=== PATIENT | male | born 1940 | race Caucasian/White ===

== ENCOUNTER → 2017-10-18 | Outpatient (RCR) | payer MEDICARE, SELFPAY | LOC: OT 07-19 07:52 | PROVIDERS: PCP Internal Medicine; Visit Provider Nurse Practitioner Family | DX: M84.44 Pathological fracture, hand and fingers (principal) | CPT/HCPCS: G8990; G8991; G8992; 97140 ==

== ENCOUNTER → 2017-12-24 13:40 | Outpatient (CLI) | payer MEDICARE, SELFPAY ==
--- NOTE | 2017-12-24 13:52 | XR_ITS ---
XR hip RT 2-3V w/pelvis HISTORY: Right hip pain ITS.REASON: BILAT KNEE AND HIP ARTHRITIS ORDERING PHYSICIAN: Rob Ayala PATIENT AGE: 77 years COMPARISON: None FINDINGS: Mild osteoarthritic changes involve the right hip. No fracture or dislocation. No lytic or blastic change. There is a well-circumscribed 3 cm sclerotic focus along the mid sacrum. This was mentioned on previous exam of 6-15 and is not significantly changed. IMPRESSION: Osteoarthritis of the right hip
--- NOTE | 2017-12-24 13:52 | XR_ITS ---
XR hip LT 2-3V w/pelvis HISTORY: Left hip pain ITS.REASON: BILAT KNEE AND HIP ARTHRITIS ORDERING PHYSICIAN: Rob Ayala PATIENT AGE: 77 years COMPARISON: 03/22/2015 FINDINGS: There are mild osteoarthritic changes of the left hip not significantly changed. No acute fracture or dislocation. No lytic or blastic change. IMPRESSION: No change mild osteoarthritis of the left hip
--- NOTE | 2017-12-24 13:52 | XR_ITS ---
XR knee RT 3V HISTORY: Right knee pain ITS.REASON: BILAT KNEE AND HIP ARTHRITIS ORDERING PHYSICIAN: Rob Ayala PATIENT AGE: 77 years COMPARISON: 11/05/2011 FINDINGS: There are moderate osteoarthritic changes involving all 3 compartments with decrease in the joint space and osteophyte formation. Chondrocalcinosis involves the menisci. No fracture or dislocation. IMPRESSION: Moderate osteoarthritis of the right knee with chondrocalcinosis overall not significant changed
--- NOTE | 2017-12-24 13:52 | XR_ITS ---
XR knee LT 3V HISTORY: Left knee pain ITS.REASON: BILAT KNEE AND HIP ARTHRITIS ORDERING PHYSICIAN: Rob Ayala PATIENT AGE: 77 years COMPARISON: 03-22-15 FINDINGS: There are moderate to severe osteoarthritic changes involving all 3 compartments greater at the medial compartment with decrease in the joint space and osteophyte formation. Soft tissue calcification is present along the medial femoral condyle and could be due to prior avulsion fracture or old ligamentous injury. This has developed since previous exam. There is chondrocalcinosis of the menisci No fracture or dislocation. IMPRESSION: 1. Moderate to severe osteoarthritic changes which has somewhat progressed when compared to the previous exam. 2. Calcification along the medial femoral condyle which may be seen with prior MCL avulsion/Debby-Stieda lesion
== END ==
PROVIDERS: PCP Internal Medicine; Visit Provider Internal Medicine
DX: M17.0 Bilateral primary osteoarthritis of knee (principal); M16.0 Bilateral primary osteoarthritis of hip
CPT/HCPCS: 73502; 73562

== ENCOUNTER 2018-04-01 08:30 | Outpatient (RCR) | payer MEDICARE, SELFPAY | END 2018-04-01 08:31 | disposition home or self-care (01) | LOC: PT 08:30 | PROVIDERS: Family Provider Internal Medicine; PCP Internal Medicine; Visit Provider Orthopaedic Surgery | DX: M17.0 Bilateral primary osteoarthritis of knee (principal) | CPT/HCPCS: 97110; 97112; 97163 ==

== ENCOUNTER → 2018-06-24 10:25 | Outpatient (CLI) | payer MEDICARE, SELFPAY ==
[2018-06-24 10:30] LABS: Microscopic, Urine URINE MICROSCOPIC (MICROSCOPIC)
--- NOTE | 2018-06-24 10:42 | XR_ITS ---
XR chest 2V HISTORY: ITS.REASON: HTN ORDERING PHYSICIAN: Rob Ayala PATIENT AGE: 77 years COMPARISON: 12/04/2012 FINDINGS: There has been a prior median sternotomy. Coronary artery calcifications are present. Normal heart size. Lungs are free of acute infiltrate. Degenerative changes are present in the thoracic spine. There is mild wedging of T9 which appears chronic. IMPRESSION: Prior CABG, no change with no acute finding
[2018-06-24 10:54] LABS: Basophils # 0.1 K/mm3 (0-0.2); Basophils % 0.7 % (0.1-2.0); Eosinophils # 0.1 K/mm3 (0.0-0.4); Eosinophils % 1.6 % (0.1-12.0); Hematocrit 44.4 % (42.0-52.0); Hemoglobin 14.2 g/dL (14.1-18.0); Lymphocytes # 1.7 K/mm3 (0.7-4.5); Lymphocytes % 23.7 K/mm3 (10-50); Mean Corpuscular HGB Conc 31.9 g/dL (31.8-35.4); Mean Corpuscular Hemoglobin 28.6 pg (27.0-31.2); Mean Corpuscular Volume 89.7 fl (80-94); Mean Platelet Volume 7.2 fl (7.4-10.4); Monocytes # 0.5 K/mm3 (0.1-1.0); Neutrophils # 4.8 K/mm3 (1.8-7.8); Neutrophils % 67.1 % (37.0-80.0); Platelet Count 225 K/mm3 (142-424); Red Blood Count 4.95 M/mm3 (4.60-6.20); Red Cell Distribution Width 13.2 % (11.5-17.5); White Blood Count 7.1 K/mm3 (4.8-10.8)
[2018-06-24 11:02] LABS: Activated Partial Thrombo Time 25.9 seconds (23.6-34.0); INR 0.95 (0.9-1.1); Prothrombin Time 9.8 seconds (9.4-11.8)
[2018-06-24 11:21] LABS: Appearance,Urine CLEAR (Clear); Bilirubin,Urine Negative (Negative); Blood, Urine Negative (Negative); Color,Urine YELLOW (Yellow); Glucose,Urine (UA) 1+ (Negative); Ketones,Urine Negative (Negative); Leukocyte Esterase,Urine Negative (Negative); Nitrate,Urine Negative (Negative); Protein,Urine Negative (Negative); Urobilinogen,Urine 0.2 EU/dl (0.2)
[2018-06-24 11:37] LABS: Bacteria,Urine Trace /lpf
[2018-06-24 12:12] LABS: Hemoglobin A1C 8.5 % (0.0-7.0)
[2018-06-24 13:44] LABS: Anion Gap 15.4 mEq/L (5-15); Blood Urea Nitrogen 17 mg/dL (7-18); Carbon Dioxide 29 mmol/L (21.0-32.0); Chloride 100 mmol/L (98-107); Creatinine,Serum 1.24 mg/dL (0.70-1.30); Estimated Glomerular Filt Rate 57 ml/min (>60); GFR (African American) 69 ML/MIN (>60); Glucose 231 mg/dL (74-106); Potassium 4.4 mmoL/L (3.5-5.1); Sodium 140 mmol/L (136-145)
== END ==
PROVIDERS: PCP Internal Medicine; Visit Provider Internal Medicine
DX: Z01.810 Encounter for preprocedural cardiovascular examination (principal); E11.59 Type 2 diabetes mellitus with other circulatory complications; I25.10 Atherosclerotic heart disease of native coronary artery without angina pectoris; I10 Essential (primary) hypertension; M17.0 Bilateral primary osteoarthritis of knee
CPT/HCPCS: 36415; 71046; 80048; 81001; 83036; 85025; 85610; 85730

== ENCOUNTER 2018-10-09 10:00 | Outpatient (RCR) | payer MEDICARE, SELFPAY | END 2018-10-09 10:05 | disposition home or self-care (01) | LOC: PT 10:00 | PROVIDERS: Visit Provider Orthopaedic Surgery | DX: Z96.651 Presence of right artificial knee joint (principal) | CPT/HCPCS: 97110; 97140; 97163 ==

== ENCOUNTER 2019-01-30 10:00 | Outpatient (RCR) | payer MEDICARE, SELFPAY | END 2019-01-30 10:05 | disposition home or self-care (01) | LOC: PT 10:00 | PROVIDERS: Visit Provider Orthopaedic Surgery | DX: R26.9 Unspecified abnormalities of gait and mobility (principal); Z96.652 Presence of left artificial knee joint | CPT/HCPCS: 97016; 97033; 97110; 97112; 97140; 97163 ==

== ENCOUNTER → 2019-06-16 14:11 | Outpatient (CLI) | payer MEDICARE, SELFPAY ==
[2019-06-16 15:38] LABS: Blood Urea Nitrogen 28 mg/dL (7-18); Creatinine,Serum 1.34 mg/dL (0.70-1.30); Estimated Glomerular Filt Rate 52 ml/min (>60); GFR (African American) 63 ML/MIN (>60)
== END ==
PROVIDERS: Visit Provider Psychiatry & Neurology Neurology
DX: R79.89 Other specified abnormal findings of blood chemistry (principal)
CPT/HCPCS: 36415; 82565; 84520

== ENCOUNTER → 2019-06-19 09:46 | Outpatient (CLI) | payer MEDICARE, SELFPAY ==
--- NOTE | 2019-06-19 09:54 | CA_ITS ---
APPROVED REPORT Driver Examiner: TIM Laterality: Bilateral Study Quality: Good Indications: Dizziness and Vertigo, CVA/TIA: Doppler Spectral Velocity Analysis ECA (R) 108.00/ cm/s ECA (L) 88.80/ cm/s dICA (R) 85.60/23.60 cm/s dICA (L) 62.80/19.80 cm/s Brock (R) 62.10/15.70 cm/s Brock (L) 58.70/17.20 cm/s pICA (R) 42.40/9.43 cm/s pICA (L) 41.60/14.10 cm/s dCCA (R) 66.00/12.60 cm/s dCCA (L) 65.20/14.10 cm/s pCCA (R) 61.30/13.40 cm/s pCCA (L) 90.40/14.10 cm/s Vert (R) 40.10/ cm/s Vert (L) 45.60/ cm/s ICA/CCA 1.30 ICA/CCA 0.96 Findings Duplex evaluation demonstrates stenosis of the right proximal internal carotid artery in the range of 20-49% with PSV <140 cm/sec, EDV <100 cm/sec, and IC/CC Ratio <4.0.Duplex evaluation demonstrates stenosis of the left proximal internal carotid artery <20% with PSV <140 cm/sec, EDV <100 cm/sec, and IC/CC Ratio <4.0.Antegrade flow seen bilateral vertebral arteries. Conclusion Duplex evaluation demonstrates stenosis of the right proximal internal carotid artery in the range of 20-49% with PSV <140 cm/sec, EDV <100 cm/sec, and IC/CC Ratio <4.0.Duplex evaluation demonstrates stenosis of the left proximal internal carotid artery <20% with PSV <140 cm/sec, EDV <100 cm/sec, and IC/CC Ratio <4.0.Antegrade flow seen bilateral vertebral arteries. Electronically signed by : Jim Pisano MD 06/19/2019 14:23:55
== END ==
PROVIDERS: PCP Internal Medicine; Visit Provider Psychiatry & Neurology Neurology
DX: I63.89 Other cerebral infarction (principal)
CPT/HCPCS: 93306; 93880

== ENCOUNTER → 2019-06-23 08:34 | Outpatient (CLI) | payer MEDICARE, SELFPAY ==
--- NOTE | 2019-06-23 08:38 | MR_ITS ---
PROCEDURE: MR HEAD/BRAIN WO/W CON CLINICAL INDICATION: ISCHEMIC STROKE, CEREBRAL INFARCTION Multiple mini strokes. Right hand and fingers affected, dizziness COMPARISON: HEADWO CT head/brain wo con from 05/06/2019 TECHNIQUE: Multiplanar multi echo sequences are performed without and with gadolinium enhancement FINDINGS: There is generalized atrophy with periventricular ischemic gliotic change. There are old bilateral lacunar infarctions of the basal ganglia. There is a small area of restricted diffusion in the left silverio radiata in the subcortical region consistent with a small area of acute/subacute infarction. No intracranial hemorrhage midline shift or mass effect. No enhancing lesions are evident. The cerebellopontine angle, cerebellum, and brainstem are unremarkable. Trace air-fluid level noted in the left maxillary sinus. There are degenerative changes in the upper cervical spine with bulging disc at C3-C4 and C4-C5 with suspected could severe canal stenosis at C4-C5 and may be confirmed with follow-up MRI of the cervical spine if clinically warranted IMPRESSION: 1. Small acute/subacute subcortical infarction in the left silverio radiata of the parietal lobe 2. Atrophy with chronic ischemic changes. 3. 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
== END ==
PROVIDERS: PCP Internal Medicine; Visit Provider Psychiatry & Neurology Neurology
DX: I63.9 Cerebral infarction, unspecified (principal)
CPT/HCPCS: 70553; A9576

== ENCOUNTER 2019-09-29 10:00 | Outpatient (RCR) | payer MEDICARE, SELFPAY | END 2019-09-29 10:05 | disposition home or self-care (01) | LOC: PT 10:00 | PROVIDERS: PCP Internal Medicine; Visit Provider Psychiatry & Neurology Neurology | DX: R26.81 Unsteadiness on feet (principal) | CPT/HCPCS: 97110; 97112; 97163; 97164 ==

== ENCOUNTER → 2020-11-28 09:35 | Outpatient (CLI) | payer MEDICARE, SELFPAY ==
--- NOTE | 2020-11-28 09:40 | XR_ITS ---
PROCEDURE: XR SHOULDER LT MIN 2V CLINICAL INDICATION: FALL, LT SHOULDER INJURY/WEAKNESS Posttraumatic pain COMPARISON: No exams were available for comparison FINDINGS: There are moderate osteoarthritic changes of the acromioclavicular joint and glenohumeral joint. No acute fracture or dislocation is evident. There is a prominent spur along the undersurface the chromium causing severe subacromial stenosis. This may result in impingement symptomatology and rotator pathology. MRI may further evaluate if clinically desired. IMPRESSION: 1. No acute fracture. 2. Osteoarthritis with subacromial spurring and subacromial stenosis Dictated by: Jim Pisano MD 11/28/2020 10:01 Jim Pisano MD in [facility] 11/28/2020 10:01
== END ==
PROVIDERS: PCP Internal Medicine; Visit Provider Internal Medicine
DX: W19.XXXA Unspecified fall, initial encounter (principal); S49.92XA Unspecified injury of left shoulder and upper arm, initial encounter; R53.1 Weakness
CPT/HCPCS: 73030

== ENCOUNTER → 2020-11-29 08:05 | Outpatient (CLI) | payer MEDICARE, SELFPAY ==
--- NOTE | 2020-11-29 08:10 | MR_ITS ---
PROCEDURE: MR SHOULDER LT WO CON CLINICAL INDICATION: LEFT SHOULDER INJURY, LT SHOULDER PAIN S/P FALL WITH INJURY TO LEFT SHOULDER. PT C/O LIMITED ROM AND STATES HE HEARD A POP 4 DAYS AGO. PRIOR HX OF LEFT SHOULDER SURGERY FOR ROTATOR CUFF. PT HAS SIGNIFICANT BRUISING OVER LEFT SHOULDER AREA. COMPARISON: CR XR SHOULDER LT MIN 2V from 11/28/2020 TECHNIQUE: Routine multiplanar multi echo sequences are performed without gadolinium enhancement. FINDINGS: There is diffuse increased T2 signal of the soft tissues of the left shoulder in the subcoracoid region, axillary region, subdeltoid area and at the shoulder joint consistent with edematous/hemorrhagic changes from the patient's recent trauma. There is some artifact present from prior surgery. There are osteoarthritic changes of the acromioclavicular joint with hypertrophic changes along the undersurface of the acromion with subacromial stenosis. There is complete tear of the infraspinatus tendon with retraction of the musculotendinous fibers. There has been prior repair of the supraspinatus tendon. Some fibers do appear intact. The subscapularis and teres minor tendons appear intact. No obvious labral tear. There is a small shoulder joint effusion. Heterogeneous signal intensity is present involving the humeral head at the bicipital tendon groove region. There is thickening of the tissues at this area with increase in T2 signal. The bicipital tendon appears thickened at this area cannot confirm that the bicipital tendon is intact proximal to this region. Prominent subchondral cystic changes are present involving the humeral head with irregularity of the greater tuberosity there is some artifact from metallic fragments in the subcutaneous tissues. There is a slightly high-riding humeral head IMPRESSION: 1. Osteoarthritic changes of the acromioclavicular joint and glenohumeral joint with high-riding humeral head and subacromial stenosis. 2. Complete tear of the infraspinatus tendon with retraction of the musculotendinous fibers. 3. Prior supraspinatus repair. At least some fibers do appear intact to the greater tuberosity region. 4. Thickening of the bicipital tendon at the bicipital groove. Cannot confirm that the bicipital tendon is intact proximal to this region. 5. Postsurgical changes with artifact with subchondral cystic changes of the humeral head and shoulder joint effusion. 6. Diffuse increased T2 signal within the soft tissues deep to the deltoid and about the shoulder consistent with edematous changes and or hemorrhage from recent trauma Dictated by: Jim Pisano MD 12/01/2020 07:05 Jim Pisano MD in [facility] 12/01/2020 07:05
== END ==
PROVIDERS: PCP Internal Medicine; Visit Provider Internal Medicine
DX: M25.512 Pain in left shoulder (principal); S49.92XA Unspecified injury of left shoulder and upper arm, initial encounter
CPT/HCPCS: 73221

== ENCOUNTER → 2021-02-01 14:37 | Outpatient (CLI) | payer MEDICARE, SELFPAY ==
[2021-02-01 14:46] LABS: Microscopic, Urine URINE MICROSCOPIC (MICROSCOPIC)
--- NOTE | 2021-02-01 15:27 | ECG_ITS ---
APPROVED REPORT Exam: Resting ECG HR:91 bpm ECG Measurements Heart Rate 91 AXES ID 178 P 52 QRSd 166 QRS -60 QT 402 T 46 QTc 494 Conclusion Normal sinus rhythm Right bundle branch block Left anterior fascicular block Bifascicular block Minimal voltage criteria for LVH, may be normal variant Abnormal ECG Electronically signed by : Rob Ayala, 02/01/2021 16:46:09
[2021-02-01 15:37] LABS: Basophils % 0.4 % (0.1-2.0); Eosinophils # 0.1 K/mm3 (0.0-0.4); Eosinophils % 0.9 % (0.1-12.0); Hematocrit 43.7 % (42.0-52.0); Hemoglobin 14.1 g/dL (14.1-18.0); Lymphocytes # 1.5 K/mm3 (0.7-4.5); Lymphocytes % 17.9 % (10-50); Mean Corpuscular HGB Conc 32.3 g/dL (31.8-35.4); Mean Corpuscular Hemoglobin 29.5 pg (27.0-31.2); Mean Corpuscular Volume 91.4 fl (80-94); Mean Platelet Volume 8.3 fl (7.4-10.4); Monocytes # 0.4 K/mm3 (0.1-1.0); Monocytes % 5.2 % (1.7-9.3); Neutrophils # 6.4 K/mm3 (1.8-7.8); Neutrophils % 75.6 % (37.0-80.0); Platelet Count 213 K/mm3 (142-424); Red Blood Count 4.78 M/mm3 (4.60-6.20); Red Cell Distribution Width 13.3 % (11.5-17.5); White Blood Count 8.4 K/mm3 (4.8-10.8)
[2021-02-01 15:42] LABS: Appearance,Urine CLEAR (Clear); Bilirubin,Urine Negative (Negative); Blood, Urine Negative (Negative); Color,Urine YELLOW (Yellow); Glucose,Urine (UA) 2+ (Negative); Ketones,Urine Negative (Negative); Leukocyte Esterase,Urine Negative (Negative); Nitrate,Urine Negative (Negative); Protein,Urine Negative (Negative); Specific Gravity, Urine 1.025 (1.005-1.030); Urobilinogen,Urine 0.2 EU/dl (0.2)
[2021-02-01 16:06] LABS: Chloride 100 mmol/L (98-107); Sodium 136 mmol/L (136-145)
[2021-02-01 16:07] LABS: Potassium 4.5 mmoL/L (3.5-5.1)
[2021-02-01 16:09] LABS: Blood Urea Nitrogen 27 mg/dl (9-20)
[2021-02-01 16:10] LABS: Anion Gap 17.5 mEq/L (5-15); Calcium 9.8 mg/dl (8.4-10.2); Carbon Dioxide 23 mmol/L (22.0-30.0); Estimated Glomerular Filt Rate 65 ml/min (>60); GFR (African American) 78 ML/MIN (>60); Glucose 266 mg/dl (74-100)
[2021-02-01 16:35] LABS: Activated Partial Thrombo Time 25.7 seconds (22.8-30.6); INR 0.87 (0.9-1.1); Prothrombin Time 10.4 seconds (10.1-12.5)
[2021-02-01 17:17] LABS: Bacteria,Urine Trace /lpf; RBC,Urine Occasional #/hpf (0-3); Squamous Epithelial Cell,Urine Occasional #/hpf (0-5)
[2021-02-01 19:10] LABS: Hemoglobin A1C 9.3 % (4.0-6.0)
== END ==
PROVIDERS: Visit Provider Internal Medicine
DX: Z01.810 Encounter for preprocedural cardiovascular examination (principal); I10 Essential (primary) hypertension; E11.59 Type 2 diabetes mellitus with other circulatory complications; E11.42 Type 2 diabetes mellitus with diabetic polyneuropathy; Z79.4 Long term (current) use of insulin; Z51.81 Encounter for therapeutic drug level monitoring; Z79.01 Long term (current) use of anticoagulants
CPT/HCPCS: 36415; 80048; 81001; 83036; 85025; 85610; 85730; 93005

== ENCOUNTER 2021-02-15 08:00 | Outpatient (RCR) | payer MEDICARE, SELFPAY | END 2021-02-15 08:05 | disposition home or self-care (01) | LOC: OT 08:00 | PROVIDERS: PCP Internal Medicine; Visit Provider Orthopaedic Surgery | DX: M75.102 Unspecified rotator cuff tear or rupture of left shoulder, not specified as traumatic (principal) | CPT/HCPCS: 97014; 97110; 97140; 97164; 97166; G0283 ==

== ENCOUNTER → 2021-06-23 12:08 | Outpatient (CLI) | payer MEDICARE, SELFPAY ==
--- NOTE | 2021-06-23 12:14 | XR_ITS ---
PROCEDURE: XR LUMBAR SPINE MIN 4V CLINICAL INDICATION: S/P FALL, LOW BACK AND BUTTOCK PAIN COMPARISON: No exams were available for comparison FINDINGS: There is straightening of the normal curvature. There is marked multilevel degenerate changes multilevel disc space narrowing with prominent anterior and mild bilateral osteophytic spurring. There appears to be possible fusion of anterior osteophytic spurs at the L4-5 level. There is no definite pars defect seen. There are hypertrophic facet changes at the L2-3 level through the L5-S1 levels. It would be difficult to exclude bony spinal stenosis lower lumbar spine and if clinically suspected a CT scan lumbar spine be helpful. The SI joints appear normal. There is an apparent old healed fracture of the posterior aspect of the right 12th rib. IMPRESSION: Marked multilevel degenerate changes, straightening of the normal curvature likely secondary to the degenerative changes though muscle spasm the possibility as well Dictated by: Dr. Odin Van MD 06/23/2021 14:29 Dr. Odin Van MD in [facility] 06/23/2021 14:29
--- NOTE | 2021-06-23 12:15 | XR_ITS ---
PROCEDURE: XR PELVIS 1-2V CLINICAL INDICATION: S/P FALL, LOW BACK PAIN AND BUTTOCK PAIN COMPARISON: CR HIPCMLT XR hip LT 2-3V w/pelvis from 12/24/2017 TECHNIQUE: XR Pelvis AP View FINDINGS: No fracture or dislocation is evident. The SI joints and symphysis pubis appear normal. There is no significant joint space narrowing of either hip. There is mild osseous whiskering of the anterior superior iliac spines bilaterally. No lytic or blastic change. IMPRESSION: No acute findings. Dictated by: Dr. Odin Van MD 06/23/2021 14:31 Dr. Odin Van MD in [facility] 06/23/2021 14:31
== END ==
PROVIDERS: PCP Internal Medicine; Visit Provider Internal Medicine
DX: M54.5 Low back pain (principal); R10.2 Pelvic and perineal pain
CPT/HCPCS: 72110; 72170

== ENCOUNTER 2021-07-20 23:35 | Emergency (ER) | payer MEDICARE, SELFPAY ==
[2021-07-20 23:33] VITALS: BP 174/96; PULSE 86; RESP 20; TEMP 36.8; O2SAT 97; BMI 32.5
--- NOTE | 2021-07-20 23:38 | CT_ITS ---
PROCEDURE INFORMATION: Exam: CT Head Without Contrast Exam date and time: 07/20/2021 11:38 PM Age: 81 years old Clinical indication: Patient HX: Falls, abrasions to top of head, dizziness; Additional info: Fall TECHNIQUE: Imaging protocol: Computed tomography of the head without contrast. 3D rendering (Not supervised by radiologist): MIP and/or 3D reconstructed images were created by the technologist. Radiation optimization: All CT scans at this facility use at least one of these dose optimization techniques: automated exposure control; mA and/or kV adjustment per patient size (includes targeted exams where dose is matched to clinical indication); or iterative reconstruction. COMPARISON: MR HEAD/BRAIN WO/W CON 06/23/2019 9:01 AM FINDINGS: Brain: Atrophy and chronic small vessel ischemic changes. No hemorrhage. No mass effect or midline shift. 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 Paranasal sinuses: Visualized sinuses are unremarkable. No fluid levels. Mastoid air cells: Visualized mastoid air cells are well aerated. Bones/joints: Unremarkable. No acute fracture. Soft tissues: Unremarkable. IMPRESSION: Chronic changes in the brain but no acute intracranial abnormality.
--- NOTE | 2021-07-20 23:47 | HMH.EDGENADL ---
ED Disposition Clinical Impression: Hyperglycemia Closed head injury Qualifiers: Encounter type: initial encounter Qualified Code(s): S09.90XA - Unspecified injury of head, initial encounter Disposition: Home, Self-Care Condition on Discharge: Good Instructions: How to Prevent Falls Additional Instructions: Please follow up with your PCP and return with further falls or concerns Referrals: Rob Ayala [Primary Care Provider] - - Critical Care Critical Care Time: No Attestation: On 07/20/21, the high probability of a clinically significant, sudden or life threatening deterioration of the following system(s) required my full and direct attention, intervention and personal management. The time I documented below is in addition to time spent performing reported procedures but includes the following listed in this critical care notation. Medical Decision Making - Cosme Inquiry Pt receiving controlled substance: No Vital Signs: 07/20/21 23:33 07/21/21 01:28 Temperature 98.3 F 98.3 F Temperature Source Oral Oral Pulse Rate 82 Pulse Rate [Right] 86 Respiratory Rate 20 20 Blood Pressure 154/73 H Blood Pressure [Right Arm] 174/96 H Blood Pressure Mean [Right Arm] 122 Blood Pressure Source [Right Arm] Automatic Cuff 02 Sat by Pulse Oximetry 97 Oxygen Delivery Method Room Air - Lab Data Lab Results 07/21/21 00:10: WBC 10.3, RBC 4.27 L, Hgb 12.8 L, Hct 39.9 L, MCV 93.6, MCH 30.1, MCHC 32.2, RDW 13.7, Plt Count 311, MPV 8.4, Neut % (Auto) 81.3 H, Lymph % (Auto) 10.8, [place] % (Auto) 5.7, Eos % (Auto) 1.4, Baso % (Auto) 0.8, Neut # (Auto) 8.3 H, Lymph # (Auto) 1.1, [place] # (Auto) 0.6, Eos # (Auto) 0.2, Baso # (Auto) 0.1 07/21/21 00:10: Sodium 133 L, Potassium 4.5, Chloride 99, Carbon Dioxide 24, Anion Gap 14.5, BUN 30 H, Creatinine 1.40 H, Estimated Creat Clear 66, Estimated GFR 49 L, Est GFR ( Amer) 59, Glucose 501 H*, Calcium 8.8, Magnesium 1.4 L, Total Bilirubin 0.3, AST 17, ALT 12, Alkaline Phosphatase 119, Troponin I < 0.01, Total Protein 7.4, Albumin 3.9, Globulin 3.5 H, Albumin/Globulin Ratio 1.1 Result diagrams: 07/21/21 00:10 07/21/21 00:10 Orders (Tests/Meds): ED MEDICATIONS Discontinued Medications Generic Name Dose Route Start Last Admin Trade Name Rupinder PRN Reason Stop Dose Admin Lactated Ringer's 1,000 mls @ 999 mls/hr 07/21/21 00:45 07/21/21 00:44 Lactated Ringer's 1000 Ml Bag IV 07/21/21 01:45 999 mls/hr .Q1H1M JOSELIN Administration Medical Decision Narrative: The patient is a 81 year old male on plavix who presents after fall. He is awake, alert, stable. He is neurologically intact. No trauma except for abrasions to the forehead and nose. No midline c-spine tenderness. Due to blood thinners CT head was ordered and obtained - this was negative. Spoke to patients daughter who states patient is having more frequent falls and she does not think patient is safe to be at home alone. Labs were ordered to assess for etiology of falls and were unactionable except for hyperglycemia to 500 without anion gap. No evidence of DKA. He was givne 1L IVF. Discussed admission with patient who adamantly refuses. He has decision making capacity and understands the risks. Will discharge home with return precautions and follow up with PCP General Adult HPI - General Chief complaint: Fall Stated complaint: Fall, facial lac Time Seen by Provider: 07/20/21 23:36 Mode of Arrival: EMS Limitations: No Limitations Description of Symptoms (Recalled from ER Triage Doc. by RN): Pt was attempting to remove his shirt, became dizzy and then fell forward striking his head into a wall. There is small lac to bridge of nose and abrasions to forehead, top of head, and upper abd. There is also a small amount of blood present and bruising to mid abd that pt states is from his insulin injection. ABD is soft, non-tender. No c/o pain at this time. Pt denies any current dizziness. - History of Present Ill
--- NOTE | 2021-07-20 23:58 | XR_ITS ---
PROCEDURE INFORMATION: Exam: XR Chest Exam date and time: 07/20/2021 11:58 PM Age: 81 years old Clinical indication: Injury or trauma; Laceration; Without foreign body; Patient HX: Fall, abrasions to head and face; Additional info: Falls TECHNIQUE: Imaging protocol: XR of the chest. Views: 1 view. COMPARISON: CR (CHEST, CXR AP LANDSCAPE) 05/06/2019 3:15 PM FINDINGS: Lungs: Coarse interstitial lung markings. Mild atelectasis in the lung bases. Pleural spaces: Unremarkable. No pleural effusion. No pneumothorax. Heart/Mediastinum: Unremarkable. No cardiomegaly. Bones/joints: Midline sternotomy. IMPRESSION: No acute cardiopulmonary process.
--- NOTE | 2021-07-21 00:18 | PC.NURSE ---
Pt was initially refusing lab work, stating well I ain't staying so you don't need to do it . Let pt know that he had a right to refuse, although the MD ordered this to check his heart enzyme, rbc, wbc and kidney fx given that he had fallen at home several is diabetic and takes anti-platelet plavix. Pt then states well ok, you can check my blood, but I'm not staying . Understood pt's concerns. MD aware. Confirmed with pt he was giving consent for labs work and IV. Pt states yes , Anurag Griggs RN present also.
[2021-07-21 00:23] LABS: Basophils # 0.1 K/mm3 (0-0.2); Basophils % 0.8 % (0.1-2.0); Eosinophils # 0.2 K/mm3 (0.0-0.4); Eosinophils % 1.4 % (0.1-12.0); Hematocrit 39.9 % (42.0-52.0); Hemoglobin 12.8 g/dL (14.1-18.0); Lymphocytes # 1.1 K/mm3 (0.7-4.5); Lymphocytes % 10.8 % (10-50); Mean Corpuscular HGB Conc 32.2 g/dL (31.8-35.4); Mean Corpuscular Hemoglobin 30.1 pg (27.0-31.2); Mean Corpuscular Volume 93.6 fl (80-94); Mean Platelet Volume 8.4 fl (7.4-10.4); Monocytes # 0.6 K/mm3 (0.1-1.0); Monocytes % 5.7 % (1.7-9.3); Neutrophils # 8.3 K/mm3 (1.8-7.8); Neutrophils % 81.3 % (37.0-80.0); Platelet Count 311 K/mm3 (142-424); Red Blood Count 4.27 M/mm3 (4.60-6.20); Red Cell Distribution Width 13.7 % (11.5-17.5); White Blood Count 10.3 K/mm3 (4.8-10.8)
[2021-07-21 00:30] LABS: Alanine Aminotransferase 12 U/L (12-78); Albumin Level 3.9 g/dl (3.5-5.0); Albumin/Globulin Ratio 1.1 (1.1-1.8); Alkaline Phosphatase 119 U/L (38-126); Anion Gap 14.5 mEq/L (5-15); Aspartate Amino Transferase 17 U/L (17-59); Bilirubin,Total 0.3 mg/dl (0.2-1.3); Blood Urea Nitrogen 30 mg/dl (9-20); Calcium 8.8 mg/dl (8.4-10.2); Carbon Dioxide 24 mmol/L (22.0-30.0); Chloride 99 mmol/L (98-107); Creatinine Clearance Estimated 66 mL/min (50-200); Estimated Glomerular Filt Rate 49 ml/min (>60); GFR (African American) 59 ML/MIN (>60); Globulin 3.5 g/dL (1.3-3.2); Magnesium 1.4 mg/dl (1.6-2.3); Potassium 4.5 mmoL/L (3.5-5.1); Sodium 133 mmol/L (136-145); Total Protein,Serum 7.4 g/dl (6.3-8.2)
[2021-07-21 00:35] LABS: Glucose 501 mg/dl (74-100)
[2021-07-21 00:48] LABS: Troponin I < 0.01 ng/ml (0.00-0.034)
[2021-07-21 01:28] VITALS: BP 154/73; PULSE 82; RESP 20; TEMP 36.8; O2SAT 97
== END 2021-07-21 01:29 | disposition home or self-care (01) ==
PROVIDERS: Emergency Provider Emergency Medicine; PCP Internal Medicine
DX: S09.90XA Unspecified injury of head, initial encounter (principal); R42 Dizziness and giddiness; W18.39XA Other fall on same level, initial encounter; Y92.013 Bedroom of single-family (private) house as the place of occurrence of the external cause; E11.9 Type 2 diabetes mellitus without complications; K21.9 Gastro-esophageal reflux disease without esophagitis; E78.5 Hyperlipidemia, unspecified; I10 Essential (primary) hypertension
CPT/HCPCS: 70450; 71045; 80053; 83735; 84484; 85025; 96365; 99282

== ENCOUNTER 2021-09-21 13:32 | Emergency (ER) | payer MEDICARE, SELFPAY ==
--- NOTE | 2021-09-21 13:29 | ECG_ITS ---
APPROVED REPORT Exam: Resting ECG HR:79 bpm ECG Measurements Heart Rate 79 AXES AR 172 P 53 QRSd 166 QRS -59 QT 434 T 48 QTc 497 Conclusion Normal sinus rhythm Right bundle branch block Left anterior fascicular block Bifascicular block Abnormal ECG Electronically signed by : Alfredo Fagan MD 09/22/2021 20:40:28
[2021-09-21 13:33] VITALS: BP 143/75; PULSE 80; RESP 16; TEMP 36.8; O2SAT 96; BMI 31.8
--- NOTE | 2021-09-21 13:41 | XR_ITS ---
PROCEDURE: XR CHEST PORTABLE CLINICAL HISTORY: cough COMPARISON: CR CXR1 CHEST-PORTABLE from 12/04/2012 CR CXR2V XR chest 2V from 06/24/2018 CR XR CHEST PORTABLE from 07/21/2021 FINDINGS: Prior CABG. There is lordotic positioning. No lobar consolidation or collapse apparent. There are low lung volumes. Status post right shoulder replacement. No acute bony abnormalities. IMPRESSION: No acute findings. Dictated by: Jim Pisano MD 09/21/2021 14:06 Jim Pisano MD in [facility] 09/21/2021 14:06
--- NOTE | 2021-09-21 13:43 | PC.NURSE ---
fsbs 263
--- NOTE | 2021-09-21 13:50 | HMH.EDDIZZ ---
ED Disposition Clinical Impression: Syncope due to orthostatic hypotension Disposition: Home, Self-Care Condition on Discharge: Good Instructions: DI for Syncope in Adults (Fainting) - Critical Care Critical Care Time: No Attestation: On , the high probability of a clinically significant, sudden or life threatening deterioration of the following system(s) required my full and direct attention, intervention and personal management. The time I documented below is in addition to time spent performing reported procedures but includes the following listed in this critical care notation. Medical Decision Making - Medical Records Medical records reviewed: Yes: I reviewed the patient's medical records. - Cosme Inquiry Pt receiving controlled substance: No Vital Signs: 09/21/21 13:33 09/21/21 14:00 Temperature 98.3 F Temperature Source Oral Pulse Rate 79 Pulse Rate [Right] 80 Respiratory Rate 16 Blood Pressure 120/58 L Blood Pressure [Right Arm] 143/75 H Blood Pressure Mean [Right Arm] 97 Blood Pressure Source [Right Arm] Automatic Cuff Blood Pressure Position [Right Arm] Sitting 02 Sat by Pulse Oximetry 96 94 L Oxygen Delivery Method Room Air - Lab Data Lab Results 09/21/21 14:00: WBC 9.0, RBC 4.26 L, Hgb 12.5 L, Hct 38.0 L, MCV 89.3, MCH 29.4, MCHC 32.9, RDW 14.2, Plt Count 318, MPV 8.7, Neut % (Auto) 75.7, Lymph % (Auto) 17.1, [place] % (Auto) 5.2, Eos % (Auto) 1.7, Baso % (Auto) 0.4, Neut # (Auto) 6.8, Lymph # (Auto) 1.5, [place] # (Auto) 0.5, Eos # (Auto) 0.2, Baso # (Auto) 0.0 09/21/21 14:00: Sodium 133 L, Potassium 4.0, Chloride 101, Carbon Dioxide 19 L, Anion Gap 17.0 H, BUN 30 H, Creatinine 1.80 H, Estimated Creat Clear 50, Estimated GFR 37 L, Est GFR ( Amer) 44 L, Glucose 314 H, Calcium 8.9, Total Bilirubin 0.3, AST 26, ALT 17, Alkaline Phosphatase 80, Troponin I < 0.01, NT-Pro-B Natriuret Pep 337, Total Protein 6.8, Albumin 3.9, Globulin 2.9, Albumin/Globulin Ratio 1.3 Result diagrams: 09/21/21 14:00 09/21/21 14:00 Orders (Tests/Meds): ED MEDICATIONS Generic Name Dose Route Start Last Admin Trade Name Rupinder PRN Reason Stop Dose Admin Sodium Chloride 1,000 mls @ 999 mls/hr 09/21/21 14:45 09/21/21 15:08 Sod Chlor 0.9% 1000ml Bag IV 09/21/21 15:45 999 mls/hr .Q1H1M JOSELIN Administration ORDERS Category Date Time Status Troponin I Q3H Lab 09/21/21 16:45 Ordered Troponin I Q3H Lab 09/21/21 19:45 Ordered - Radiology Data #1 Image(s): Chest Image Reviewed: Yes I reviewed the patient's radiology results, Yes I reviewed the patient's radiology image, Yes I have reviewed radiologist's interpretation Preliminary Findings: Normal/NAD, No Infiltrates Seen - ECG Data Tracing #1 I reviewed this ECG and interpreted as documented below: Normal jugular rate is 79 bpm, normal VA interval, bifascicular block with nonspecific changes ECG initial impression date: 09/21/21 ECG initial impression time: 13:29 - Reevaluation(s) Time: 15:38 Reevaluation #1: On reexamination, the patient is feeling fine. He is tolerating oral intake at this time. I do believe his symptoms are consistent with orthostatic hypotension and near syncope. Patient has no new neurologic deficits. He is to follow-up with his neurologist and primary physician in 48 hours. Given strict return precautions. Verbalized understanding. Medical Decision Narrative: 81-year-old male presenting to the emergency department after near syncopal episode. Patient appears to be at his baseline at this time. He has no new focal neurologic deficits. Apparently the patient frequently gets these episodes. Work-up initiated. Dizzy HPI - General Chief Complaint: Syncope Stated Complaint: poss. syncopal episode Time Seen by Provider: 09/21/21 13:40 Mode of Arrival: EMS Limitations: No Limitations Description of Symptoms (Recalled from ER Triage Doc. by RN): pt was at [employer] eating lunch when he had
[2021-09-21 14:00] VITALS: BP 120/58; PULSE 79; O2SAT 94
[2021-09-21 14:10] LABS: Basophils % 0.4 % (0.1-2.0); Eosinophils # 0.2 K/mm3 (0.0-0.4); Eosinophils % 1.7 % (0.1-12.0); Hemoglobin 12.5 g/dL (14.1-18.0); Lymphocytes # 1.5 K/mm3 (0.7-4.5); Lymphocytes % 17.1 % (10-50); Mean Corpuscular HGB Conc 32.9 g/dL (31.8-35.4); Mean Corpuscular Hemoglobin 29.4 pg (27.0-31.2); Mean Corpuscular Volume 89.3 fl (80-94); Mean Platelet Volume 8.7 fl (7.4-10.4); Monocytes # 0.5 K/mm3 (0.1-1.0); Monocytes % 5.2 % (1.7-9.3); Neutrophils # 6.8 K/mm3 (1.8-7.8); Neutrophils % 75.7 % (37.0-80.0); Platelet Count 318 K/mm3 (142-424); Red Blood Count 4.26 M/mm3 (4.60-6.20); Red Cell Distribution Width 14.2 % (11.5-17.5)
[2021-09-21 14:16] LABS: Alanine Aminotransferase 17 U/L (12-78); Albumin Level 3.9 g/dl (3.5-5.0); Albumin/Globulin Ratio 1.3 (1.1-1.8); Alkaline Phosphatase 80 U/L (38-126); Aspartate Amino Transferase 26 U/L (17-59); Bilirubin,Total 0.3 mg/dl (0.2-1.3); Blood Urea Nitrogen 30 mg/dl (9-20); Calcium 8.9 mg/dl (8.4-10.2); Carbon Dioxide 19 mmol/L (22.0-30.0); Chloride 101 mmol/L (98-107); Creatinine Clearance Estimated 50 mL/min (50-200); Estimated Glomerular Filt Rate 37 ml/min (>60); GFR (African American) 44 ML/MIN (>60); Globulin 2.9 g/dL (1.3-3.2); Glucose 314 mg/dl (74-100); Sodium 133 mmol/L (136-145); Total Protein,Serum 6.8 g/dl (6.3-8.2)
[2021-09-21 14:28] LABS: NT Pro Brain Natriuretic Pep. 337 pg/mL (0-450)
[2021-09-21 14:32] LABS: Troponin I < 0.01 ng/ml (0.00-0.034)
[2021-09-21 17:01] VITALS: BP 122/74; PULSE 72; RESP 16; TEMP 37; O2SAT 98
== END 2021-09-21 17:02 | disposition home or self-care (01) ==
PROVIDERS: Emergency Provider Emergency Medicine; PCP Internal Medicine
DX: I95.1 Orthostatic hypotension (principal); R55 Syncope and collapse; Z86.73 Personal history of transient ischemic attack (TIA), and cerebral infarction without residual deficits; E11.65 Type 2 diabetes mellitus with hyperglycemia; E78.5 Hyperlipidemia, unspecified; I10 Essential (primary) hypertension; Z79.899 Other long term (current) drug therapy; R06.09 Other forms of dyspnea
CPT/HCPCS: 36415; 71045; 80053; 83880; 84484; 85025; 93005; 96365; 99283

== ENCOUNTER → 2021-10-19 10:11 | Outpatient (CLI) | payer MEDICARE, SELFPAY ==
[2021-10-19 10:46] LABS: Basophils # 0.1 K/mm3 (0-0.2); Basophils % 0.8 % (0.1-2.0); Eosinophils # 0.2 K/mm3 (0.0-0.4); Eosinophils % 2.3 % (0.1-12.0); Hematocrit 39.7 % (42.0-52.0); Hemoglobin 12.9 g/dL (14.1-18.0); Lymphocytes # 1.9 K/mm3 (0.7-4.5); Lymphocytes % 23.6 % (10-50); Mean Corpuscular HGB Conc 32.5 g/dL (31.8-35.4); Mean Corpuscular Hemoglobin 29.8 pg (27.0-31.2); Mean Corpuscular Volume 91.7 fl (80-94); Mean Platelet Volume 8.1 fl (7.4-10.4); Monocytes # 0.5 K/mm3 (0.1-1.0); Monocytes % 6.6 % (1.7-9.3); Neutrophils # 5.4 K/mm3 (1.8-7.8); Neutrophils % 66.7 % (37.0-80.0); Platelet Count 304 K/mm3 (142-424); Red Blood Count 4.33 M/mm3 (4.60-6.20); Red Cell Distribution Width 14.3 % (11.5-17.5); White Blood Count 8.2 K/mm3 (4.8-10.8)
[2021-10-19 11:22] LABS: Alanine Aminotransferase 17 U/L (12-78); Albumin Level 3.9 g/dl (3.5-5.0); Albumin/Globulin Ratio 1.5 (1.1-1.8); Alkaline Phosphatase 91 U/L (38-126); Anion Gap 16.3 mEq/L (5-15); Aspartate Amino Transferase 24 U/L (17-59); Bilirubin,Total 0.3 mg/dl (0.2-1.3); Blood Urea Nitrogen 26 mg/dl (9-20); Calcium 9.1 mg/dl (8.4-10.2); Carbon Dioxide 22 mmol/L (22.0-30.0); Chloride 103 mmol/L (98-107); Estimated Glomerular Filt Rate 45 ml/min (>60); GFR (African American) 55 ML/MIN (>60); Globulin 2.6 g/dL (1.3-3.2); Glucose 205 mg/dl (74-100); Potassium 4.3 mmoL/L (3.5-5.1); Sodium 137 mmol/L (136-145); Total Protein,Serum 6.5 g/dl (6.3-8.2)
[2021-10-19 12:10] LABS: Vitamin B12 392 pg/mL (239-931)
[2021-10-19 19:29] LABS: Thyroid Stimulating Hormone 1.66 uIU/mL (0.465-4.68)
== END ==
PROVIDERS: PCP Internal Medicine; Visit Provider Specialist
DX: E11.42 Type 2 diabetes mellitus with diabetic polyneuropathy (principal); I69.30 Unspecified sequelae of cerebral infarction; Z79.4 Long term (current) use of insulin
CPT/HCPCS: 36415; 80053; 82607; 82746; 84443; 85025

== ENCOUNTER 2021-11-08 08:29 | Inpatient (IN) | payer MEDICARE, SELFPAY ==
[2021-11-08] VITALS (8 sets, daily range): BP systolic 88–129; BP diastolic 55–66; PULSE 83–120; RESP 16–29; TEMP 37.1–37.2; O2SAT 91–97; BMI 26.4; BMI 30.9
--- NOTE | 2021-11-08 08:31 | ECG_ITS ---
APPROVED REPORT Exam: Resting ECG HR:117 bpm ECG Measurements Heart Rate 117 AXES WI 128 P 2 QRSd 168 QRS -65 QT 346 T 38 QTc 415 Conclusion SINUS TACHYCARDIA RIGHT BUNDLE BRANCH BLOCK [120+ ms QRS DURATION, UPRIGHT V1, 40+ ms S IN I/aVL/V4/V5/V6] LEFT ANTERIOR FASCICULAR BLOCK [QRS AXIS <= -45, QR IN I, RS IN II] ABNORMAL ECG UNCONFIRMED REPORT Electronically signed by : Alfredo Fagan MD 11/08/2021 22:21:26
--- NOTE | 2021-11-08 08:36 | XR_ITS ---
FINAL REPORT CLINICAL HISTORY: weakness COMPARISON: September 21, 2021 FINDINGS: The heart size is normal. There is evidence of sternotomy. The mediastinum is normal. There are mild bibasilar opacities. There are no pleural effusions. There is no pneumothorax. There is no osseous abnormality. IMPRESSION: Mild bibasilar opacity, favor atelectasis. Reviewed, Interpreted and Dictated by David Rosa III, MD Transcribed by Donald Casper Authenticated by David Rosa III, MD on 11/08/2021 09:58:[address] [facility]
--- NOTE | 2021-11-08 08:38 | HMH.EDGENADL ---
ED Disposition Clinical Impression: IZZY (acute kidney injury), Encephalopathy acute Disposition: Admitted As Inpatient Condition on Discharge: Fair - Critical Care Critical Care Time: No Attestation: On , the high probability of a clinically significant, sudden or life threatening deterioration of the following system(s) required my full and direct attention, intervention and personal management. The time I documented below is in addition to time spent performing reported procedures but includes the following listed in this critical care notation. Medical Decision Making - Medical Records Medical records reviewed: Yes: I reviewed the patient's medical records. - Cosme Inquiry Pt receiving controlled substance: No Vital Signs: 11/08/21 08:53 11/08/21 09:00 11/08/21 09:33 Temperature 98.9 F Temperature Source Oral Pulse Rate 111 H Pulse Rate [Left Radial] 117 H Respiratory Rate 16 27 H Blood Pressure 117/57 L Blood Pressure [Right Arm] 129/64 Blood Pressure Mean 73 Blood Pressure Mean [Right Arm] 85 02 Sat by Pulse Oximetry 93 L 91 L Oxygen Delivery Method Room Air 11/08/21 10:00 11/08/21 14:37 Temperature 98.7 F Temperature Source Pulse Rate 111 H 107 H Pulse Rate [Left Radial] Respiratory Rate 29 H 16 Blood Pressure 88/55 L 96/65 L Blood Pressure [Right Arm] Blood Pressure Mean 66 Blood Pressure Mean [Right Arm] 02 Sat by Pulse Oximetry 91 L Oxygen Delivery Method Room Air - Lab Data Lab results reviewed: Yes: I reviewed the patient's lab results. Lab Results 11/08/21 08:35: SARS-CoV-2 (PCR) Not detected, Influenza A Untype (PCR) Not detected, Influenza Type B (PCR) Not detected 11/08/21 08:40: WBC 5.9, RBC 4.17 L, Hgb 12.2 L, Hct 37.7 L, MCV 90.4, MCH 29.3, MCHC 32.4, RDW 14.0, Plt Count 196, MPV 8.0, Neut % (Auto) 95.5 H, Lymph % (Auto) 2.4 L, Kern % (Auto) 1.4 L, Eos % (Auto) 0.4, Baso % (Auto) 0.3, Neut # (Auto) 5.7, Lymph # (Auto) 0.1 L, Kern # (Auto) 0.1, Eos # (Auto) 0.0, Baso # (Auto) 0.0, Total Counted 100, Neutrophils % (Manual) 93 H, Band Neutrophils % 3.0, Lymphocytes % (Manual) 3 L, Monocytes % (Manual) 1 L, Nucleated RBCs 1, Platelet Estimate Normal, RBC Morphology Normal 11/08/21 08:40: Sodium 132 L, Potassium 3.6, Chloride 100, Carbon Dioxide 19 L, Anion Gap 16.6 H, BUN 39 H, Creatinine 2.80 H, Estimated Creat Clear 27, Estimated GFR 22 L, Est GFR ( Amer) 27 L, Glucose 136 H, Calcium 8.6, Total Bilirubin 0.7, AST 43, ALT 24, Alkaline Phosphatase 133 H, Troponin I 0.09 H, Total Protein 6.4, Albumin 3.4 L, Globulin 3.0, Albumin/Globulin Ratio 1.1 11/08/21 08:40: Magnesium 1.4 L 11/08/21 10:43: Urine Color Yellow, Urine Appearance Cloudy, Urine pH 5.0, Ur Specific Kimberly 1.025, Urine Protein 1+, Urine Glucose (UA) 1+, Urine Ketones Trace, Urine Blood 3+, Urine Nitrate Negative, Urine Bilirubin 1+ A, Urine Urobilinogen 0.2, Ur Leukocyte Esterase 2+ A, Urine RBC 20-50, Urine WBC 20-50, Ur Squamous Epith Cells 3-5, Amorphous Sediment 1+, Urine Bacteria Trace 11/08/21 11:38: Troponin I 0.26 H 11/08/21 14:35: PT 12.0, INR 1.07 11/08/21 14:35: Troponin I 0.42 H Result diagrams: 11/08/21 08:40 11/08/21 08:40 Orders (Tests/Meds): ED MEDICATIONS Generic Name Dose Route Start Last Admin Trade Name Freq PRN Reason Stop Dose Admin Acetaminophen 650 mg 11/08/21 14:30 Acetaminophen 325mg Tab PO 12/08/21 14:29 Q4HP PRN Fever or Mild Pain Aspirin 81 mg 11/09/21 09:00 Aspirin Ec 81mg Tablet PO 12/09/21 08:59 DAILY JOSELIN Clopidogrel Bisulfate 75 mg 11/08/21 17:30 11/08/21 18:12 Clopidogrel 75mg Tab PO 12/08/21 17:29 75 mg DAILY JOSELIN Administration Lactated Ringer's 1,000 mls @ 125 mls/hr 11/08/21 14:30 Lactated Ringer's 1000 Ml Bag IV 12/08/21 14:29 .Q8H JOSELIN Insulin Human Lispro 0 unit 11/08/21 14:30 11/08/21 18:11 Humalog 100 Units/Ml 3ml Vial (Ssi) SQ 12/08/21 14:29 12 unit Q6H JOSELIN Administr
--- NOTE | 2021-11-08 08:54 | CT_ITS ---
FINAL REPORT CLINICAL HISTORY: [facility] COMPARISON: April 19, 2021 FINDINGS: Axial images of the head were obtained without contrast. Coronal reformatted images were also obtained. This study was performed with techniques to keep radiation doses as low as reasonably achievable (ALARA). Individualized dose reduction techniques using automated exposure control or adjustment of mA and/or kV according to the patient's size were employed. There is generalized age-appropriate atrophy. Periventricular low-attenuation areas are seen consistent with moderate chronic ischemic changes. There is no evidence of intracranial hemorrhage or mass. There is no evidence of acute infarct. There is no evidence of shift of the midline structures. No skull abnormality is seen on the bone window images. There is frontal scalp soft tissue swelling. There is a fluid level in the right maxillary sinus consistent with sinusitis. There is mucosal thickening in multiple other sinuses. IMPRESSION: Atrophy and moderate periventricular chronic ischemic changes. No acute intracranial abnormality identified. Sinusitis. Reviewed, Interpreted and Dictated by David Rosa III, MD Transcribed by Donald Casper Authenticated by David Rosa III, MD on 11/08/2021 10:22:07 AM [facility][1]
[2021-11-08 09:04] LABS: Coronavirus 19, PCR Not Detected (NotDetected); Influenza A, PCR Not Detected (NotDetected); Influenza B, PCR Not Detected (NotDetected)
[2021-11-08 09:12] LABS: Basophils % 0.3 % (0.1-2.0); Eosinophils % 0.4 % (0.1-12.0); Hematocrit 37.7 % (42.0-52.0); Hemoglobin 12.2 g/dL (14.1-18.0); Lymphocytes # 0.1 K/mm3 (0.7-4.5); Lymphocytes % 2.4 % (10-50); Mean Corpuscular HGB Conc 32.4 g/dL (31.8-35.4); Mean Corpuscular Hemoglobin 29.3 pg (27.0-31.2); Mean Corpuscular Volume 90.4 fl (80-94); Monocytes # 0.1 K/mm3 (0.1-1.0); Monocytes % 1.4 % (1.7-9.3); Neutrophils # 5.7 K/mm3 (1.8-7.8); Neutrophils % 95.5 % (37.0-80.0); Platelet Count 196 K/mm3 (142-424); Red Blood Count 4.17 M/mm3 (4.60-6.20); White Blood Count 5.9 K/mm3 (4.8-10.8)
[2021-11-08 09:16] LABS: Alanine Aminotransferase 24 U/L (12-78); Albumin Level 3.4 g/dl (3.5-5.0); Albumin/Globulin Ratio 1.1 (1.1-1.8); Alkaline Phosphatase 133 U/L (38-126); Anion Gap 16.6 mEq/L (5-15); Aspartate Amino Transferase 43 U/L (17-59); Bilirubin,Total 0.7 mg/dl (0.2-1.3); Blood Urea Nitrogen 39 mg/dl (9-20); Calcium 8.6 mg/dl (8.4-10.2); Carbon Dioxide 19 mmol/L (22.0-30.0); Chloride 100 mmol/L (98-107); Creatinine Clearance Estimated 27 mL/min (50-200); Estimated Glomerular Filt Rate 22 ml/min (>60); GFR (African American) 27 ML/MIN (>60); Glucose 136 mg/dl (74-100); Potassium 3.6 mmoL/L (3.5-5.1); Sodium 132 mmol/L (136-145); Total Protein,Serum 6.4 g/dl (6.3-8.2)
[2021-11-08 09:20] LABS: MANUAL DIFFERENTIAL MANUAL DIFFERENTIAL (MANUAL DIFF)
[2021-11-08 09:28] LABS: Troponin I 0.09 ng/ml (0.00-0.034)
[2021-11-08 09:55] LABS: Lymphocytes % 3 % (10-50); Monocytes % 1 % (2-9); Neutrophils % 93 % (42-76); Nucleated Red Blood Cells 1; Platelet Estimate Normal; Total Cells Counted 100
[2021-11-08 09:56] LABS: RBC Morphology Normal
--- NOTE | 2021-11-08 10:36 | ECG_ITS ---
APPROVED REPORT Exam: Resting ECG HR:112 bpm ECG Measurements Heart Rate 112 AXES UT 175 P 44 QRSd 169 QRS -59 QT 366 T 36 QTc 432 Conclusion SINUS TACHYCARDIA RIGHT BUNDLE BRANCH BLOCK [120+ ms QRS DURATION, UPRIGHT V1, 40+ ms S IN I/aVL/V4/V5/V6] LEFT ANTERIOR FASCICULAR BLOCK [QRS AXIS <= -45, QR IN I, RS IN II] ABNORMAL ECG UNCONFIRMED REPORT Electronically signed by : Alfredo Fagan MD 11/08/2021 22:21:04
[2021-11-08 10:44] LABS: Magnesium 1.4 mg/dl (1.6-2.3)
[2021-11-08 10:46] LABS: Microscopic, Urine URINE MICROSCOPIC (MICROSCOPIC)
[2021-11-08 10:49] LABS: Appearance,Urine CLOUDY (Clear); Blood, Urine 3+ (Negative); Color,Urine YELLOW (Yellow); Glucose,Urine (UA) 1+ (Negative); Ketones,Urine TRACE (Negative); Leukocyte Esterase,Urine 2+ (Negative); Nitrate,Urine Negative (Negative); Protein,Urine 1+ (Negative); Specific Gravity, Urine 1.025 (1.005-1.030); Urobilinogen,Urine 0.2 EU/dl (0.2)
[2021-11-08 10:54] LABS: Bilirubin,Urine 1+ (Negative)
[2021-11-08 11:01] LABS: Amorphous Sediment,Urine 1+ /lpf; RBC,Urine 20-50 #/hpf (0-3); WBC,Urine 20-50 #/hpf (0-3)
[2021-11-08 11:02] LABS: Bacteria,Urine Trace /lpf
[2021-11-08 13:04] LABS: Troponin I 0.26 ng/ml (0.00-0.034)
--- NOTE | 2021-11-08 13:47 | PC.NURSE ---
Ayse called from lab for critical on pt Troponin of .26. Info was verfied and confirmed.
--- NOTE | 2021-11-08 13:55 | HMH.PHAINT ---
VERIFIED HOME MEDICAITON LIST USING LISTS FROM CLINIC PHARMACY AND DR. FISHER' OFFICE
--- NOTE | 2021-11-08 14:47 | HMH.PHAVTE ---
[facility] Pharmacy VTE Monitoring - Patient Demographics Admission date: 11/08/21 Report Date: 11/08/21 Time: 14:47 Allergies/Adverse Reactions: Patient Allergies No Known Allergies Allergy (Verified 09/19/21 13:26) Height: 1.85 m Weight: 90.718 kg Patient Problems: Current Active Problems IZZY (acute kidney injury) (Acute) Encephalopathy acute (Acute) - VTE Risk Labs: VTE Related Lab Results Hgb 12.2 g/dL (14.1-18.0) L 11/08/21 08:40 Hct 37.7 % (42.0-52.0) L 11/08/21 08:40 Plt Count 196 K/mm3 (142-424) 11/08/21 08:40 BUN 39 mg/dl (9-20) H 11/08/21 08:40 Creatinine 2.80 mg/dl (0.66-1.25) H 11/08/21 08:40 Estimated Creat Clear 27 mL/min (50-200) 11/08/21 08:40 Clinical Trial Participant: No - Prophylaxis VTE Prophylaxis Ordered?: Yes Types of VTE Prophylaxis: TEDS Knee High
[2021-11-08 15:29] LABS: INR 1.07 (0.9-1.1)
[2021-11-08 15:48] LABS: Troponin I 0.42 ng/ml (0.00-0.034)
--- NOTE | 2021-11-08 15:54 | PC.NURSE ---
critical troponin result called to dr gaspar. order for cardiology consult and for pt to be seen today if possible. paging cardiology at this time.
[2021-11-08 18:58] LABS: Troponin I 0.37 ng/ml (0.00-0.034)
--- NOTE | 2021-11-08 19:53 | PC.NURSE ---
CRITICAL TROPONIN REPORTED TO DR WATTS
--- NOTE | 2021-11-08 20:11 | PC.NURSE ---
NEW ADMIT. AOX4 BUT A POOR HISTORIAN FOR ADMISSION QUESTIONS AND MED REC. TROPONINS CANCELLED PER MD. CARDIOLOGY AWARE OF CONSULT IN AM. SOFT DIET ORDERED. PT NEED ASSIST WITH EATING. RA AND TOLERATING WELL.
--- NOTE | 2021-11-08 21:42 | HMH.HP ---
*Admission Date: 11/08/21 *Chief complaint: Confusion/weakness *History of present illness: Patient is a 81-year-old male who lives alone presenting to the emergency department with chief complaint of weakness. States that he is felt weak a month. Patient had an episode of vomiting about 2 hours prior. He was able to eat breakfast this morning. He is denying diarrhea, chest pain, shortness of air, dysuria, abdominal pain. Patient states that he has not had a fall. Patient's daughter confirms that patient has been more confused recently, states that he seemed to go downhill. Patient's daughter states that he had the episode of vomiting yesterday, as well as she had a report of nonbloody diarrhea. Daughter states that he seems more confused than usual, notes that he had some fluctuating blood sugars, and that they have had difficulty having him take p.o. confirms that he has been with him since 3 PM yesterday he has had no repeated diarrhea or emesis and has been able to eat. Above note per ER intake. ER work-up revealed no acute findings on CT scan, metabolic work-up showed acute kidney injury and dehydration. Initial troponin level was borderline. Patient admitted to medicine service for IV fluids, neurologic checks, further diagnostic testing and evaluation for possible change in level of care from living independently at home. [facility] History I have reviewed the patient's past medical history: Yes Medical History: Reports:: Cancer, Diabetes Mellitus Type 2, Gastroesophageal Reflux Disease(GERD), Hyperlipidemia, Hypertension, Palpitations, Transient Ischemic Attacks (TIA) *Have you ever received a pneumonia vaccine?: No *Have you received a flu vaccine this season?: No Other Medical History: Reports: Arthritis, Cataracts Laterality Cases: Bilateral: Arthroscopy Shoulder, Carpal Tunnel Release Other Surgeries: Yes: Cancer Surgery, Cardiac Catheterization, Cardiac Surgery, Colonoscopy Amputation: No Fractures: Yes (fractured ribs 25 years ago ) - *Social History Last grade of school completed: High school graduate Smoking Status: Light tobacco smoker Tobacco Type: smokeless tobacco Alcohol Intake: never Substance Use Type: denies use *Occupational Status:: retired Housing: house Household Members: none *Travel in the last 8 weeks: None Family Hx:: Heart Attack Review of Systems - Review of Systems Review of systems:: pertinent systems reviewed and negative unless documented below Patient has no acute complaints while eating supper, however he states that I cannot eat because I am so weak. Denies specific pains. Really unable to give much of a history otherwise because of his encephalopathy. - *Neurologic Reports frequent falls, Reports weakness, Denies headache(s), Denies numbness, Denies tingling/numbness/burning sensations, Denies sensory deficit, Denies dizziness Meds Home Medications Medication Instructions Recorded Confirmed Type Clopidogrel Bisulfate [Plavix 75mg 75 mg PO DAILY 05/06/19 11/08/21 History Tab] Meloxicam 7.5 mg PO DAILYP PRN 05/06/19 11/08/21 History Metformin HCl [Metformin 1000mg 1,000 mg PO BID 05/06/19 11/08/21 History Tablets] Simvastatin 40 mg PO DAILY 05/06/19 11/08/21 History aspirin 81 mg tablet,delayed 81 mg PO DAILY 07/24/19 11/08/21 History release insulin aspar prt-insulin aspart 1 sliding scale dose SQ DIRECTED 07/24/19 11/08/21 History 100 unit/mL (70-30) subcutaneous soln omega-3 fatty acids 1,000 mg 2,000 mg PO DAILY cap 07/24/19 11/08/21 History capsule meclizine 25 mg tablet 12.5 - 25 mg PO TIDP PRN tab 09/19/21 11/08/21 History pantoprazole 40 mg tablet,delayed 40 mg PO DAILY tab 09/19/21 11/08/21 History release lisinopriL [Zestril 10mg Tab] 10 mg PO DAILY 11/08/21 11/08/21 History Allergies Allergy/AdvReac Type Severity Reaction Status Date / Time No Known Allergies Allergy Verified 09/19/21 13:26 Exam Vital signs and Labs for Last
--- NOTE | 2021-11-08 22:05 | ECG_ITS ---
APPROVED REPORT Exam: Resting ECG HR:121 bpm ECG Measurements Heart Rate 121 AXES ID 134 P 169 QRSd 165 QRS 242 QT 331 T 148 QTc 403 Conclusion SINUS TACHYCARDIA ARM LEADS REVERSED [INVERTED P AND QRS IN I] ABNORMAL RHYTHM ECG INTERPRETATION BASED ON A DEFAULT AGE OF 40 YEARS UNCONFIRMED REPORT Electronically signed by : Alfredo Fagan MD 11/13/2021 18:36:02
--- NOTE | 2021-11-08 22:12 | ECG_ITS ---
APPROVED REPORT Exam: Resting ECG HR:121 bpm ECG Measurements Heart Rate 121 AXES TX 153 P 42 QRSd 166 QRS -60 QT 338 T 37 QTc 410 Conclusion SINUS TACHYCARDIA RIGHT BUNDLE BRANCH BLOCK [120+ ms QRS DURATION, UPRIGHT V1, 40+ ms S IN I/aVL/V4/V5/V6] LEFT ANTERIOR FASCICULAR BLOCK [QRS AXIS <= -45, QR IN I, RS IN II] ABNORMAL ECG UNCONFIRMED REPORT Electronically signed by : Alfredo Fagan MD 11/09/2021 21:14:26
--- NOTE | 2021-11-08 22:14 | XR_ITS ---
PROCEDURE INFORMATION: Exam: XR Chest Exam date and time: 11/08/2021 10:14 PM Age: 81 years old Clinical indication: Shortness of breath TECHNIQUE: Imaging protocol: XR of the chest. Views: 1 view. COMPARISON: CR XR CHEST PORTABLE 11/08/2021 9:05 AM FINDINGS: Lungs: Patchy opacities and increased reticular markings are present in the left lower lung. No consolidation. Pleural spaces: Unremarkable. No pleural effusion. No pneumothorax. Heart/Mediastinum: The heart is not enlarged. Bones/joints: Mid sternotomy wires and postoperative changes of CABG noted. Right total shoulder replacement re-identified. IMPRESSION: Left lower lung patchy opacities may be due to atelectasis with scarring or pneumonia.
[2021-11-08 22:27] LABS: POC Glucose,Bedside 372 (70-110)
[2021-11-08 22:31] LABS: ABG Base Excess -8.6 mmol/L (-2.4-2.3); ABG HCO3 16.5 mmhg (22.0-26.0); ABG Oxygen Saturation 95 % (90-100); ABG PCO2 28.7 mmhg (35.0-45.0); ABG PH 7.38 mmol/L (7.35-7.45); ABG PO2 77.6 mmhg (80-100); ABG TCO2 17.4 mmhg (23-27)
[2021-11-08 22:32] LABS: Allen's Test Acceptable; Oxygen 4LPM %; Source Right Radial
[2021-11-08 22:42] LABS: Chloride 97 mmol/L (98-107); Sodium 131 mmol/L (136-145)
[2021-11-08 22:45] LABS: Alanine Aminotransferase 48 U/L (12-78); Albumin Level 3.7 g/dl (3.5-5.0); Albumin/Globulin Ratio 1.2 (1.1-1.8); Alkaline Phosphatase 162 U/L (38-126); Aspartate Amino Transferase 101 U/L (17-59); Bilirubin,Total 0.8 mg/dl (0.2-1.3); Blood Urea Nitrogen 47 mg/dl (9-20); Carbon Dioxide 20 mmol/L (22.0-30.0); Creatinine Clearance Estimated 27 mL/min (50-200); Estimated Glomerular Filt Rate 18 ml/min (>60); GFR (African American) 22 ML/MIN (>60); Globulin 3.2 g/dL (1.3-3.2); Total Protein,Serum 6.9 g/dl (6.3-8.2)
[2021-11-08 22:46] LABS: Calcium 8.4 mg/dl (8.4-10.2); Glucose 342 mg/dl (74-100)
[2021-11-08 22:54] LABS: Basophils % 0.3 % (0.1-2.0); Eosinophils % 0.2 % (0.1-12.0); Hemoglobin 12.6 g/dL (14.1-18.0); Lymphocytes # 0.5 K/mm3 (0.7-4.5); Lymphocytes % 6.2 % (10-50); Mean Corpuscular HGB Conc 31.6 g/dL (31.8-35.4); Mean Corpuscular Hemoglobin 29.4 pg (27.0-31.2); Mean Corpuscular Volume 93.2 fl (80-94); Mean Platelet Volume 8.4 fl (7.4-10.4); Monocytes # 0.1 K/mm3 (0.1-1.0); Monocytes % 1.4 % (1.7-9.3); Neutrophils % 91.9 % (37.0-80.0); Platelet Count 121 K/mm3 (142-424); Red Blood Count 4.29 M/mm3 (4.60-6.20); White Blood Count 7.6 K/mm3 (4.8-10.8)
[2021-11-08 22:56] LABS: MANUAL DIFFERENTIAL MANUAL DIFFERENTIAL (MANUAL DIFF)
[2021-11-08 23:09] LABS: NT Pro Brain Natriuretic Pep. 23800 pg/mL (0-450)
[2021-11-08 23:43] LABS: Lymphocytes % 4 % (10-50); Monocytes % 2 % (2-9); Neutrophils % 82 % (42-76); Platelet Estimate Slight Decrease; RBC Morphology Normal; Total Cells Counted 100
[2021-11-09] VITALS: BP 110/61; PULSE 103; PULSE 110; RESP 22; TEMP 37.9; O2SAT 97
[2021-11-09 02:36] LABS: Reflex Lactic Add Lactic Reflex
[2021-11-09 03:07] LABS: Lactic Acid Follow Up (RFLX 1) 1.7 mmol/L (0.7-2.1)
[2021-11-09 04:00] VITALS: BP 94/51; PULSE 75; PULSE 90; RESP 20; TEMP 37.1; O2SAT 96
[2021-11-09 05:35] VITALS: BMI 30.7
--- NOTE | 2021-11-09 05:52 | PC.NURSE ---
2215 pt rounded on and noted to be breathing heavily and appeared to be in distress, pulse noted to be 130 ekg obtained, b/p stable at 165/75 and fever 101.6, rapid red called at this time, dr tabor assessed and ordered IV bolus, long catheter, labs, abg, chest xray and stated he will call dr. gaspar with results, urine was sent when long inserted. will continue to monitor.
--- NOTE | 2021-11-09 06:12 | HMH.RR ---
Acute Rapid Response Note - Subjective Date Responded: 11/08/21 Time Responded: 22:00 Provider Note: called rapid red as pt with fever and tachycardia and not feeling well and low bp - Objective Findings: Vital Signs - Last 4 Hours Temperature 98.7 F 11/09/21 04:00 Temperature Source Oral 11/09/21 04:00 Pulse Rate 75 11/09/21 04:00 Respiratory Rate 20 11/09/21 04:00 Blood Pressure 94/51 L 11/09/21 04:00 Blood Pressure Mean 65 11/09/21 04:00 Blood Pressure Source Automatic Cuff 11/08/21 14:59 Blood Pressure Position Supine 11/08/21 14:59 02 Sat by Pulse Oximetry 96 11/09/21 04:00 Oxygen Delivery Method 11/09/21 00:00 Oxygen Flow Rate (LPM) 4 11/09/21 00:00 Lab Results for Past 12 Hours 11/09/21 02:45: Lactate 1.7 11/08/21 22:22: Specimen Source Right radial, O2 % 4lpm, ABG pH 7.38, ABG pCO2 28.7 L, ABG pO2 77.6 L, ABG HCO3 16.5 L, ABG Total CO2 17.4 L, ABG O2 Saturation 95, ABG Base Excess -8.6 L, Jim Test Acceptable 11/08/21 22:22: Sodium 131 L, Potassium 5.0 D, Chloride 97 L, Carbon Dioxide 20 L, Anion Gap 19.0 H, BUN 47 H, Creatinine 3.30 H, Estimated Creat Clear 27, Estimated GFR 18 L*, Est GFR ( Amer) 22 L, Glucose 342 H D, Calcium 8.4, Total Bilirubin 0.8, AST 101 H D, ALT 48 D, Alkaline Phosphatase 162 H, Total Protein 6.9, Albumin 3.7, Globulin 3.2, Albumin/Globulin Ratio 1.2 11/08/21 22:22: WBC 7.6 D, RBC 4.29 L, Hgb 12.6 L, Hct 40.0 L, MCV 93.2, MCH 29.4, MCHC 31.6 L, RDW 14.0, Plt Count 121 L D, MPV 8.4, Neut % (Auto) 91.9 H, Lymph % (Auto) 6.2 L, Mcdowell % (Auto) 1.4 L, Eos % (Auto) 0.2, Baso % (Auto) 0.3, Neut # (Auto) 7.0, Lymph # (Auto) 0.5 L, Mcdowell # (Auto) 0.1, Eos # (Auto) 0.0, Baso # (Auto) 0.0, Total Counted 100, Neutrophils % (Manual) 82 H, Band Neutrophils % 12.0 H, Lymphocytes % (Manual) 4 L, Monocytes % (Manual) 2, Platelet Estimate Slight decrease, RBC Morphology Normal 11/08/21 22:22: NT-Pro-B Natriuret Pep 73296 H 11/08/21 22:22: Lactate 3.0 H 11/08/21 21:16: POC Glucose 372 H* 11/08/21 18:07: Troponin I 0.37 H My Orders Category Date Time Status Nasal Cannula 4.0 lpm Care 11/08/21 22:14 Active monitor technician [id number] Care 11/08/21 23:01 Active Rivera, Insert [Urinary Catheter, Insert] ONCE Care 11/08/21 22:11 Completed CXR --portable [XR chest portable] Stat Exams 11/08/21 22:14 Completed BNP [Brain Natriuretic Peptide] Stat Lab 11/08/21 22:22 Completed Complete Blood Count Auto Diff Stat Lab 11/08/21 22:22 Completed Comprehensive Metabolic Panel Stat Lab 11/08/21 22:22 Completed Lactic Acid Follow Up (RFLX 1) Stat Lab 11/09/21 02:45 Completed Lactic Acid Stat Lab 11/08/21 22:22 Completed 0.9 % Sodium Chloride [Sod Chlor 0.9% 1000mL Bag] 1,000 Med 11/08/21 22:30 Ordered ml IV 999 mls/hr Acetaminophen [Acetaminophen 650mg suppository] Med 11/08/21 22:15 Ordered 650 mg RC Q4HP PRN Ceftriaxone Sodium [Rocephin 1gm vial] 1 gm Med 11/08/21 22:45 Ordered 0.9 % Sodium Chloride [Sod Chlor 0.9% 50mL bag] 50 ml IV Q24H Blood Culture Stat Micro 11/08/21 22:34 Received ABG [Arterial Blood Gas] Stat RT 11/08/21 22:22 Completed EKG Request [ECG Request by /Nse] Stat Y 11/08/21 22:14 Ordered - Radiology Findings #1 Xray Reviewed: Chest Image Reviewed: Yes I reviewed the patient's radiology image ED XR Results: Normal/NAD - ECG Data Tracing #1 Attestation EKG: I reviewed this ECG and interpreted as documented below: Ischemic changes: non-specific ST-T wave changes Conduction abnormalities present: LAFB, RBBB EKG compared to prior tracings: there are no significant changes Rapid Response Exam - General General appearance: alert - Head Head exam: atraumatic - Eye Eye exam: Present: PERRL, EOMI. Absent: scleral icterus - ENT ENT exam: Present: mucous membranes dry - Neck Neck exam: Present: trachea midline - Respiratory Respiratory exam: Present: other (dec bs bilat ). Absent: respiratory
--- NOTE | 2021-11-09 06:30 | CA_ITS ---
APPROVED REPORT EXAM: Comprehensive 2D, Doppler, and color-flow Echocardiogram Senior Sql Dba: Balbina Rubio RT(R) Ht: 6 ft 0 in Wt: 222lbs BSA: 2.23 BP: 112/66 mmHg Indications: elevated troponin, IZZY, CAD, hyperlipidemia, DM, encephalopathy, weakness, dehydration, HG 2D Dimensions LVOT 2.51 cm (M/F) 1.5-2.5 M-Mode Dimensions RVDd 2.46 cm (0.9-2.6) LA Diam 4.00 cm (1.9-4.0) LVDd 6.18 cm (3.5-5.7) Ao Diam 3.49 cm (2.0-3.7) LVDs 4.87 cm (3.5-5.7) IVSd 0.80 cm (0.6-1.1) PWd 0.80 cm (0.6-1.1) EF (Teich) 42.30% FS 21.20% EDV (Teich) 192.60 mL ESV (Teich) 111.20 mL LV Diastology E Decel Time 167.00 (160-240 msec) E/A Ratio 1.41 MED E' 9.30 (< 7 cm/sec) E'/MED E' Ratio 9.44 (>14) LAT E' 11.60 (<10 cm/sec) E/LAT E' Ratio 7.57 (>14) Aortic Valve LVOT Max 96.00 (70-110 cm/s) LVOT VTI 18.32 cm AoV Peak Vadim. 216.00 (50-130 cm/s) AO Peak GR. 18.70 mmHg AO Mean GR. 11.40 (<5 mmHg) AO VTI 47.80 (18-25 cm) ANALY (VTI) 1.90 (2.5-4.5 cm2) Mitral Valve MV E Max Vadim. 88.00 (40-130 cm/s) MV A Velocity 62.00 (40-130 cm/s) E/A Ratio 1.41 MV Decel. Time 167.00 (160-240 ms) MV PHT 49.00 ms Tricuspid Valve TR P. Velocity 220.00 cm/s RAP Estimate 15.00 mmHg RVSP 34.40 mmHg Left Ventricle Technically difficult study, left atrium is mildly enlarged, left ventricle is normal size, mild concentric left ventricular hypertrophy, septum is sigmoid configuration visually estimated ejection fraction 50% with no obvious regional wall motion abnormality, diastolic parameters are inconclusive in the study. Right Ventricle Right atrium and right ventricle are mildly enlarged with normal contractility. Aortic Valve Aortic valve is thickened and calcified with restriction in the leaflet mobility, there is mild aortic insufficiency, degree of aortic stenosis is not calculated in the study, Doppler is suboptimal, repeat study for the aortic valve is recommended. Mitral Valve Mitral valve leaflets are minimally thickened, there is mild mitral regurgitation. Tricuspid Valve Tricuspid valve grossly normal, there is trace tricuspid regurgitation, tricuspid regurgitation jet velocity is inadequate for calculation of the right ventricular systolic pressure. Pulmonic Valve Pulmonic valve is poorly visualized. Great Vessels Aortic root is normal size. Inferior vena cava is poorly visualized. Pericardium No significant pericardial effusion noted. Conclusion 1. Biatrial enlargement, normal left ventricular size, mild concentric left ventricular hypertrophy, visually estimated ejection fraction 50% with no obvious regional wall motion abnormality, septum is sigmoid configuration. Diastolic parameters are inconclusive. 2. Mildly enlarged right ventricle with normal contractility. 3. Mild mitral and trace tricuspid regurgitation. 4. Abnormal aortic valve, degree of aortic stenosis is not calculated in the study, repeat study focused on aortic valve is recommended. There is mild aortic insufficiency. Aortic stenosis appears to be at least moderate in severity based on the morphology and the excursion of the leaflets. 5. No significant pericardial effusion noted. 6. Inferior vena cava is poorly visualized. Electronically signed by : Aj Berman MD 11/10/2021 09:26:17
--- NOTE | 2021-11-09 07:13 | HMH.CNCARD ---
History of Present Illness Consult date: 11/09/21 Requesting physician: Alfredo Fagan Chief complaint: Elevated troponins, CABG, Encephalopathy Additional Medical History:: 1. Hypertension A. Echocardiogram, 2018, EF greater than 60% with aortic sclerosis and mild aortic stenosis. 2. Hyperlipidemia A. Statin therapy 3. History of diabetes mellitus, treated for many years 4. History of prior CVA with no acute changes, CT of head, 07/2021 A. Brain MRI, 06/2019, 1. Small acute/subacute subcortical infarction in the left silverio radiata of the parietal lobe 2. Atrophy with chronic ischemic changes. 3. 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 Carotid artery stenosis, 05/2019, LICA <20%, TINO 20-49% 5. CAD A. History of coronary bypass grafting in 2012 with postop atrial fibrillation for which she was started on amiodarone therapy B. Elevated troponins in setting of acute renal insufficiency, 11/09/2021 6. Vomiting/diarrhea/dehydration, 10/2021 A. Acute renal insufficiency with creatinine up to 3.3 on 11/09/2021 7. Chronic abnormal EKG with right bundle branch block and left anterior fascicular block History of present illness: Patient is a 81-year-old male who lives alone presenting to the emergency department with chief complaint of weakness. States that he is felt weak a month. Patient had an episode of vomiting about 2 hours prior. He was able to eat breakfast this morning. He is denying diarrhea, chest pain, shortness of air, dysuria, abdominal pain. Patient states that he has not had a fall. Patient's daughter confirms that patient has been more confused recently, states that he seemed to go downhill. Patient's daughter states that he had the episode of vomiting yesterday, as well as she had a report of non-bloody diarrhea. Daughter states that he seems more confused than usual, notes that he had some fluctuating blood sugars, and that they have had difficulty having him take p.o. confirms that he has been with him since 3 PM yesterday he has had no repeated diarrhea or emesis and has been able to eat. Above note per ER intake. ER work-up revealed no acute findings on CT scan, metabolic work-up showed acute kidney injury and dehydration. Initial troponin level was borderline. Patient admitted to medicine service for IV fluids, neurologic checks, further diagnostic testing and evaluation for possible change in level of care from living independently at home. The above from Dr. Fagan H & P. Pt is aware he is in [facility] but is unable to give an answer for year or other orientation questions. States he feels bad all over but denies chest pain at this time. Per Records: CABG in 2013 with postop A. fib for which he was started on Amiodarone. 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 Old CVA noted Chronic RBBB and LAFB per old EKG's. PMH includes HTN, HLD and DM. [facility] History Medical History: Reports:: Cancer, Diabetes Mellitus Type 2, Gastroesophageal Reflux Disease(GERD), Hyperlipidemia, Hypertension, Palpitations, Transient Ischemic Attacks (TIA) *Have you ever received a pneumonia vaccine?: No *Have you received a flu vaccine this season?: No Other Medical History: Reports: Arthritis, Cataracts Laterality Cases: Bilateral: Arthroscopy Shoulder, Carpal Tunnel Release Other Surgeries: Yes: Cancer Surgery, Cardiac Catheterization, Cardiac Surgery, Colonoscopy Amputation: No Fractures: Yes (fractured ribs 25 years ago ) - *Social History Last grade of school completed: High school graduate Smoking Status: Light tobacco smoker Tobacco Type: smokeless tobacco Alcohol Intake: never Substance Use Type: denies use *Occupational Status:: retired Housing: house Household Members: none *Travel in the last 8 weeks: None Family Hx:: Heart Attack Meds Home Medications Medication Instructions Recorded Confirmed Type Clopidogrel Bisulfate [Plavix 75mg 75 mg PO DAILY 05/06/19 11/08/21 History Tab
--- NOTE | 2021-11-09 07:45 | CA_ITS ---
FINAL REPORT TECHNIQUE: Color Doppler, duplex Doppler and joshi scale sonography of the bilateral neck arterial vasculature was performed. Velocities were measured in the carotid arteries. Stenosis evaluation based on the validated velocity criteria. CLINICAL HISTORY: KRZYSZTOF,HX CVA,DM,HLD FINDINGS: The peak systolic velocity of the right common carotid artery is 56 cm/s. The peak systolic velocity of the right internal carotid artery is 71 cm/s and end diastolic velocity 19 cm/s. The ICA/CCA ratio is 0.92. A mild amount of plaque is present. The right external carotid artery is patent. The right vertebral artery is patent with antegrade flow. The peak systolic velocity of the left common carotid artery is 78 cm/s. The peak systolic velocity of the left internal carotid artery is 58 cm/s and end diastolic velocity 16 cm/s. The ICA/CCA ratio is 1.5. A mild amount of plaque is present. The left external carotid artery is patent.The left vertebral artery is patent with antegrade flow. IMPRESSION: Less than 50% bilateral carotid stenosis. Bilateral patent vertebral arteries with antegrade flow. Reviewed, Interpreted and Dictated by David Rosa III, MD Transcribed by Mendy Oviedo Authenticated by David Rosa III, MD on 11/09/2021 12:47:[address] [facility]
[2021-11-09 07:55] LABS: Basophils # 0.1 K/mm3 (0-0.2); Basophils % 0.3 % (0.1-2.0); Hematocrit 33.3 % (42.0-52.0); Lymphocytes # 0.6 K/mm3 (0.7-4.5); Lymphocytes % 2.8 % (10-50); Mean Corpuscular HGB Conc 32.4 g/dL (31.8-35.4); Mean Corpuscular Hemoglobin 29.9 pg (27.0-31.2); Mean Corpuscular Volume 92.3 fl (80-94); Mean Platelet Volume 9.3 fl (7.4-10.4); Monocytes # 0.7 K/mm3 (0.1-1.0); Monocytes % 3.1 % (1.7-9.3); Neutrophils # 21.2 K/mm3 (1.8-7.8); Neutrophils % 93.9 % (37.0-80.0); Platelet Count 91 K/mm3 (142-424); Red Cell Distribution Width 14.2 % (11.5-17.5); White Blood Count 22.6 K/mm3 (4.8-10.8)
[2021-11-09 08:00] VITALS: BP 115/63; PULSE 83; PULSE 86; RESP 22; TEMP 36.7; O2SAT 98
[2021-11-09 08:01] LABS: Alanine Aminotransferase 38 U/L (12-78); Albumin Level 2.8 g/dl (3.5-5.0); Alkaline Phosphatase 111 U/L (38-126); Anion Gap 14.3 mEq/L (5-15); Aspartate Amino Transferase 91 U/L (17-59); Bilirubin,Total 0.6 mg/dl (0.2-1.3); Blood Urea Nitrogen 50 mg/dl (9-20); Carbon Dioxide 20 mmol/L (22.0-30.0); Chloride 100 mmol/L (98-107); Creatinine Clearance Estimated 24 mL/min (50-200); Estimated Glomerular Filt Rate 16 ml/min (>60); GFR (African American) 20 ML/MIN (>60); Globulin 2.9 g/dL (1.3-3.2); Glucose 219 mg/dl (74-100); Phosphorous 3.5 mg/dl (2.5-4.5); Potassium 4.3 mmoL/L (3.5-5.1); Sodium 130 mmol/L (136-145); Total Protein,Serum 5.7 g/dl (6.3-8.2)
[2021-11-09 08:10] LABS: MANUAL DIFFERENTIAL MANUAL DIFFERENTIAL (MANUAL DIFF)
[2021-11-09 08:11] LABS: Hemoglobin 10.9 g/dL (14.1-18.0)
--- NOTE | 2021-11-09 08:39 | HMH.ACPN2 ---
Internal Medicine - PN: Subj *Date: 11/09/21 *Time: 08:40 Interval history: Events of yesterday noted. Patient developed fever, some distress. Appreciate input from on-call physician. Ceftriaxone started. Labs reviewed this morning. Long discussion with daughter at bedside. Exam Vital signs and Labs for Last 24 Hours: Temp Pulse Resp BP Pulse Ox 98.7 F 83 20 94/51 L 96 11/09/21 04:00 11/09/21 08:00 11/09/21 04:00 11/09/21 04:00 11/09/21 04:00 Laboratory Results - last 24 hr 11/08/21 08:35: SARS-CoV-2 (PCR) Not detected, Influenza A Untype (PCR) Not detected, Influenza Type B (PCR) Not detected 11/08/21 08:40: WBC 5.9, RBC 4.17 L, Hgb 12.2 L, Hct 37.7 L, MCV 90.4, MCH 29.3, MCHC 32.4, RDW 14.0, Plt Count 196, MPV 8.0, Neut % (Auto) 95.5 H, Lymph % (Auto) 2.4 L, [place] % (Auto) 1.4 L, Eos % (Auto) 0.4, Baso % (Auto) 0.3, Neut # (Auto) 5.7, Lymph # (Auto) 0.1 L, [place] # (Auto) 0.1, Eos # (Auto) 0.0, Baso # (Auto) 0.0, Total Counted 100, Neutrophils % (Manual) 93 H, Band Neutrophils % 3.0, Lymphocytes % (Manual) 3 L, Monocytes % (Manual) 1 L, Nucleated RBCs 1, Platelet Estimate Normal, RBC Morphology Normal 11/08/21 08:40: Sodium 132 L, Potassium 3.6, Chloride 100, Carbon Dioxide 19 L, Anion Gap 16.6 H, BUN 39 H, Creatinine 2.80 H, Estimated Creat Clear 27, Estimated GFR 22 L, Est GFR ( Amer) 27 L, Glucose 136 H, Calcium 8.6, Total Bilirubin 0.7, AST 43, ALT 24, Alkaline Phosphatase 133 H, Troponin I 0.09 H, Total Protein 6.4, Albumin 3.4 L, Globulin 3.0, Albumin/Globulin Ratio 1.1 11/08/21 08:40: Magnesium 1.4 L 11/08/21 10:43: Urine Color Yellow, Urine Appearance Cloudy, Urine pH 5.0, Ur Specific [place] 1.025, Urine Protein 1+, Urine Glucose (UA) 1+, Urine Ketones Trace, Urine Blood 3+, Urine Nitrate Negative, Urine Bilirubin 1+ A, Urine Urobilinogen 0.2, Ur Leukocyte Esterase 2+ A, Urine RBC 20-50, Urine WBC 20-50, Ur Squamous Epith Cells 3-5, Amorphous Sediment 1+, Urine Bacteria Trace 11/08/21 11:38: Troponin I 0.26 H 11/08/21 14:35: PT 12.0, INR 1.07 11/08/21 14:35: Troponin I 0.42 H 11/08/21 18:07: Troponin I 0.37 H 11/08/21 21:16: POC Glucose 372 H* 11/08/21 22:22: Lactate 3.0 H 11/08/21 22:22: NT-Pro-B Natriuret Pep 02007 H 11/08/21 22:22: WBC 7.6 D, RBC 4.29 L, Hgb 12.6 L, Hct 40.0 L, MCV 93.2, MCH 29.4, MCHC 31.6 L, RDW 14.0, Plt Count 121 L D, MPV 8.4, Neut % (Auto) 91.9 H, Lymph % (Auto) 6.2 L, [place] % (Auto) 1.4 L, Eos % (Auto) 0.2, Baso % (Auto) 0.3, Neut # (Auto) 7.0, Lymph # (Auto) 0.5 L, [place] # (Auto) 0.1, Eos # (Auto) 0.0, Baso # (Auto) 0.0, Total Counted 100, Neutrophils % (Manual) 82 H, Band Neutrophils % 12.0 H, Lymphocytes % (Manual) 4 L, Monocytes % (Manual) 2, Platelet Estimate Slight decrease, RBC Morphology Normal 11/08/21 22:22: Sodium 131 L, Potassium 5.0 D, Chloride 97 L, Carbon Dioxide 20 L, Anion Gap 19.0 H, BUN 47 H, Creatinine 3.30 H, Estimated Creat Clear 27, Estimated GFR 18 L*, Est GFR ( Amer) 22 L, Glucose 342 H D, Calcium 8.4, Total Bilirubin 0.8, AST 101 H D, ALT 48 D, Alkaline Phosphatase 162 H, Total Protein 6.9, Albumin 3.7, Globulin 3.2, Albumin/Globulin Ratio 1.2 11/08/21 22:22: Specimen Source Right radial, O2 % 4lpm, ABG pH 7.38, ABG pCO2 28.7 L, ABG pO2 77.6 L, ABG HCO3 16.5 L, ABG Total CO2 17.4 L, ABG O2 Saturation 95, ABG Base Excess -8.6 L, Jim Test Acceptable 11/09/21 02:45: Lactate 1.7 11/09/21 06:52: WBC 22.6 H* D, RBC 3.60 L, Hgb 10.9 L D, Hct 33.3 L, MCV 92.3, MCH 29.9, MCHC 32.4, RDW 14.2, Plt Count 91 L, MPV 9.3, Neut % (Auto) 93.9 H, Lymph % (Auto) 2.8 L, [place] % (Auto) 3.1, Eos % (Auto) 0.0 L, Baso % (Auto) 0.3, Neut # (Auto) 21.2 H, Lymph # (Auto) 0.6 L, [place] # (Auto) 0.7, Eos # (Auto) 0.0, Baso # (Auto) 0.1 11/09/21 06:52: Sodium 130 L, Potassium 4.3, Chloride 100, Carbon Dioxide 20 L, Anion Gap 14.3, BUN 50 H, Creatinine 3.60 H, Estimated Creat Clear 24, Estimated GFR 16 L*, Est GFR ( Amer) 20 L, Glucose 219 H D, Calcium 8.0 L, Phosphorus 3.5, Total Bi
[2021-11-09 09:17] LABS: Lymphocytes % 5 % (10-50); Monocytes % 2 % (2-9); Neutrophils % 84 % (42-76); Platelet Estimate Slight Decrease; Total Cells Counted 100
[2021-11-09 09:18] LABS: RBC Morphology Normal
--- NOTE | 2021-11-09 10:01 | HMH.OTEV ---
OT Inpatient Evaluation Rehab OT IP Evaluation Start: 11/08/21 21:46 Freq: ONCE Status: Complete Protocol: Document 11/09/21 09:52 PARKER (Rec: 11/09/21 10:01 [id number] Rehab OT IP Assessment Subjective History Pt oriented x 3 on arrival. Pt agreeable to engage in therapy evaluation. Pt was admtited via ED on 11/08/21 due to confusion and weakness. The following information was copied from PCP's history and physical report: Patient is a 81-year-old male who lives alone presenting to the emergency department with chief complaint of weakness. States that he is felt weak a month. Patient had an episode of vomiting about 2 hours prior. He was able to eat breakfast this morning. He is denying diarrhea, chest pain, shortness of air, dysuria, abdominal pain. Patient states that he has not had a fall. Patient's daughter confirms that patient has been more confused recently, states that he seemed to go downhill. Patient's daughter states that he had the episode of vomiting yesterday, as well as she had a report of nonbloody diarrhea. Daughter states that he seems more confused than usual, notes that he had some fluctuating blood sugars, and that they have had difficulty having him take p.o . confirms that he has been with him since 3 PM yesterday he has had no repeated diarrhea or emesis and has been able to eat. Above note per ER intake. ER work-up revealed no acute findings on CT scan, metabolic work-up showed acute kidney injury and dehydration. Initial troponin level was
[2021-11-09 10:11] VITALS: BMI 30.7
--- NOTE | 2021-11-09 10:18 | HMH.PTEV ---
Physical Therapy Evaluation Rehab PT IP Evaluation Start: 11/08/21 21:46 Freq: ONCE Status: Active Protocol: Document 11/09/21 10:13 PHORNE (Rec: 11/09/21 10:18 PHORNE [id number]) Subjective/History History History 81 yowm adm to [facility] with UTI, IZZY, and encephalopathy. He reports he lives alone with no steps to enter the home and was independent with all mobility prior to adm. Subjective Subjective He reports feeling weak and stiff this morning. Rehab PT IP Eval Objective Appearance Patient Behavior Appropriate Patient Orientation Person,Place,Time Difficulty following instructions none Speech Pattern Clear Ambulation Patient Able to Ambulate No Balance Ability to Arise Able, uses arms to help Sitting Balance Steady, safe Standing Balance Steady, wide stance Dynamic Sitting Balance Ability Fair Dynamic Standing Balance Ability Fair Transfers Bed Transfer Ability Minimal x 1 (25% assist) Chair Transfer Ability Moderate x 1 (50% assist) Sit to Stand Bed Transfer Ability Moderate x 1 (50% assist) Sit to Stand Chair Transfer Ability Moderate x 1 (50% assist) ROM RUE PT ROM Status ABN Abnormal ROM Comment moderately limited at [facility] LUE PT ROM Status ABN Abnormal ROM Comment severely limited at [facility] Rehab PT IP prob,goals,plan Problems Date of Evaluation: 11/09/21 PT IP Problems Bed Mobility,Transfers,Gait Rehab Potential Rehab Potential Good Plan PT Intervention Plan Bed Mobility,Transfers,Gait, Self care,Therapeutic Exercise PT Plan Frequency BID Duration LOS Discharge Goals Bed Transfer Ability Minimal x 1 (25% assist) Sit to Stand Chair Transfer Ability Minimal x 1 (25% assist) Ambulation Assistive Device Rolling Walker Ambulation Distance (feet) 10 Discharge Plan PT Discharge Plan Pt is currently most appropriate for rehab placement once medically stable. If he returns home without assitance he will be at greatly increased risk for serious injury. G -code Required No Eval Complexity Eval Charge Codes 74400 - High Complexity PHYSICIAN CERTIFICATION: I certify the specified therapy services for Orestes
[2021-11-09 11:22] LABS: POC Glucose,Bedside 435 (70-110)
[2021-11-09 11:22] LABS: POC Glucose,Bedside 226 (70-110)
[2021-11-09 11:22] LABS: POC Glucose,Bedside 314 (70-110)
--- NOTE | 2021-11-09 14:58 | PC.NURSE ---
reported positive blood cultures to
[2021-11-09 16:00] VITALS: BP 109/67; PULSE 75; RESP 20; TEMP 36.8; O2SAT 99
--- NOTE | 2021-11-09 16:43 | PC.NURSE ---
has done well this shift. elevated blood sugars and md was notified. vitals have been stable. requires two assist. eatting okay. rings out as needed. has been thirsty this shift.
[2021-11-09 20:00] VITALS: BP 129/94; PULSE 100; PULSE 90; RESP 28; TEMP 36.9; O2SAT 95; O2SAT 98
[2021-11-09 21:27] LABS: POC Glucose,Bedside 360 (70-110)
[2021-11-10] VITALS (13 sets, daily range): BP systolic 110–141; BP diastolic 61–72; PULSE 70–130; RESP 16–33; TEMP 36.6–36.9; O2SAT 92–98
[2021-11-10 06:07] LABS: POC Glucose,Bedside 404 (70-110)
[2021-11-10 06:07] LABS: POC Glucose,Bedside 430 (70-110)
--- NOTE | 2021-11-10 06:34 | PC.NURSE ---
NURSE NOTIFIED OF PTS ELEVATED HEART RATE ON THE MONITOR.
--- NOTE | 2021-11-10 06:41 | HMH.ACPN2 ---
Internal Medicine - PN: Subj *Date: 11/10/21 *Time: 17:39 Interval history: Overnight patient required initiation of some higher levels of oxygen, up to 4 L. Early this morning flipped into A. fib with RVR. Has been treated this morning with a dose of diltiazem and started on a drip. About an hour after receiving initial dose, has converted back to sinus rhythm. Overall feels well this morning. Alert and oriented. Daughter at bedside. Afebrile. Hemodynamically stable. Making good urine. Cultures returned showing E. coli. No Nausea or diarrhea. Does complain or abdominal pain on exam. Exam Vital signs and Labs for Last 24 Hours: Temp Pulse Resp BP Pulse Ox 98.4 F 85 26 H 116/69 98 11/10/21 04:00 11/10/21 04:00 11/10/21 04:00 11/10/21 04:00 11/10/21 04:00 Laboratory Results - last 24 hr 11/08/21 10:43: Urine Color Yellow, Urine Appearance Cloudy, Urine pH 5.0, Ur Specific [place] 1.025, Urine Protein 1+, Urine Glucose (UA) 1+, Urine Ketones Trace, Urine Blood 3+, Urine Nitrate Negative, Urine Bilirubin 1+ A, Urine Urobilinogen 0.2, Ur Leukocyte Esterase 2+ A, Urine RBC 20-50, Urine WBC 20-50, Ur Squamous Epith Cells 3-5, Amorphous Sediment 1+, Urine Bacteria Trace 11/08/21 18:10: POC Glucose 435 H* 11/08/21 22:37: POC Glucose 314 H* 11/09/21 04:05: POC Glucose 226 H 11/09/21 06:52: WBC 22.6 H* D, RBC 3.60 L, Hgb 10.9 L D, Hct 33.3 L, MCV 92.3, MCH 29.9, MCHC 32.4, RDW 14.2, Plt Count 91 L, MPV 9.3, Neut % (Auto) 93.9 H, Lymph % (Auto) 2.8 L, [place] % (Auto) 3.1, Eos % (Auto) 0.0 L, Baso % (Auto) 0.3, Neut # (Auto) 21.2 H, Lymph # (Auto) 0.6 L, [place] # (Auto) 0.7, Eos # (Auto) 0.0, Baso # (Auto) 0.1, Total Counted 100, Neutrophils % (Manual) 84 H, Band Neutrophils % 9.0 H, Lymphocytes % (Manual) 5 L, Monocytes % (Manual) 2, Platelet Estimate Slight decrease, RBC Morphology Normal 11/09/21 06:52: Sodium 130 L, Potassium 4.3, Chloride 100, Carbon Dioxide 20 L, Anion Gap 14.3, BUN 50 H, Creatinine 3.60 H, Estimated Creat Clear 24, Estimated GFR 16 L*, Est GFR ( Amer) 20 L, Glucose 219 H D, Calcium 8.0 L, Phosphorus 3.5, Total Bilirubin 0.6, AST 91 H, ALT 38, Alkaline Phosphatase 111, Total Protein 5.7 L, Albumin 2.8 L D, Globulin 2.9, Albumin/Globulin Ratio 1.0 L 11/09/21 12:01: POC Glucose 404 H* 11/09/21 15:18: POC Glucose 430 H* 11/09/21 21:09: POC Glucose 360 H* I & O for Last 24 hours: Intake & Output 11/07/21 11/08/21 11/09/21 11/10/21 23:59 23:59 23:59 23:59 Intake Total 480 / 480 420 / 480 60 / 60 Output Total 400 / 400 450 / 450 Balance 480 / 480 -390 / -390 Weight 103.419 kg 103 kg Microbiology Reports for the Last 24 Hours: Microbiology 11/08/21 22:34 Blood Blood Culture - Preliminary 11/08/21 22:34 Blood Blood Culture - Preliminary 11/08/21 10:43 Urine,Clean Catch Urine Culture - Preliminary Gram Negative Rods - Constitutional no acute distress, obese - *Routine HEENT Exam Head: Present: normocephalic Eye: Present: EOMI, PERRL ENT: Present: mucous membranes moist - *Routine Neck Exam Present: supple. Absent: lymphadenopathy - Routine Chest/Breast/Axilla Exam Comments: Well-healed midline scar from prior sternotomy - *Routine Respiratory Exam Present: CTA bilaterally - *Routine Cardiovascular Exam Present: RRR, murmur - *Routine Abdominal Exam Present: soft, normoactive bowel sounds, tenderness (Diffuse tenderness, worse with palpation and right hemiabdomen. No rebound or peritonitis) - *Routine Extremities Exam Absent: cyanosis, clubbing, edema - *Routine Skin Exam Present: warm. Absent: rash - *Routine Neurological Exam Present: alert, oriented X3 Assessment and Plan (1) Severe sepsis with acute organ dysfunction Status: Acute Category: Medical Code(s): A41.9 - Sepsis, unspecified organism; R65.20 - Severe sepsis without septic shock (2) E coli bacteremia Status: Acute Category: Medi
--- NOTE | 2021-11-10 06:42 | ECG_ITS ---
APPROVED REPORT Exam: Resting ECG HR:135 bpm ECG Measurements Heart Rate 135 AXES QRSd 161 QRS -73 QT 346 T 31 QTc 425 Conclusion ATRIAL FIBRILLATION WITH RAPID VENTRICULAR RESPONSE RIGHT BUNDLE BRANCH BLOCK [120+ ms QRS DURATION, UPRIGHT V1, 40+ ms S IN I/aVL/V4/V5/V6] LEFT ANTERIOR FASCICULAR BLOCK [QRS AXIS <= -45, QR IN I, RS IN II] ABNORMAL ECG UNCONFIRMED REPORT Electronically signed by : Alfredo Fagan MD 11/10/2021 16:47:01
[2021-11-10 07:22] LABS: Alanine Aminotransferase 31 U/L (12-78); Albumin Level 2.7 g/dl (3.5-5.0); Albumin/Globulin Ratio 0.9 (1.1-1.8); Alkaline Phosphatase 132 U/L (38-126); Anion Gap 15.1 mEq/L (5-15); Aspartate Amino Transferase 51 U/L (17-59); Bilirubin,Total 0.4 mg/dl (0.2-1.3); Blood Urea Nitrogen 68 mg/dl (9-20); Calcium 7.7 mg/dl (8.4-10.2); Carbon Dioxide 17 mmol/L (22.0-30.0); Chloride 100 mmol/L (98-107); Creatinine Clearance Estimated 22 mL/min (50-200); Estimated Glomerular Filt Rate 15 ml/min (>60); GFR (African American) 18 ML/MIN (>60); Globulin 2.9 g/dL (1.3-3.2); Glucose 262 mg/dl (74-100); Potassium 4.1 mmoL/L (3.5-5.1); Sodium 128 mmol/L (136-145); Total Protein,Serum 5.6 g/dl (6.3-8.2)
[2021-11-10 07:23] LABS: Magnesium 1.6 mg/dl (1.6-2.3)
[2021-11-10 07:32] LABS: Basophils % 0.3 % (0.1-2.0); Eosinophils % 0.1 % (0.1-12.0); Hematocrit 36.7 % (42.0-52.0); Hemoglobin 11.6 g/dL (14.1-18.0); Lymphocytes # 0.4 K/mm3 (0.7-4.5); Lymphocytes % 2.9 % (10-50); Mean Corpuscular HGB Conc 31.6 g/dL (31.8-35.4); Mean Corpuscular Hemoglobin 29.5 pg (27.0-31.2); Mean Corpuscular Volume 93.5 fl (80-94); Mean Platelet Volume 11.9 fl (7.4-10.4); Monocytes # 0.4 K/mm3 (0.1-1.0); Monocytes % 3.2 % (1.7-9.3); Neutrophils % 93.5 % (37.0-80.0); Red Blood Count 3.93 M/mm3 (4.60-6.20); Red Cell Distribution Width 14.2 % (11.5-17.5)
[2021-11-10 07:36] LABS: Platelet Count 59 K/mm3 (142-424)
[2021-11-10 07:38] LABS: MANUAL DIFFERENTIAL MANUAL DIFFERENTIAL (MANUAL DIFF)
--- NOTE | 2021-11-10 07:42 | PC.NURSE ---
DR. COL[place]O ORDERED PATIENT TO HAVE LOVENOX 1MG/KG BID. CONSULTED PHARMACY - [facility] STATED MEDICATION IS CONTRAINDICATED DUE TO PLT COUT 91.
--- NOTE | 2021-11-10 07:47 | PC.NURSE ---
0725:TITRATED CARDIZEM GTT TO 15ML/HR. HR:133
--- NOTE | 2021-11-10 07:47 | PC.NURSE ---
DAUGHTER AT BEDSIDE ASSISTING WITH BREAKFAST.
[2021-11-10 07:52] LABS: POC Glucose,Bedside 280 (70-110)
--- NOTE | 2021-11-10 08:39 | PC.NURSE ---
0837 - Noted on tely that pt had converted to NSR from A-Fib. Pt resting comfortably in bed. RAJIV Shepherd @ bedside during this time. Rate currently in the 90's. RT called for stat EKG to confirm rhythm change.
--- NOTE | 2021-11-10 08:42 | PC.NURSE ---
0630 steward/stewardess tourist class called stating pt hr up to 130/140, pt was lying in bed in no acute distress, ekg obtained that showed afib w/rvr reviewed by the emergency room physician, v/ss 128/74, o2 at 4l pnc, dr. fox called who is land acquisition analyst physician and given information regarding pt status as documented, orders recieved to start cardizem with 10mg bolus and 5mg /hr continuous infusion, lovenox 1mg/kg bid. orders faxed to pharmacy, and pt was transported to stepdown ICU bed, pt transported in bed in stable condition, report given to cindy patino, pt daughter edwin called and given update status and transfer.
--- NOTE | 2021-11-10 08:43 | ECG_ITS ---
APPROVED REPORT Exam: Resting ECG HR:92 bpm ECG Measurements Heart Rate 92 AXES MA 171 P 38 QRSd 170 QRS -64 QT 397 T 26 QTc 447 Conclusion SINUS RHYTHM RIGHT BUNDLE BRANCH BLOCK [120+ ms QRS DURATION, UPRIGHT V1, 40+ ms S IN I/aVL/V4/V5/V6] LEFT ANTERIOR FASCICULAR BLOCK [QRS AXIS <= -45, QR IN I, RS IN II] ABNORMAL ECG UNCONFIRMED REPORT Electronically signed by : Alfredo Fagan MD 11/10/2021 16:46:43
[2021-11-10 09:00] LABS: Lymphocytes % 4 % (10-50); Neutrophils % 89 % (42-76); Platelet Estimate Marked Decrease; Total Cells Counted 100
[2021-11-10 09:01] LABS: RBC Morphology Normal
--- NOTE | 2021-11-10 09:15 | HMH.PNCARD ---
Subjective Date: 11/10/21 Time: 09:15 Principal diagnosis: UTI, IZZY, CAD, PAF Interval history: 81 yo WM in bed in NAD. No chest pains. A. fib overnight that has converted to NSR this AM. Plt's have continued decline. Renal function still elevated. Echo report: 1. Biatrial enlargement, normal left ventricular size, mild concentric left ventricular hypertrophy, visually estimated ejection fraction 50% with no obvious regional wall motion abnormality, septum is sigmoid configuration. Diastolic parameters are inconclusive. 2. Mildly enlarged right ventricle with normal contractility. 3. Mild mitral and trace tricuspid regurgitation. 4. Abnormal aortic valve, degree of aortic stenosis is not calculated in the study, repeat study focused on aortic valve is recommended. There is mild aortic insufficiency. Aortic stenosis appears to be at least moderate in severity based on the morphology and the excursion of the leaflets. 5. No significant pericardial effusion noted. 6. Inferior vena cava is poorly visualized. Electronically signed by : Aj Berman MD 11/10/2021 09:26:17 Exam Vital signs and Labs for Last 24 Hours: Temp Pulse Resp BP Pulse Ox 98.4 F 85 26 H 116/69 98 11/10/21 04:00 11/10/21 04:00 11/10/21 04:00 11/10/21 04:00 11/10/21 04:00 Laboratory Results - last 24 hr 11/08/21 18:10: POC Glucose 435 H* 11/08/21 22:37: POC Glucose 314 H* 11/09/21 04:05: POC Glucose 226 H 11/09/21 06:52: Total Counted 100, Neutrophils % (Manual) 84 H, Band Neutrophils % 9.0 H, Lymphocytes % (Manual) 5 L, Monocytes % (Manual) 2, Platelet Estimate Slight decrease, RBC Morphology Normal 11/09/21 12:01: POC Glucose 404 H* 11/09/21 15:18: POC Glucose 430 H* 11/09/21 21:09: POC Glucose 360 H* 11/10/21 06:25: WBC 14.0 H D, RBC 3.93 L, Hgb 11.6 L, Hct 36.7 L, MCV 93.5, MCH 29.5, MCHC 31.6 L, RDW 14.2, Plt Count 59 L D, MPV 11.9 H, Neut % (Auto) 93.5 H, Lymph % (Auto) 2.9 L, [place] % (Auto) 3.2, Eos % (Auto) 0.1, Baso % (Auto) 0.3, Neut # (Auto) 13.0 H, Lymph # (Auto) 0.4 L, [place] # (Auto) 0.4, Eos # (Auto) 0.0, Baso # (Auto) 0.0, Total Counted 100, Neutrophils % (Manual) 89 H, Band Neutrophils % 7.0, Lymphocytes % (Manual) 4 L, Platelet Estimate Marked decrease, RBC Morphology Normal 11/10/21 06:25: Sodium 128 L, Potassium 4.1, Chloride 100, Carbon Dioxide 17 L, Anion Gap 15.1 H, BUN 68 H D, Creatinine 3.90 H, Estimated Creat Clear 22, Estimated GFR 15 L*, Est GFR ( Amer) 18 L*, Glucose 262 H, Calcium 7.7 L, Total Bilirubin 0.4, AST 51 D, ALT 31, Alkaline Phosphatase 132 H, Total Protein 5.6 L, Albumin 2.7 L, Globulin 2.9, Albumin/Globulin Ratio 0.9 L 11/10/21 06:25: Magnesium 1.6 D 11/10/21 06:40: POC Glucose 280 H I & O for Last 24 hours: Intake & Output 11/07/21 11/08/21 11/09/21 11/10/21 11:59 11:59 11:59 11:59 Intake Total 480 / 480 480 / 480 Output Total 400 / 400 450 / 450 Balance 80 / 80 30 / 30 Weight 200 lb 227 lb 1.218 oz Microbiology Reports for the Last 24 Hours: Microbiology 11/08/21 10:43 Urine,Clean Catch Urine Culture - Final Escherichia coli 11/08/21 22:34 Blood Blood Culture - Preliminary 11/08/21 22:34 Blood Blood Culture - Preliminary - Constitutional no acute distress - *Routine Respiratory Exam Present: CTA bilaterally, diminished air movement - *Routine Cardiovascular Exam Present: RRR, murmur - *Routine Extremities Exam Absent: cyanosis, clubbing, edema - *Routine Neurological Exam Present: alert, oriented X3 Progress Note: A&P (1) UTI (urinary tract infection) Status: Acute (2) CAD (coronary artery disease) Status: Acute (3) Elevated troponin Status: Acute (4) Abnormal EKG Status: Acute (5) History of CVA (cerebrovascular accident) Status: Acute (6) IZZY (acute kidney injury) Status: Acute (7) Encephalopathy acute Status: Acute (8) History of recurrent TIAs Status:
--- NOTE | 2021-11-10 09:17 | CT_ITS ---
FINAL REPORT CLINICAL HISTORY: abdominal pain, sepsis FINDINGS: Axial CT images of the abdomen and pelvis were obtained without intravenous contrast. Coronal reformatted images were also obtained.This study was performed with techniques to keep radiation doses as low as reasonably achievable (ALARA). Individualized dose reduction techniques using automated exposure control or adjustment of mA and/or kV according to the patient's size were employed. Abdomen: There are small bilateral pleural effusions. There is mild bibasilar atelectasis. There is no evidence of renal stone or hydronephrosis. The gallbladder is present. The liver, spleen and pancreas have an unremarkable, unenhanced appearance. There are bilateral adrenal nodules that are nonspecific and favor adenomas. No inflammatory process is identified. Anasarca is present. There is diffuse vascular calcification. Pelvis: Images of the pelvis reveal no evidence of ureteral dilation or ureteral stone.No mass or abnormal fluid collection is identified. There is urinary bladder wall thickening. A Rivera catheter is seen in the bladder. There is air in the bladder which is likely iatrogenic. There are small bilateral inguinal hernias containing fat. The appendix is not identified. IMPRESSION: Anasarca. Urinary bladder wall thickening. Small bilateral pleural effusions. Reviewed, Interpreted and Dictated by David Rosa III, MD Transcribed by Donald Casper Authenticated by David Rosa III, MD on 11/10/2021 01:18:00 PM [facility]
--- NOTE | 2021-11-10 09:52 | CA_ITS ---
APPROVED REPORT EXAM: Limited 2D Echocardiogram [employer]or: Monalisa Rogers RVT Ht: 6 ft 0 in Wt: 227lbs BSA: 2.25 BP: 110/58 mmHg Indications: REPEAT AO DOPPLERS 2D Dimensions LVOT 2.61 cm (M/F) 1.5-2.5 M-Mode Dimensions LA Diam 4.44 cm (1.9-4.0) Ao Diam 3.55 cm (2.0-3.7) Aortic Valve LVOT Max 105.00 (70-110 cm/s) LVOT VTI 21.71 cm AoV Peak Vadim. 224.00 (50-130 cm/s) AO Peak GR. 20.30 mmHg AO Mean GR. 13.20 (<5 mmHg) AO VTI 45.56 (18-25 cm) AANLY (VTI) 2.55 (2.5-4.5 cm2) Conclusion 1. Limited echocardiogram for the aortic valve was obtained, the aortic valve is thickened and calcified with restriction to leaflet mobility, the mean gradient across valve is 15 mmHg, valve area is 1.5 cm represents mild aortic stenosis. 2. There is mild aortic insufficiency present. Electronically signed by : Aj Berman MD 11/10/2021 14:37:06
--- NOTE | 2021-11-10 10:28 | PC.NURSE ---
Otf gtt off @ 1010 per RAJIV Shepherd
[2021-11-10 11:46] LABS: POC Glucose,Bedside 337 (70-110)
--- NOTE | 2021-11-10 12:08 | PC.NURSE ---
Pt down for CT abdomen @ this time
--- NOTE | 2021-11-10 14:28 | PC.NURSE ---
Addendum entered by Kay Del Rosario RN 11/10/21 16:45: 1530 - While resting noted that pt would desat to high 80's. Pt placed back on 2 L O2 per nasal cannula. Original Note: Pt resting in bed, family remains @ bedside. O2 weaned this shift, room air sat = 93-94%. Wheezes noted on L throughout upon auscultation. Tolerating well. HR regular, rate 70-80's. Abdomen soft, round, tender upon palpation, BS active in all quads. Rivera cath to drain @ bedsie w/ clear yellow urine noted. No BM this shift, is passing flatus. Skin intact. Scat bruising. Pt did work w/ PT and OT this shift but did not want to get up to chair. Turned Q2H, total dependent on staff for bed mobility. Pt did eat 75% of lunch, requires staff to feed him. No complaints voiced. Bed safety in place. Call alonso w/in reach.
[2021-11-10 15:56] LABS: POC Glucose,Bedside 376 (70-110)
[2021-11-10 18:29] LABS: Anion Gap 12.9 mEq/L (5-15); Blood Urea Nitrogen 69 mg/dl (9-20); Calcium 7.7 mg/dl (8.4-10.2); Carbon Dioxide 18 mmol/L (22.0-30.0); Chloride 99 mmol/L (98-107); Creatinine Clearance Estimated 22 mL/min (50-200); Estimated Glomerular Filt Rate 15 ml/min (>60); Potassium 3.9 mmoL/L (3.5-5.1); Sodium 126 mmol/L (136-145)
[2021-11-10 18:50] LABS: GFR (African American) 18 ML/MIN (>60); Glucose 354 mg/dl (74-100)
[2021-11-10 21:16] LABS: POC Glucose,Bedside 341 (70-110)
[2021-11-11] VITALS (12 sets, daily range): BP systolic 114–134; BP diastolic 57–77; PULSE 70–99; RESP 18–24; TEMP 36.6–37.1; O2SAT 91–97; BMI 31.1
--- NOTE | 2021-11-11 04:40 | PC.NURSE ---
PATIENT HAS RESTED WELL THIS SHIFT. HE WAS GIVEN A TOTAL BATH, SHAVE, ORAL CARE AND LINEN CHANGE THIS SHIFT. F/C PATENT AND DRAINING CLEAR, YELLOW URINE. LUNG SOUNDS CONTINUE TO BE DIMINISHED IN BILATERAL ANTERIOR BASES AND HAVE CRACKLES IN THEIR POSTERIOR LOWER BASES. OCCASIONAL WHEEZE NOTED POSTERIORLY. PATIENT HAS BEEN ENCOURAGED TO TURN AND REPOSITION IN BED. PATIENT HAS ALLOWED MARIA DEL CARMEN, SRNA AND MYSELF TO ASSIST WITH TURNING. VSS. NO ACUTE DISTRESS NOTED. WILL CONTINUE TO MONITOR.
--- NOTE | 2021-11-11 05:38 | PC.NURSE ---
LAB AT BEDSIDE FOR MORNING LAB DRAW.
[2021-11-11 05:39] LABS: Basophils % 0.1 % (0.1-2.0); Hematocrit 35.1 % (42.0-52.0); Lymphocytes # 0.5 K/mm3 (0.7-4.5); Monocytes # 0.4 K/mm3 (0.1-1.0); Red Cell Distribution Width 14.2 % (11.5-17.5)
[2021-11-11 05:54] LABS: Eosinophils % 0.1 % (0.1-12.0); Hemoglobin 11.1 g/dL (14.1-18.0); Lymphocytes % 4.7 % (10-50); Mean Corpuscular HGB Conc 31.8 g/dL (31.8-35.4); Mean Corpuscular Hemoglobin 29.7 pg (27.0-31.2); Mean Corpuscular Volume 93.5 fl (80-94); Mean Platelet Volume 11.2 fl (7.4-10.4); Monocytes % 3.6 % (1.7-9.3); Neutrophils # 9.6 K/mm3 (1.8-7.8); Neutrophils % 91.5 % (37.0-80.0); Red Blood Count 3.75 M/mm3 (4.60-6.20); White Blood Count 10.5 K/mm3 (4.8-10.8)
[2021-11-11 05:55] LABS: Platelet Count 42 K/mm3 (142-424)
[2021-11-11 05:56] LABS: MANUAL DIFFERENTIAL MANUAL DIFFERENTIAL (MANUAL DIFF)
[2021-11-11 05:57] LABS: Alanine Aminotransferase 34 U/L (12-78); Albumin Level 2.4 g/dl (3.5-5.0); Albumin/Globulin Ratio 0.9 (1.1-1.8); Alkaline Phosphatase 142 U/L (38-126); Aspartate Amino Transferase 41 U/L (17-59); Bilirubin,Total 0.3 mg/dl (0.2-1.3); Blood Urea Nitrogen 68 mg/dl (9-20); Calcium 7.8 mg/dl (8.4-10.2); Carbon Dioxide 16 mmol/L (22.0-30.0); Chloride 101 mmol/L (98-107); Creatinine Clearance Estimated 25 mL/min (50-200); Estimated Glomerular Filt Rate 16 ml/min (>60); GFR (African American) 20 ML/MIN (>60); Globulin 2.8 g/dL (1.3-3.2); Glucose 286 mg/dl (74-100); Sodium 127 mmol/L (136-145); Total Protein,Serum 5.2 g/dl (6.3-8.2)
[2021-11-11 06:09] LABS: Hypochromasia 1+; Lymphocytes % 3 % (10-50); Neutrophils % 82 % (42-76); Platelet Estimate Marked Decrease; Total Cells Counted 100
[2021-11-11 06:44] LABS: POC Glucose,Bedside 287 (70-110)
--- NOTE | 2021-11-11 07:00 | PC.NURSE ---
0555: NOTIFIED DR. WATTS OF PLT:42.
--- NOTE | 2021-11-11 08:32 | XR_ITS ---
PROCEDURE INFORMATION: Exam: XR Abdomen Exam date and time: 11/11/2021 8:32 AM Age: 81 years old Clinical indication: Abdominal tenderness; Additional info: Left lower rib pain/ abdominal tenderness// had CT abdomen yesterday 11/10/21-- TECHNIQUE: Imaging protocol: XR of the abdomen. Views: Frontal supine view of the abdomen. 1 View. COMPARISON: CT ABDOMEN PELVIS WO CON 11/10/2021 12:12 PM FINDINGS: Gastrointestinal tract: Mild gastric and colonic dilatation. Prominent stool. Vasculature: Vascular calcification. Bones/joints: Degenerative change. IMPRESSION: Mild gastric and colonic dilatation.
--- NOTE | 2021-11-11 08:34 | HMH.ACPN2 ---
Internal Medicine - PN: Subj *Date: 11/11/21 *Time: 08:34 Interval history: Overnight patient has been hemodynamically stable. Alert, oriented x3. However continues to be very weak. Reports that he is stiff and sore. Daughter reports that he is fallen quite a few times at home and normally he sleeps on his left side and she wonders about his stiffness because he is been sleeping on his back in the hospital. Nursing reports that he is a two-person maximal assist to get on the side of the bed and requires help feeding. Exam Vital signs and Labs for Last 24 Hours: Temp Pulse Resp BP Pulse Ox 97.8 F 82 23 119/73 97 11/11/21 04:00 11/11/21 06:44 11/11/21 04:00 11/11/21 04:00 11/11/21 06:44 Laboratory Results - last 24 hr 11/10/21 06:25: Total Counted 100, Neutrophils % (Manual) 89 H, Band Neutrophils % 7.0, Lymphocytes % (Manual) 4 L, Platelet Estimate Marked decrease, RBC Morphology Normal 11/10/21 06:25: Hemoglobin A1c 9.0 H 11/10/21 11:39: POC Glucose 337 H* 11/10/21 15:49: POC Glucose 376 H* 11/10/21 17:55: Sodium 126 L, Potassium 3.9, Chloride 99, Carbon Dioxide 18 L, Anion Gap 12.9, BUN 69 H, Creatinine 3.90 H, Estimated Creat Clear 22, Estimated GFR 15 L*, Est GFR ( Amer) 18 L*, Glucose 354 H D, Calcium 7.7 L 11/10/21 20:32: POC Glucose 341 H* 11/11/21 05:17: WBC 10.5, RBC 3.75 L, Hgb 11.1 L, Hct 35.1 L, MCV 93.5, MCH 29.7, MCHC 31.8, RDW 14.2, Plt Count 42 L* D, MPV 11.2 H, Neut % (Auto) 91.5 H, Lymph % (Auto) 4.7 L, [place] % (Auto) 3.6, Eos % (Auto) 0.1, Baso % (Auto) 0.1, Neut # (Auto) 9.6 H, Lymph # (Auto) 0.5 L, [place] # (Auto) 0.4, Eos # (Auto) 0.0, Baso # (Auto) 0.0, Total Counted 100, Neutrophils % (Manual) 82 H, Band Neutrophils % 15.0 H, Lymphocytes % (Manual) 3 L, Platelet Estimate Marked decrease, Hypochromasia 1+ 11/11/21 05:17: Sodium 127 L, Potassium 4.0, Chloride 101, Carbon Dioxide 16 L, Anion Gap 14.0, BUN 68 H, Creatinine 3.60 H, Estimated Creat Clear 25, Estimated GFR 16 L*, Est GFR ( Amer) 20 L, Glucose 286 H, Calcium 7.8 L, Total Bilirubin 0.3, AST 41, ALT 34, Alkaline Phosphatase 142 H, Total Protein 5.2 L, Albumin 2.4 L D, Globulin 2.8, Albumin/Globulin Ratio 0.9 L 11/11/21 06:38: POC Glucose 287 H I & O for Last 24 hours: Intake & Output 11/08/21 11/09/21 11/10/21 11/11/21 11:59 11:59 11:59 11:59 Intake Total 480 / 480 530 / 530 5317 / 5317 Output Total 400 / 400 450 / 450 2400 / 2400 Balance 80 / 80 80 / 80 2917 / 2917 Weight 200 lb 227 lb 1.218 oz 230 lb Microbiology Reports for the Last 24 Hours: Microbiology 11/08/21 22:34 Blood Blood Culture - Final Escherichia coli 11/08/21 22:34 Blood Blood Culture - Final Escherichia coli 11/08/21 10:43 Urine,Clean Catch Urine Culture - Final Escherichia coli Narrative: Patient is awake, alert. Very weak, is able to talk and finish sentences without stopping but is really unable to do a lot of motor testing on his lower extremities or upper extremities. Is able to squeeze my hands and move his ankles and feet and knees symmetrically. Lungs have scattered rhonchi bilaterally. He is exquisitely tender along the left lower costal margin on the bony aspects of the ribs. No abdominal tenderness unless my hands contact the bony structures of his ribs. Heart rate regular. Extremities without edema or clubbing, well perfused, Rivera catheter draining clear yellow urine. Assessment and Plan (1) Severe sepsis with acute organ dysfunction Status: Acute Category: Medical Code(s): A41.9 - Sepsis, unspecified organism; R65.20 - Severe sepsis without septic shock (2) E coli bacteremia Status: Acute Category: Medical Code(s): R78.81 - Bacteremia; B96.20 - Unspecified Escherichia coli [E. coli] as the cause of diseases classified elsewhere (3) UTI (urinary tract infection) Status: Acute Qualifiers: Urinary
[2021-11-11 11:59] LABS: POC Glucose,Bedside 302 (70-110)
--- NOTE | 2021-11-11 12:13 | PC.NURSE ---
PT IS RESTING IN BED WITH DAUGHTER AT BEDSIDE. ALERT AND ORIENTED X4. PT HAS BEEN VERY DROWSY THIS SHIFT BUT WILL AWAKEN EASILY. PT HAS BEEN ABLE TO TALK IN COMPLETE SENTENCES W/O DIFFICULTY. CONTINUES TO BE VERY WEAK. PT PARTICIPATED WITH PHYSICAL THERAPY THIS MORNING WITH EXERCISES IN THE BED. PT WAS A MAX ASSIST TO SIT UP ON THE SOB. PT HAS NEEDED ASSISTANCE WITH EATING AND DRINKING AND HAS BEEN TOTAL CARE WITH ALL ADL'S. TURNED AND REPOSITIONED IN BED. LUNG SOUNDS HAVE SCATTERED RHONCHI. ON ASSESSMENT THIS MORNING PT HAD ABDOMINAL TENDERNESS. TEDS NOTED TO BLE. SCATTERED BRUISING NOTED. WILL CONTINUE TO MONITOR.
[2021-11-11 16:25] LABS: POC Glucose,Bedside 347 (70-110)
[2021-11-12] VITALS (9 sets, daily range): BP systolic 135–158; BP diastolic 63–95; PULSE 60–82; RESP 14–24; TEMP 36.4–37.5; O2SAT 91–96; BMI 33.7
[2021-11-12 06:17] LABS: POC Glucose,Bedside 307 (70-110)
[2021-11-12 06:40] LABS: POC Glucose,Bedside 253 (70-110)
[2021-11-12 07:31] LABS: Basophils % 0.2 % (0.1-2.0); Eosinophils # 0.1 K/mm3 (0.0-0.4); Eosinophils % 0.7 % (0.1-12.0); Hematocrit 35.5 % (42.0-52.0); Hemoglobin 11.2 g/dL (14.1-18.0); Lymphocytes # 0.6 K/mm3 (0.7-4.5); Lymphocytes % 7.2 % (10-50); Mean Corpuscular HGB Conc 31.6 g/dL (31.8-35.4); Mean Corpuscular Hemoglobin 29.1 pg (27.0-31.2); Mean Corpuscular Volume 92.2 fl (80-94); Mean Platelet Volume 10.9 fl (7.4-10.4); Monocytes # 0.5 K/mm3 (0.1-1.0); Monocytes % 5.9 % (1.7-9.3); Neutrophils # 7.3 K/mm3 (1.8-7.8); Neutrophils % 86.1 % (37.0-80.0); Red Blood Count 3.85 M/mm3 (4.60-6.20); Red Cell Distribution Width 14.5 % (11.5-17.5); White Blood Count 8.5 K/mm3 (4.8-10.8)
[2021-11-12 07:43] LABS: Alanine Aminotransferase 39 U/L (12-78); Albumin Level 2.4 g/dl (3.5-5.0); Albumin/Globulin Ratio 0.8 (1.1-1.8); Alkaline Phosphatase 155 U/L (38-126); Anion Gap 14.9 mEq/L (5-15); Aspartate Amino Transferase 47 U/L (17-59); Bilirubin,Total 0.3 mg/dl (0.2-1.3); Blood Urea Nitrogen 62 mg/dl (9-20); Calcium 8.1 mg/dl (8.4-10.2); Carbon Dioxide 16 mmol/L (22.0-30.0); Chloride 104 mmol/L (98-107); Creatinine Clearance Estimated 29 mL/min (50-200); Estimated Glomerular Filt Rate 18 ml/min (>60); GFR (African American) 22 ML/MIN (>60); Globulin 2.9 g/dL (1.3-3.2); Glucose 251 mg/dl (74-100); Potassium 3.9 mmoL/L (3.5-5.1); Sodium 131 mmol/L (136-145); Total Protein,Serum 5.3 g/dl (6.3-8.2)
[2021-11-12 07:49] LABS: Platelet Count 49 K/mm3 (142-424)
[2021-11-12 07:50] LABS: MANUAL DIFFERENTIAL MANUAL DIFFERENTIAL (MANUAL DIFF)
--- NOTE | 2021-11-12 07:55 | PC.NURSE ---
platelet count 49 this morning, slight improvement from 11/11
[2021-11-12 08:51] LABS: Eosinophils % 1 % (0-3); Lymphocytes % 5 % (10-50); Monocytes % 5 % (2-9); Neutrophils % 89 % (42-76); Platelet Estimate Marked Decrease; RBC Morphology Normal; Total Cells Counted 100
--- NOTE | 2021-11-12 09:18 | HMH.ACPN2 ---
Internal Medicine - PN: Subj *Date: 11/12/21 *Time: 09:18 Interval history: Patient is much more alert and talkative. Ate breakfast well but had to be almost to complete feed process. Still has had no bowel movements but has been drinking prune juice well. Exam Vital signs and Labs for Last 24 Hours: Temp Pulse Resp BP Pulse Ox 98.4 F 77 24 136/63 94 L 11/12/21 04:00 11/12/21 07:24 11/12/21 04:00 11/12/21 04:00 11/12/21 07:24 Laboratory Results - last 24 hr 11/11/21 11:52: POC Glucose 302 H* 11/11/21 16:17: POC Glucose 347 H* 11/11/21 21:25: POC Glucose 307 H* 11/12/21 06:12: POC Glucose 253 H 11/12/21 07:13: WBC 8.5, RBC 3.85 L, Hgb 11.2 L, Hct 35.5 L, MCV 92.2, MCH 29.1, MCHC 31.6 L, RDW 14.5, Plt Count 49 L*, MPV 10.9 H, Neut % (Auto) 86.1 H, Lymph % (Auto) 7.2 L, [place] % (Auto) 5.9, Eos % (Auto) 0.7, Baso % (Auto) 0.2, Neut # (Auto) 7.3, Lymph # (Auto) 0.6 L, [place] # (Auto) 0.5, Eos # (Auto) 0.1, Baso # (Auto) 0.0, Total Counted 100, Neutrophils % (Manual) 89 H, Lymphocytes % (Manual) 5 L, Monocytes % (Manual) 5, Eosinophils % (Manual) 1, Platelet Estimate Marked decrease, RBC Morphology Normal 11/12/21 07:13: Sodium 131 L, Potassium 3.9, Chloride 104, Carbon Dioxide 16 L, Anion Gap 14.9, BUN 62 H, Creatinine 3.30 H, Estimated Creat Clear 29, Estimated GFR 18 L*, Est GFR ( Amer) 22 L, Glucose 251 H, Calcium 8.1 L, Total Bilirubin 0.3, AST 47, ALT 39, Alkaline Phosphatase 155 H, Total Protein 5.3 L, Albumin 2.4 L, Globulin 2.9, Albumin/Globulin Ratio 0.8 L I & O for Last 24 hours: Intake & Output 11/09/21 11/10/21 11/11/21 11/12/21 11:59 11:59 11:59 11:59 Intake Total 480 / 480 530 / 530 5317 / 5317 1030 / 1030 Output Total 400 / 400 450 / 450 2400 / 2400 2500 / 2500 Balance 80 / 80 80 / 80 2917 / 2917 -1470 / -1470 Weight 227 lb 1.218 oz 230 lb 249 lb 3.2 oz Microbiology Reports for the Last 24 Hours: Microbiology 11/08/21 22:34 Blood Blood Culture - Final Escherichia coli 11/08/21 22:34 Blood Blood Culture - Final Escherichia coli Narrative: Soft abdomen, still slightly tender in the left upper quadrant. Breathing easily. Heart rate regular. No abnormal lung sounds. Rivera catheter draining clear yellow urine. Very weak but slightly improved over yesterday Assessment and Plan (1) Severe sepsis with acute organ dysfunction Status: Acute Category: Medical Code(s): A41.9 - Sepsis, unspecified organism; R65.20 - Severe sepsis without septic shock (2) E coli bacteremia Status: Acute Category: Medical Code(s): R78.81 - Bacteremia; B96.20 - Unspecified Escherichia coli [E. coli] as the cause of diseases classified elsewhere (3) UTI (urinary tract infection) Status: Acute Qualifiers: Urinary tract infection type: site unspecified Hematuria presence: without hematuria Qualified Code(s): N39.0 - Urinary tract infection, site not specified Category: Medical Code(s): N39.0 - Urinary tract infection, site not specified (4) CAD (coronary artery disease) Status: Acute Category: Medical Code(s): I25.10 - Atherosclerotic heart disease of [place] coronary artery without angina pectoris (5) Elevated troponin Status: Acute Category: Medical Code(s): R77.8 - Other specified abnormalities of plasma proteins (6) Abnormal EKG Status: Acute Category: Medical Code(s): R94.31 - Abnormal electrocardiogram [ECG] [EKG] (7) History of CVA (cerebrovascular accident) Status: Acute Category: Medical Code(s): Z86.73 - Personal history of transient ischemic attack (TIA), and cerebral infarction without residual deficits (8) IZZY (acute kidney injury) Status: Acute Category: Medical Code(s): N17.9 - Acute kidney failure, unspecified (9) Encephalopathy acute Status: Acute Category: Medical Code(s): G93.40 - Encephalopathy, unspecified (10) History of recurrent TIAs Status
[2021-11-12 11:41] LABS: POC Glucose,Bedside 250 (70-110)
[2021-11-12 16:59] LABS: POC Glucose,Bedside 310 (70-110)
[2021-11-13] VITALS (16 sets, daily range): BP systolic 98–154; BP diastolic 60–78; PULSE 50–140; RESP 14–24; TEMP 36.7–37.6; O2SAT 58–94
--- NOTE | 2021-11-13 05:16 | PC.NURSE ---
could not weigh pt because bed said it was zeroed out with him in it, and the pt can not stand.
--- NOTE | 2021-11-13 07:00 | PC.NURSE ---
PT NOTED TO BE TACHYCARDIC ON TELE. WAS DIAPHORETIC AND TACHYPNEIC. DENIED CHEST PAIN AND SOB. VITAL SIGNS AND EKG OBTAINED. DR WATTS WAS NOTIFIED OF RESULTS AND ORDERED 5MG IV BOLUS OF CARDIZEM AND 40MG IV LASIX. HR REMAINED ELEVATED. V/O TO START CARDIZEM GTT AT 10.
[2021-11-13 07:22] LABS: Basophils % 0.3 % (0.1-2.0); Eosinophils # 0.1 K/mm3 (0.0-0.4); Eosinophils % 0.6 % (0.1-12.0); Hematocrit 36.5 % (42.0-52.0); Hemoglobin 11.3 g/dL (14.1-18.0); Lymphocytes # 0.5 K/mm3 (0.7-4.5); Lymphocytes % 6.5 % (10-50); Mean Corpuscular HGB Conc 30.9 g/dL (31.8-35.4); Mean Corpuscular Hemoglobin 29.6 pg (27.0-31.2); Mean Corpuscular Volume 95.5 fl (80-94); Mean Platelet Volume 11.5 fl (7.4-10.4); Monocytes # 0.5 K/mm3 (0.1-1.0); Monocytes % 6.6 % (1.7-9.3); Neutrophils # 6.6 K/mm3 (1.8-7.8); Platelet Count 55 K/mm3 (142-424); Red Blood Count 3.82 M/mm3 (4.60-6.20); Red Cell Distribution Width 14.6 % (11.5-17.5); White Blood Count 7.7 K/mm3 (4.8-10.8)
[2021-11-13 07:27] LABS: MANUAL DIFFERENTIAL MANUAL DIFFERENTIAL (MANUAL DIFF)
[2021-11-13 07:33] LABS: Anion Gap 13.1 mEq/L (5-15); Blood Urea Nitrogen 60 mg/dl (9-20); Calcium 7.9 mg/dl (8.4-10.2); Carbon Dioxide 16 mmol/L (22.0-30.0); Chloride 104 mmol/L (98-107); Creatinine Clearance Estimated 34 mL/min (50-200); Estimated Glomerular Filt Rate 22 ml/min (>60); GFR (African American) 27 ML/MIN (>60); Glucose 278 mg/dl (74-100); Potassium 4.1 mmoL/L (3.5-5.1); Sodium 129 mmol/L (136-145)
--- NOTE | 2021-11-13 07:41 | ECG_ITS ---
APPROVED REPORT Exam: Resting ECG HR:140 bpm ECG Measurements Heart Rate 140 AXES QRSd 162 QRS -73 QT 349 T 34 QTc 430 Conclusion ATRIAL FIBRILLATION WITH RAPID VENTRICULAR RESPONSE RIGHT BUNDLE BRANCH BLOCK [120+ ms QRS DURATION, UPRIGHT V1, 40+ ms S IN I/aVL/V4/V5/V6] LEFT ANTERIOR FASCICULAR BLOCK [QRS AXIS <= -45, QR IN I, RS IN II] POSSIBLE SEPTAL MYOCARDIAL INFARCTION , OF INDETERMINATE AGE [30 ms Q WAVE IN V1/V2] ABNORMAL ECG UNCONFIRMED REPORT Electronically signed by : Alfredo Fgaan MD 11/13/2021 18:34:11
[2021-11-13 08:06] LABS: POC Glucose,Bedside 288 (70-110)
[2021-11-13 08:06] LABS: POC Glucose,Bedside 271 (70-110)
[2021-11-13 08:44] LABS: Magnesium 1.7 mg/dl (1.6-2.3)
--- NOTE | 2021-11-13 09:12 | HMH.ACPN2 ---
Internal Medicine - PN: Subj *Date: 11/13/21 *Time: 09:12 Interval history: Patient had some lethargic episodes through the day yesterday, however he had stable vital signs until this morning when he went back into a rapid A. fib in the 120s. We administered 5 mg of IV diltiazem and have restarted his diltiazem drip at 10 mg/h. Labs ordered. Creatinine is improving. Sodium is slightly low, magnesium is low normal. Patient this morning is actually more alert than yesterday, talkative and oriented x3. Very weak Exam Vital signs and Labs for Last 24 Hours: Temp Pulse Resp BP Pulse Ox 98.2 F 114 H 17 127/75 93 L 11/13/21 07:36 11/13/21 07:36 11/13/21 07:36 11/13/21 07:36 11/13/21 07:36 Laboratory Results - last 24 hr 11/12/21 11:33: POC Glucose 250 H 11/12/21 16:31: POC Glucose 310 H* 11/12/21 22:18: POC Glucose 271 H 11/13/21 06:11: POC Glucose 288 H 11/13/21 06:12: WBC 7.7, RBC 3.82 L, Hgb 11.3 L, Hct 36.5 L, MCV 95.5 H, MCH 29.6, MCHC 30.9 L, RDW 14.6, Plt Count 55 L, MPV 11.5 H, Neut % (Auto) 86.0 H, Lymph % (Auto) 6.5 L, [place] % (Auto) 6.6, Eos % (Auto) 0.6, Baso % (Auto) 0.3, Neut # (Auto) 6.6, Lymph # (Auto) 0.5 L, [place] # (Auto) 0.5, Eos # (Auto) 0.1, Baso # (Auto) 0.0 11/13/21 06:12: Sodium 129 L, Potassium 4.1, Chloride 104, Carbon Dioxide 16 L, Anion Gap 13.1, BUN 60 H, Creatinine 2.80 H, Estimated Creat Clear 34, Estimated GFR 22 L, Est GFR ( Amer) 27 L D, Glucose 278 H, Calcium 7.9 L 11/13/21 06:12: Magnesium 1.7 I & O for Last 24 hours: Intake & Output 11/10/21 11/11/21 11/12/21 11/13/21 11:59 11:59 11:59 11:59 Intake Total 530 / 530 5317 / 5317 1390 / 1390 360 / 360 Output Total 450 / 450 2400 / 2400 4000 / 4000 1350 / 1350 Balance 80 / 80 2917 / 2917 -2610 / -2610 -990 / -990 Weight 230 lb 249 lb 3.2 oz Narrative: Heart rate rapid. Regular. Lungs have fairly good air entry. Abdomen soft, bruising noted around his lower chest wall, his daughter states this is where her family is try to keep him from falling at home. Of note no rib fractures on chest x-ray. He is tender around this area but no deformity noted. Extremities are warm and well-perfused. Globally weak as before but his mental status is slightly improving. Assessment and Plan (1) Severe sepsis with acute organ dysfunction Status: Acute Category: Medical Code(s): A41.9 - Sepsis, unspecified organism; R65.20 - Severe sepsis without septic shock (2) E coli bacteremia Status: Acute Category: Medical Code(s): R78.81 - Bacteremia; B96.20 - Unspecified Escherichia coli [E. coli] as the cause of diseases classified elsewhere (3) UTI (urinary tract infection) Status: Acute Qualifiers: Urinary tract infection type: site unspecified Hematuria presence: without hematuria Qualified Code(s): N39.0 - Urinary tract infection, site not specified Category: Medical Code(s): N39.0 - Urinary tract infection, site not specified (4) CAD (coronary artery disease) Status: Acute Category: Medical Code(s): I25.10 - Atherosclerotic heart disease of [place] coronary artery without angina pectoris (5) Elevated troponin Status: Acute Category: Medical Code(s): R77.8 - Other specified abnormalities of plasma proteins (6) Abnormal EKG Status: Acute Category: Medical Code(s): R94.31 - Abnormal electrocardiogram [ECG] [EKG] (7) History of CVA (cerebrovascular accident) Status: Acute Category: Medical Code(s): Z86.73 - Personal history of transient ischemic attack (TIA), and cerebral infarction without residual deficits (8) IZZY (acute kidney injury) Status: Acute Category: Medical Code(s): N17.9 - Acute kidney failure, unspecified (9) Encephalopathy acute Status: Acute Category: Medical Code(s): G93.40 - Encephalopathy, unspecified (10) History of recurrent TIAs Status: Acute Category: Medical Code(s): Z86.73 - Personal history of transient ischemic attack (TIA), a
[2021-11-13 09:36] LABS: Lymphocytes % 9 % (10-50); Monocytes % 5 % (2-9); Neutrophils % 86 % (42-76); Nucleated Red Blood Cells 1; Platelet Estimate Marked Decrease; Total Cells Counted 100
[2021-11-13 09:37] LABS: RBC Morphology Normal
--- NOTE | 2021-11-13 11:16 | HMH.PNCARD ---
Subjective Date: 11/13/21 Time: 11:00 Principal diagnosis: UTI, IZZY, CAD, PAF Interval history: This is a 81-year-old white gentleman who presented to the emergency department initially for weakness and fatigue. The patient was found to be in renal failure. He did have elevated troponins and went into atrial fibrillation with RVR. The patient did convert to sinus rhythm with diltiazem and was switched over to oral diltiazem. Then overnight last night he did go back into atrial fibrillation with RVR. He has been restarted on a diltiazem drip. He is currently at 5 mg an hour. He still remains somewhat tachycardic with a heart rate in the low 100s. This morning he denies any chest pain or pressure. He denies any shortness of breath. He states that he just feels very weak and fatigued. He does appear to look very flushed and diaphoretic. He has some edema in his upper extremities as well as lower extremities. He denies any fevers, chills, nausea, vomiting or diarrhea. Exam Vital signs and Labs for Last 24 Hours: Temp Pulse Resp BP Pulse Ox 98.2 F 114 H 17 127/75 93 L 11/13/21 07:36 11/13/21 07:36 11/13/21 07:36 11/13/21 07:36 11/13/21 07:36 Laboratory Results - last 24 hr 11/12/21 11:33: POC Glucose 250 H 11/12/21 16:31: POC Glucose 310 H* 11/12/21 22:18: POC Glucose 271 H 11/13/21 06:11: POC Glucose 288 H 11/13/21 06:12: WBC 7.7, RBC 3.82 L, Hgb 11.3 L, Hct 36.5 L, MCV 95.5 H, MCH 29.6, MCHC 30.9 L, RDW 14.6, Plt Count 55 L, MPV 11.5 H, Neut % (Auto) 86.0 H, Lymph % (Auto) 6.5 L, [place] % (Auto) 6.6, Eos % (Auto) 0.6, Baso % (Auto) 0.3, Neut # (Auto) 6.6, Lymph # (Auto) 0.5 L, [place] # (Auto) 0.5, Eos # (Auto) 0.1, Baso # (Auto) 0.0, Total Counted 100, Neutrophils % (Manual) 86 H, Lymphocytes % (Manual) 9 L, Monocytes % (Manual) 5, Nucleated RBCs 1, Platelet Estimate Marked decrease, RBC Morphology Normal 11/13/21 06:12: Sodium 129 L, Potassium 4.1, Chloride 104, Carbon Dioxide 16 L, Anion Gap 13.1, BUN 60 H, Creatinine 2.80 H, Estimated Creat Clear 34, Estimated GFR 22 L, Est GFR ( Amer) 27 L D, Glucose 278 H, Calcium 7.9 L 11/13/21 06:12: Magnesium 1.7 I & O for Last 24 hours: Intake & Output 11/10/21 11/11/21 11/12/21 11/13/21 23:59 23:59 23:59 23:59 Intake Total 2133 / 2133 4324 / 4324 720 / 720 120 / 120 Output Total 1850 / 2850 2500 / 3500 2500 / 3850 1350 / 1350 Balance 283 / -717 1824 / 824 -1780 / -3130 -1230 / -1230 Weight 230 lb 249 lb 3.2 oz Narrative: Monitor strip shows atrial fibrillation with a rate of 103. - Constitutional no acute distress, obese, chronically ill appearing - *Routine HEENT Exam Head: Present: normocephalic, atraumatic Eye: Present: EOMI, PERRL ENT: Present: mucous membranes moist - *Routine Neck Exam Present: supple, full ROM, normal carotid upstroke. Absent: JVD, carotid bruit, lymphadenopathy - *Routine Respiratory Exam Present: CTA bilaterally - *Routine Cardiovascular Exam Present: Normal S1, Normal S2, murmur, tachycardia, irregularly irregular - *Routine Abdominal Exam Present: soft, normoactive bowel sounds. Absent: tenderness, distended - *Routine Extremities Exam Present: edema, pulses intact, normal capillary refill. Absent: cyanosis, clubbing - *Routine Skin Exam Present: intact, erythema (His cheeks are flushed and red), warm. Absent: rash Comments: diaphoretic - *Routine Neurological Exam Present: alert, oriented X3. Absent: sensory deficit, motor deficit Progress Note: A&P (1) Atrial fibrillation Status: Acute (2) Thrombocytopenia Status: Acute (3) Severe sepsis with acute organ dysfunction Status: Acute (4) E coli bacteremia Status: Acute (5) UTI (urinary tract infection) Status: Acute (6) CAD (coronary artery disease) Status: Acute (7) Elevated troponin Status: Acute (8) Abnormal EKG Status: Acute (9) History of CVA (cerebrovascular accident) Status: Acute (10) IZZY (acut
--- NOTE | 2021-11-13 11:22 | SW/DCPLANNER ---
Addendum entered by Daphney Koo 11/16/21 10:49: PATIENT IS DISCHARGING TO [facility] TODAY, DAUGHTER AT BEDSIDE.. DR WATTS'S PRACTICE WILL BE FOLLOWING HIM DURING HIS STAY THERE.. Addendum entered by Daphney Koo 11/15/21 11:59: RECEIVED A CALL FROM MONI AT [facility] AND SHE STATED INSURANCE GAVE APPROVAL FOR [facility] ANDREA TO GO THERE FOR SKILLED REHAB. IF PATIENT IS MEDICALLY STABLE HE WILL DISCHARGE THERE IN THE AM... Addendum entered by Daphney Koo 11/14/21 14:29: MONI IS COMING TO SEE PATIENT TODAY AND SPEAK WITH HIM AND DAUGHTER ABOUT SHORT TERM PLACEMENT... Addendum entered by Daphney Koo 11/13/21 12:10: SEN UPDATES TO [facility] TODAY ON THIS PATIENT.. WAITING TO HEAR BACK TO WHETHER HE WILL BE ACCEPTED WHEN READY FOR A DISPOSITION.. HIS STAY AT [facility] WILL BE SHORT TERM.. Original Note: PATIENT IS INTERESTED IN GOING TO [facility] FOR SKILLED CARE SHORT TERM.. I HAVE SENT REFERRAL TO [facility] AND DID A FOLLOW UP THIS MORNING AND SENT WEEKEND UPDATES. WILL SEE IF THEY CAN ACCEPT HIM AND WORK ON D/C PLAN THEN... PATIENT IS NOT MEDICALLY READY TODAY FOR A DISPOSITION..
[2021-11-13 11:51] LABS: POC Glucose,Bedside 316 (70-110)
--- NOTE | 2021-11-13 14:36 | PC.NURSE ---
[id number] patient given po cardizem will turn off in one hour
--- NOTE | 2021-11-13 15:17 | ECG_ITS ---
APPROVED REPORT Exam: Resting ECG HR:65 bpm ECG Measurements Heart Rate 65 AXES DE 187 P 48 QRSd 173 QRS -54 QT 446 T 24 QTc 457 Conclusion SINUS RHYTHM WITH MARKED SINUS ARRHYTHMIA RIGHT BUNDLE BRANCH BLOCK [120+ ms QRS DURATION, UPRIGHT V1, 40+ ms S IN I/aVL/V4/V5/V6] LEFT ANTERIOR FASCICULAR BLOCK [QRS AXIS <= -45, QR IN I, RS IN II] ABNORMAL ECG UNCONFIRMED REPORT Electronically signed by : Alfredo Fagan MD 11/13/2021 18:31:20
--- NOTE | 2021-11-13 16:08 | PC.NURSE ---
patient at beginning of shift was diaphoretic and very warm and flushed. he appeared uncomfortable and like he felt bad. heart rate was elevated in 130s 140s. after iv pus of cardizem patient was placed on diltiazem drip at 10mg/hour. when heart rate maintained 70/80s it was turned down to 5mg/hr.at 1345 relayed this to migdalia santizo who stated to give po dose of cardizem and bisoprolol and turn gtt off in one hour. however after thirty minutes it was noted patient had converted and heart rate was 60s with occasional drops into 50s. migdalia santizo notified and gtt turned of at 1510. patient has also become less flushed and no longer sweaty. patient stated he finally got some sleep and has felt better since. some swelling in r arm noted, and periorbital edema noted. patietn has been turned as requested. output has been okay since lasix. no fever noted. removed from stepdown once off gtt. family has been at bedside. yells out with any movement. patient appetite has been good. remains on o2.
[2021-11-14] VITALS (7 sets, daily range): BP systolic 122–139; BP diastolic 54–68; PULSE 45–65; RESP 16–21; TEMP 36.3–36.9; O2SAT 91–94; BMI 34.2
[2021-11-14 08:24] LABS: Anion Gap 12.2 mEq/L (5-15); Blood Urea Nitrogen 62 mg/dl (9-20); Carbon Dioxide 20 mmol/L (22.0-30.0); Chloride 105 mmol/L (98-107); Creatinine Clearance Estimated 33 mL/min (50-200); Potassium 4.2 mmoL/L (3.5-5.1); Sodium 133 mmol/L (136-145)
[2021-11-14 08:25] LABS: Alanine Aminotransferase 25 U/L (12-78); Albumin Level 2.5 g/dl (3.5-5.0); Alkaline Phosphatase 134 U/L (38-126); Aspartate Amino Transferase 19 U/L (17-59); Bilirubin,Direct 0.2 mg/dl (0.0-0.4); Bilirubin,Indirect 0.2 mg/dL (0.0-0.9); Bilirubin,Total 0.4 mg/dl (0.2-1.3); Bilirubin,Unconjugated 0.2 mg/dL (0.0-1.1); Calcium 8.2 mg/dl (8.4-10.2); Chol/HDL Ratio 9.5 (1-3.5); Cholesterol 124 mg/dl (140-200); Estimated Glomerular Filt Rate 21 ml/min (>60); GFR (African American) 26 ML/MIN (>60); Glucose 248 mg/dl (74-100); HDL Cholesterol 13 mg/dl (40-60); Total Protein,Serum 5.6 g/dl (6.3-8.2); Triglycerides 146 mg/dl (30-150); VLDL Cholesterol 29 mg/dL (0-40)
[2021-11-14 08:35] LABS: Direct LDL Cholesterol 70.28 mg/dL (100-129)
--- NOTE | 2021-11-14 10:08 | HMH.ACPN2 ---
Internal Medicine - PN: Subj *Date: 11/14/21 *Time: 10:08 Exam Vital signs and Labs for Last 24 Hours: Temp Pulse Resp BP Pulse Ox 98.3 F 56 L 17 128/54 L 94 L 11/14/21 08:00 11/14/21 08:00 11/14/21 08:00 11/14/21 08:00 11/14/21 08:00 Laboratory Results - last 24 hr 11/13/21 11:06: POC Glucose 316 H* 11/14/21 06:28: Sodium 133 L, Potassium 4.2, Chloride 105, Carbon Dioxide 20 L, Anion Gap 12.2, BUN 62 H, Creatinine 2.90 H, Estimated Creat Clear 33, Estimated GFR 21 L, Est GFR ( Amer) 26 L, Glucose 248 H, Calcium 8.2 L, Total Bilirubin 0.4, Direct Bilirubin 0.2, Conjugated Bilirubin 0.0, Indirect Bilirubin 0.2, Unconjugated Bilirubin 0.2, AST 19 D, ALT 25 D, Alkaline Phosphatase 134 H, Total Protein 5.6 L, Albumin 2.5 L, Triglycerides 146, Cholesterol 124 L, LDL Cholesterol Direct 70.28 L, VLDL Cholesterol 29, HDL Cholesterol 13 L, Cholesterol/HDL Ratio 9.5 H I & O for Last 24 hours: Intake & Output 11/11/21 11/12/21 11/13/21 11/14/21 23:59 23:59 23:59 23:59 Intake Total 4324 / 4324 720 / 720 550 / 550 180 / 180 Output Total 2500 / 3500 2500 / 3850 3650 / 3830 180 / 180 Balance 1824 / 824 -1780 / -3130 -3100 / -3280 0 / 0 Weight 104.326 kg 113.035 kg 114.5 kg Microbiology Reports for the Last 24 Hours: Microbiology 11/12/21 07:13 Blood Blood Culture - Preliminary NO GROWTH AFTER 48 HOURS 11/12/21 07:13 Blood Blood Culture - Preliminary NO GROWTH AFTER 48 HOURS Assessment and Plan (1) Atrial fibrillation Status: Acute Category: Medical Code(s): I48.91 - Unspecified atrial fibrillation (2) Thrombocytopenia Status: Acute Category: Medical Code(s): D69.6 - Thrombocytopenia, unspecified (3) Severe sepsis with acute organ dysfunction Status: Acute Category: Medical Code(s): A41.9 - Sepsis, unspecified organism; R65.20 - Severe sepsis without septic shock (4) E coli bacteremia Status: Acute Category: Medical Code(s): R78.81 - Bacteremia; B96.20 - Unspecified Escherichia coli [E. coli] as the cause of diseases classified elsewhere (5) UTI (urinary tract infection) Status: Acute Qualifiers: Urinary tract infection type: site unspecified Hematuria presence: without hematuria Qualified Code(s): N39.0 - Urinary tract infection, site not specified Category: Medical Code(s): N39.0 - Urinary tract infection, site not specified (6) CAD (coronary artery disease) Status: Acute Category: Medical Code(s): I25.10 - Atherosclerotic heart disease of [place] coronary artery without angina pectoris (7) Elevated troponin Status: Acute Category: Medical Code(s): R77.8 - Other specified abnormalities of plasma proteins (8) Abnormal EKG Status: Acute Category: Medical Code(s): R94.31 - Abnormal electrocardiogram [ECG] [EKG] (9) History of CVA (cerebrovascular accident) Status: Acute Category: Medical Code(s): Z86.73 - Personal history of transient ischemic attack (TIA), and cerebral infarction without residual deficits (10) IZZY (acute kidney injury) Status: Acute Category: Medical Code(s): N17.9 - Acute kidney failure, unspecified (11) Encephalopathy acute Status: Acute Category: Medical Code(s): G93.40 - Encephalopathy, unspecified (12) History of recurrent TIAs Status: Acute Category: Medical Code(s): Z86.73 - Personal history of transient ischemic attack (TIA), and cerebral infarction without residual deficits (13) Diabetes mellitus Status: Chronic Qualifiers: Category: Medical Code(s): E11.9 - Type 2 diabetes mellitus without complications (14) Obesity (BMI 30.0-34.9) Status: Chronic Category: Medical Code(s): E66.9 - Obesity, unspecified (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
--- NOTE | 2021-11-14 11:20 | HMH.PNCARD ---
Subjective Date: 11/14/21 Time: 11:20 Principal diagnosis: UTI, IZZY, CAD, PAF Interval history: This is a 81-year-old gentleman who presented to the emergency department for weakness and fatigue. He went into atrial fibrillation with RVR and did convert to sinus rhythm on diltiazem and was switched over to oral diltiazem. Over the weekend the patient went back in atrial fibrillation with RVR and he was rate controlled on a diltiazem drip yesterday. We did switch the patient over to oral diltiazem and bisoprolol and he subsequently converted to normal sinus rhythm. This morning he remains in sinus rhythm with a heart rate in the sixties. He denies any chest pain or pressure. He denies any shortness of breath. He denies any fever, chills, nausea, vomiting, diarrhea, PND orthopnea. He does states he is very fatigued and sleepy. He states he did not sleep well last night because he could not fall asleep. He is stating he has some edema in his right upper extremity. Exam Vital signs and Labs for Last 24 Hours: Temp Pulse Resp BP Pulse Ox 98.3 F 56 L 17 128/54 L 94 L 11/14/21 08:00 11/14/21 08:00 11/14/21 08:00 11/14/21 08:00 11/14/21 08:00 Laboratory Results - last 24 hr 11/13/21 11:06: POC Glucose 316 H* 11/14/21 06:28: Sodium 133 L, Potassium 4.2, Chloride 105, Carbon Dioxide 20 L, Anion Gap 12.2, BUN 62 H, Creatinine 2.90 H, Estimated Creat Clear 33, Estimated GFR 21 L, Est GFR ( Amer) 26 L, Glucose 248 H, Calcium 8.2 L, Total Bilirubin 0.4, Direct Bilirubin 0.2, Conjugated Bilirubin 0.0, Indirect Bilirubin 0.2, Unconjugated Bilirubin 0.2, AST 19 D, ALT 25 D, Alkaline Phosphatase 134 H, Total Protein 5.6 L, Albumin 2.5 L, Triglycerides 146, Cholesterol 124 L, LDL Cholesterol Direct 70.28 L, VLDL Cholesterol 29, HDL Cholesterol 13 L, Cholesterol/HDL Ratio 9.5 H I & O for Last 24 hours: Intake & Output 11/11/21 11/12/21 11/13/21/25/22 23:59 23:59 23:59 23:59 Intake Total 4324 / 4324 720 / 720 550 / 550 180 / 180 Output Total 2500 / 3500 2500 / 3850 3650 / 3830 180 / 180 Balance 1824 / 824 -1780 / -3130 -3100 / -3280 0 / 0 Weight 230 lb 249 lb 3.2 oz 252 lb 6.868 oz Microbiology Reports for the Last 24 Hours: Microbiology 11/12/21 07:13 Blood Blood Culture - Preliminary NO GROWTH AFTER 48 HOURS 11/12/21 07:13 Blood Blood Culture - Preliminary NO GROWTH AFTER 48 HOURS Narrative: Telemetry strip shows sinus rhythm with a rate of 62. - Constitutional no acute distress, obese - *Routine HEENT Exam Head: Present: normocephalic, atraumatic Eye: Present: EOMI, PERRL ENT: Present: mucous membranes moist - *Routine Neck Exam Present: supple, full ROM, normal carotid upstroke. Absent: JVD, carotid bruit, lymphadenopathy - *Routine Respiratory Exam Present: CTA bilaterally - *Routine Cardiovascular Exam Present: RRR, Normal S1, Normal S2. Absent: murmur - *Routine Abdominal Exam Present: soft, normoactive bowel sounds. Absent: tenderness, distended - *Routine Extremities Exam Present: full ROM, pulses intact, normal capillary refill. Absent: cyanosis, clubbing, edema - *Routine Skin Exam Present: intact, warm. Absent: erythema, rash - *Routine Neurological Exam Present: alert, oriented X3, CN II-XII intact. Absent: sensory deficit, motor deficit Progress Note: A&P (1) Atrial fibrillation Status: Acute (2) Thrombocytopenia Status: Acute (3) Severe sepsis with acute organ dysfunction Status: Acute (4) E coli bacteremia Status: Acute (5) UTI (urinary tract infection) Status: Acute (6) CAD (coronary artery disease) Status: Acute (7) Elevated troponin Status: Acute (8) Abnormal EKG Status: Acute (9) History of CVA (cerebrovascular accident) Status: Acute (10) IZZY (acute kidney injury) Status: Acute (11) Encephalopathy acute Status: Acute (12) History o
[2021-11-14 11:38] LABS: POC Glucose,Bedside 334 (70-110)
[2021-11-14 11:38] LABS: POC Glucose,Bedside 313 (70-110)
[2021-11-14 11:39] LABS: POC Glucose,Bedside 314 (70-110)
--- NOTE | 2021-11-14 13:33 | HMH.ACPN2 ---
Internal Medicine - PN: Subj *Date: 11/14/21 *Time: 13:33 Interval history: Mr. Montgomery did well overnight. Able to recapture his A. fib with increased diltiazem dose. In bedside chair this morning. No nausea or vomiting. Shortness of breath improving. Improved oxygen requirement. No chest pain. Afebrile. Exam Vital signs and Labs for Last 24 Hours: Temp Pulse Resp BP Pulse Ox 97.4 F L 59 L 19 122/57 L 91 L 11/14/21 12:00 11/14/21 12:00 11/14/21 12:00 11/14/21 12:00 11/14/21 12:00 Laboratory Results - last 24 hr 11/13/21 17:02: POC Glucose 334 H* 11/13/21 21:55: POC Glucose 313 H* 11/14/21 06:28: Sodium 133 L, Potassium 4.2, Chloride 105, Carbon Dioxide 20 L, Anion Gap 12.2, BUN 62 H, Creatinine 2.90 H, Estimated Creat Clear 33, Estimated GFR 21 L, Est GFR ( Amer) 26 L, Glucose 248 H, Calcium 8.2 L, Total Bilirubin 0.4, Direct Bilirubin 0.2, Conjugated Bilirubin 0.0, Indirect Bilirubin 0.2, Unconjugated Bilirubin 0.2, AST 19 D, ALT 25 D, Alkaline Phosphatase 134 H, Total Protein 5.6 L, Albumin 2.5 L, Triglycerides 146, Cholesterol 124 L, LDL Cholesterol Direct 70.28 L, VLDL Cholesterol 29, HDL Cholesterol 13 L, Cholesterol/HDL Ratio 9.5 H 11/14/21 07:50: POC Glucose 314 H* I & O for Last 24 hours: Intake & Output 11/11/21 11/12/21 11/13/21 11/14/21 23:59 23:59 23:59 23:59 Intake Total 4324 / 4324 720 / 720 550 / 550 420 / 420 Output Total 2500 / 3500 2500 / 3850 3650 / 3830 180 / 180 Balance 1824 / 824 -1780 / -3130 -3100 / -3280 240 / 240 Weight 104.326 kg 113.035 kg 114.5 kg Microbiology Reports for the Last 24 Hours: Microbiology 11/12/21 07:13 Blood Blood Culture - Preliminary NO GROWTH AFTER 48 HOURS 11/12/21 07:13 Blood Blood Culture - Preliminary NO GROWTH AFTER 48 HOURS - Constitutional mild distress, obese - *Routine HEENT Exam Head: Present: normocephalic Eye: Present: EOMI, PERRL ENT: Present: mucous membranes moist - *Routine Neck Exam Present: supple. Absent: lymphadenopathy - *Routine Respiratory Exam Present: CTA bilaterally - *Routine Cardiovascular Exam Present: RRR, murmur - *Routine Abdominal Exam Present: soft, normoactive bowel sounds. Absent: tenderness - *Routine Extremities Exam Present: edema. Absent: cyanosis, clubbing - *Routine Skin Exam Present: warm. Absent: rash - *Routine Neurological Exam Present: alert, oriented X3 Assessment and Plan (1) Atrial fibrillation Status: Acute Category: Medical Code(s): I48.91 - Unspecified atrial fibrillation (2) Thrombocytopenia Status: Acute Category: Medical Code(s): D69.6 - Thrombocytopenia, unspecified (3) Severe sepsis with acute organ dysfunction Status: Acute Category: Medical Code(s): A41.9 - Sepsis, unspecified organism; R65.20 - Severe sepsis without septic shock (4) E coli bacteremia Status: Acute Category: Medical Code(s): R78.81 - Bacteremia; B96.20 - Unspecified Escherichia coli [E. coli] as the cause of diseases classified elsewhere (5) UTI (urinary tract infection) Status: Acute Qualifiers: Urinary tract infection type: site unspecified Hematuria presence: without hematuria Qualified Code(s): N39.0 - Urinary tract infection, site not specified Category: Medical Code(s): N39.0 - Urinary tract infection, site not specified (6) CAD (coronary artery disease) Status: Acute Category: Medical Code(s): I25.10 - Atherosclerotic heart disease of [place] coronary artery without angina pectoris (7) Elevated troponin Status: Acute Category: Medical Code(s): R77.8 - Other specified abnormalities of plasma proteins (8) Abnormal EKG Status: Acute Category: Medical Code(s): R94.31 - Abnormal electrocardiogram [ECG] [EKG] (9) History of CVA (cerebrovascular accident) Status: Acute Category: Medical Code(s): Z86.73 - Personal history of transient isch
[2021-11-14 17:28] LABS: POC Glucose,Bedside 408 (70-110)
[2021-11-15] VITALS (9 sets, daily range): BP systolic 130–161; BP diastolic 57–74; PULSE 60–68; RESP 16–18; TEMP 36.4–37; O2SAT 92–98
--- NOTE | 2021-11-15 03:39 | PC.NURSE ---
Pt remains on 3L NC. pt recieved additional dose of lasix for MAR pt diurese. pt received PRN Ativan for anxiety per MAR. pt rested well after dose. NSR with IVCD on tele
[2021-11-15 07:33] LABS: Basophils % 0.2 % (0.1-2.0); Eosinophils # 0.1 K/mm3 (0.0-0.4); Eosinophils % 0.9 % (0.1-12.0); Hematocrit 34.1 % (42.0-52.0); Hemoglobin 10.9 g/dL (14.1-18.0); Lymphocytes # 0.7 K/mm3 (0.7-4.5); Lymphocytes % 6.8 % (10-50); Mean Corpuscular HGB Conc 31.8 g/dL (31.8-35.4); Mean Corpuscular Hemoglobin 29.4 pg (27.0-31.2); Mean Corpuscular Volume 92.3 fl (80-94); Mean Platelet Volume 9.5 fl (7.4-10.4); Monocytes # 0.6 K/mm3 (0.1-1.0); Monocytes % 5.5 % (1.7-9.3); Neutrophils # 8.8 K/mm3 (1.8-7.8); Neutrophils % 86.5 % (37.0-80.0); Platelet Count 195 K/mm3 (142-424); Red Cell Distribution Width 14.2 % (11.5-17.5); White Blood Count 10.2 K/mm3 (4.8-10.8)
[2021-11-15 07:35] LABS: Anion Gap 9.7 mEq/L (5-15); Blood Urea Nitrogen 62 mg/dl (9-20); Calcium 7.9 mg/dl (8.4-10.2); Carbon Dioxide 22 mmol/L (22.0-30.0); Chloride 105 mmol/L (98-107); Creatinine Clearance Estimated 36 mL/min (50-200); Estimated Glomerular Filt Rate 23 ml/min (>60); GFR (African American) 28 ML/MIN (>60); Glucose 189 mg/dl (74-100); MANUAL DIFFERENTIAL MANUAL DIFFERENTIAL (MANUAL DIFF); Potassium 3.7 mmoL/L (3.5-5.1); Sodium 133 mmol/L (136-145)
[2021-11-15 08:26] LABS: Lymphocytes % 4 % (10-50); Monocytes % 4 % (2-9); Neutrophils % 91 % (42-76); Platelet Estimate Normal; Total Cells Counted 100
--- NOTE | 2021-11-15 08:33 | HMH.ACPN2 ---
Internal Medicine - PN: Subj *Date: 11/15/21 *Time: 08:33 Interval history: Patient is about to engage in physical therapy, is awake, alert, moving arms and legs about much better than yesterday's exam. States that everything went bad yesterday -but major complaint is the scrotum is swollen. Exam Vital signs and Labs for Last 24 Hours: Temp Pulse Resp BP Pulse Ox 98.3 F 68 16 161/74 H 95 11/15/21 08:00 11/15/21 08:00 11/15/21 08:00 11/15/21 08:00 11/15/21 08:00 Laboratory Results - last 24 hr 11/13/21 17:02: POC Glucose 334 H* 11/13/21 21:55: POC Glucose 313 H* 11/14/21 06:28: Sodium 133 L, Potassium 4.2, Chloride 105, Carbon Dioxide 20 L, Anion Gap 12.2, BUN 62 H, Creatinine 2.90 H, Estimated Creat Clear 33, Estimated GFR 21 L, Est GFR ( Amer) 26 L, Glucose 248 H, Calcium 8.2 L, Total Bilirubin 0.4, Direct Bilirubin 0.2, Conjugated Bilirubin 0.0, Indirect Bilirubin 0.2, Unconjugated Bilirubin 0.2, AST 19 D, ALT 25 D, Alkaline Phosphatase 134 H, Total Protein 5.6 L, Albumin 2.5 L, Triglycerides 146, Cholesterol 124 L, LDL Cholesterol Direct 70.28 L, VLDL Cholesterol 29, HDL Cholesterol 13 L, Cholesterol/HDL Ratio 9.5 H 11/14/21 07:50: POC Glucose 314 H* 11/14/21 16:37: POC Glucose 408 H* 11/15/21 06:29: WBC 10.2 D, RBC 3.70 L, Hgb 10.9 L, Hct 34.1 L, MCV 92.3, MCH 29.4, MCHC 31.8, RDW 14.2, Plt Count 195 D, MPV 9.5, Neut % (Auto) 86.5 H, Lymph % (Auto) 6.8 L, [place] % (Auto) 5.5, Eos % (Auto) 0.9, Baso % (Auto) 0.2, Neut # (Auto) 8.8 H, Lymph # (Auto) 0.7, [place] # (Auto) 0.6, Eos # (Auto) 0.1, Baso # (Auto) 0.0, Total Counted 100, Neutrophils % (Manual) 91 H, Lymphocytes % (Manual) 4 L, Monocytes % (Manual) 4, Blast Cells % 1.0, Platelet Estimate Normal 11/15/21 06:29: Sodium 133 L, Potassium 3.7, Chloride 105, Carbon Dioxide 22, Anion Gap 9.7, BUN 62 H, Creatinine 2.70 H, Estimated Creat Clear 36, Estimated GFR 23 L, Est GFR ( Amer) 28 L, Glucose 189 H, Calcium 7.9 L I & O for Last 24 hours: Intake & Output 11/12/21 11/13/21 11/14/21 11/15/21 11:59 11:59 11:59 11:59 Intake Total 1390 / 1390 480 / 480 610 / 610 520 / 520 Output Total 4000 / 4000 1350 / 1350 2480 / 2480 3700 / 3700 Balance -2610 / -2610 -870 / -870 -1870 / -1870 -3180 / -3180 Weight 249 lb 3.2 oz 252 lb 6.868 oz Microbiology Reports for the Last 24 Hours: Microbiology 11/12/21 07:13 Blood Blood Culture - Preliminary NO GROWTH AFTER 48 HOURS 11/12/21 07:13 Blood Blood Culture - Preliminary NO GROWTH AFTER 48 HOURS Narrative: Patient is alert, weak but improving, able to sit up on the side of the bed with therapy in a much easier fashion than previously. Lungs have scattered rhonchi but good air movement, heart rate is rale controlled vis-?-vis rate. Good distal perfusion. Abdomen soft, Rivera catheter draining clear yellow urine, he does have moderate scrotal edema around the catheter. No pedal edema. Assessment and Plan (1) Atrial fibrillation Status: Acute Category: Medical Code(s): I48.91 - Unspecified atrial fibrillation (2) Thrombocytopenia Status: Acute Category: Medical Code(s): D69.6 - Thrombocytopenia, unspecified (3) Severe sepsis with acute organ dysfunction Status: Acute Category: Medical Code(s): A41.9 - Sepsis, unspecified organism; R65.20 - Severe sepsis without septic shock (4) E coli bacteremia Status: Acute Category: Medical Code(s): R78.81 - Bacteremia; B96.20 - Unspecified Escherichia coli [E. coli] as the cause of diseases classified elsewhere (5) UTI (urinary tract infection) Status: Acute Qualifiers: Urinary tract infection type: site unspecified Hematuria presence: without hematuria Qualified Code(s): N39.0 - Urinary tract infection, site not specified Category: Medical Code(s): N39.0 - Urinary tract infection, site not specified (6) CAD (coronary artery disease) Status: Acut
[2021-11-15 11:27] LABS: POC Glucose,Bedside 243 (70-110)
[2021-11-15 11:27] LABS: POC Glucose,Bedside 372 (70-110)
--- NOTE | 2021-11-15 15:39 | PC.NURSE ---
Report given to Lauren Kent RN who assumes care of patient at this time
[2021-11-15 16:54] LABS: POC Glucose,Bedside 200 (70-110)
[2021-11-15 16:55] LABS: POC Glucose,Bedside 295 (70-110)
[2021-11-15 20:49] LABS: POC Glucose,Bedside 316 (70-110)
[2021-11-16] VITALS: BP 146/68; PULSE 60; PULSE 62; RESP 18; TEMP 36.6; O2SAT 98
[2021-11-16 04:00] VITALS: BP 155/64; PULSE 67; PULSE 70; RESP 18; TEMP 36.8; O2SAT 95
[2021-11-16 05:03] VITALS: BMI 34.2
[2021-11-16 06:20] VITALS: PULSE 76; O2SAT 91
[2021-11-16 07:14] LABS: Anion Gap 13.3 mEq/L (5-15); Blood Urea Nitrogen 61 mg/dl (9-20); Carbon Dioxide 19 mmol/L (22.0-30.0); Chloride 104 mmol/L (98-107); Creatinine Clearance Estimated 40 mL/min (50-200); Estimated Glomerular Filt Rate 26 ml/min (>60); GFR (African American) 32 ML/MIN (>60); Glucose 289 mg/dl (74-100); Potassium 4.3 mmoL/L (3.5-5.1); Sodium 132 mmol/L (136-145)
[2021-11-16 08:00] VITALS: BP 149/68; PULSE 67; PULSE 70; RESP 20; TEMP 36.7; O2SAT 92
--- NOTE | 2021-11-16 08:44 | HMH.DCSUM ---
General - General Admission date:: 11/08/21 Discharge date: 11/16/21 HPI HPI: Patient is a 81-year-old male who lives alone presenting to the emergency department with chief complaint of weakness. States that he is felt weak a month. Patient had an episode of vomiting about 2 hours prior. He was able to eat breakfast this morning. He is denying diarrhea, chest pain, shortness of air, dysuria, abdominal pain. Patient states that he has not had a fall. Patient's daughter confirms that patient has been more confused recently, states that he seemed to go downhill. Patient's daughter states that he had the episode of vomiting yesterday, as well as she had a report of nonbloody diarrhea. Daughter states that he seems more confused than usual, notes that he had some fluctuating blood sugars, and that they have had difficulty having him take p.o. confirms that he has been with him since 3 PM yesterday he has had no repeated diarrhea or emesis and has been able to eat. Above note per ER intake. ER work-up revealed no acute findings on CT scan, metabolic work-up showed acute kidney injury and dehydration. Initial troponin level was borderline. Patient admitted to medicine service for IV fluids, neurologic checks, further diagnostic testing and evaluation for possible change in level of care from living independently at home. Hospital Course Hospital Course: Patient was admitted, found to have severe sepsis secondary to initial UTI. Species with E. coli. Tolerated ceftriaxone well. Had positive blood cultures. Had convoluted hospital course complicated with rapid A. fib treated a couple of times with diltiazem infusions transition to oral diltiazem with escalating doses up to 180 daily. This proved to stabilize him and has been tolerating this well with no further episodes of A. fib since dose increase. Patient had significant acute kidney injury. Creatinine rising to 3.9. Is now on the downswing. Found to have a non-STEMI, felt that this was related to his A. fib and sepsis. Thrombocytopenia during hospitalization. Probably related to sepsis. Anticoagulation therapy was stopped. Patient will need to have compression stockings at [facility] to help with DVT prevention. Thrombocytopenia improved with sepsis improvement and cessation of clopidogrel. Significant weakness. His family reports this is been going on for quite a while, they have been contemplating changing his living situation from his independent living and on his farm house but he has been resistant. In the hospital required Rivera catheter secondary urinary retention and scrotal swelling, and also was found to have need for aggressive PT and OT and ongoing antibiotics and will be transferred today to [facility] for skilled care. He will be on diltiazem high-dose as noted. No indication for anticoagulation at this point. Rivera catheter will remain in place because of scrotal swelling. He will need to have his scrotum elevated during the day while he is in bed. Please begin back bladder training per facility protocol. We will follow him on our service at [facility]. Please note he will require Levaquin dosage at 750 mg IV every 48 hours [facility]. He will have a dose today before discharge so he will need a dose on November 18, November 20 and November 22. This will complete his treatment for E. coli sepsis and UTI. His diet will remain the same. He will need a PT/OT/speech evaluation. Patient will need CBC/BMP on November 20. Objective Vital signs: Temp Pulse Resp BP Pulse Ox 98.3 F 76 18 155/64 H 91 L 11/16/21 04:00 11/16/21 06:20 11/16/21 04:00 11/16/21 04:00 11/16/21 06:20 no acute distress, obese - *Routine HEENT Exam Head: Present: normocephalic Eye: Present: EOMI, PERRL ENT: Present: mucous membranes moist - *Routine Neck Exam Present: supple - *Routine Respiratory Exam Present: CTA bilaterall
[2021-11-16 09:01] LABS: Coronavirus 19, PCR Not Detected (NotDetected); Influenza A, PCR Not Detected (NotDetected); Influenza B, PCR Not Detected (NotDetected)
--- NOTE | 2021-11-16 10:41 | PC.NURSE ---
Fleets enema given. Pt. tolerated well. Pt. on bedpan, no needs noted, will continue to monitor.
[2021-11-16 12:00] VITALS: BP 162/62; PULSE 60; RESP 18; TEMP 36.7; O2SAT 90
--- NOTE | 2021-11-16 12:00 | PC.NURSE ---
Report called to Tenisha at [facility].
--- NOTE | 2021-11-16 13:29 | PC.NURSE ---
IV in RAC noted to be hard to push and leaking back around catheter, arm is edematous. IV removed, pt. tolerated well. 2X2 with [address] in [address].
--- NOTE | 2021-11-16 13:42 | PC.NURSE ---
Pt. left unit via [facility] accompanied by [facility] staff x2. Family reports belongings already taken to families car.
[2021-11-16 14:25] LABS: POC Glucose,Bedside 344 (70-110)
[2021-11-16 14:25] LABS: POC Glucose,Bedside 280 (70-110)
== END 2021-11-16 13:42 | DRG 871 ==
LOC: ER 10:03 → 2ND 11-09 07:30 → ICU 11-10 07:10 → 2ND 11-11 12:35
PROVIDERS: Emergency Medicine; Internal Medicine Adolescent Medicine; Nurse Practitioner Family; Admitting Provider Internal Medicine Adolescent Medicine; Emergency Provider Emergency Medicine; PCP Internal Medicine; Visit Provider Internal Medicine Adolescent Medicine
DX: A41.51 Sepsis due to Escherichia coli [E. coli] (principal); I21.4 Non-ST elevation (NSTEMI) myocardial infarction; N17.9 Acute kidney failure, unspecified; G93.40 Encephalopathy, unspecified; N39.0 Urinary tract infection, site not specified; Z79.84 Long term (current) use of oral hypoglycemic drugs; Z85.9 Personal history of malignant neoplasm, unspecified; K21.9 Gastro-esophageal reflux disease without esophagitis; E78.5 Hyperlipidemia, unspecified; Z86.73 Personal history of transient ischemic attack (TIA), and cerebral infarction without residual deficits; E66.9 Obesity, unspecified; Z68.34 Body mass index [BMI] 34.0-34.9, adult; M19.90 Unspecified osteoarthritis, unspecified site; I35.0 Nonrheumatic aortic (valve) stenosis; Z20.822 Contact with and (suspected) exposure to COVID-19; Z95.1 Presence of aortocoronary bypass graft; R65.20 Severe sepsis without septic shock; E11.22 Type 2 diabetes mellitus with diabetic chronic kidney disease; I12.9 Hypertensive chronic kidney disease with stage 1 through stage 4 chronic kidney disease, or unspecified chronic kidney disease; N18.30 Chronic kidney disease, stage 3 unspecified; R33.9 Retention of urine, unspecified; N50.89 Other specified disorders of the male genital organs; I48.91 Unspecified atrial fibrillation; D69.6 Thrombocytopenia, unspecified
CPT/HCPCS: 36415; 70450; 71045; 74018; 74176; 80048; 80053; 80061; 80076; 81001; 82803; 82962; 83036; 83605; 83735; 83880; 84100; 84484; 85007; 85025; 85610; 87040; 87077; 87086; 87088; 87186; 93005; 93306; 93308; 93880; 94640; 94761; 96365; 97110; 97163; 97166; 97530; 97535; 99284; C9803; J0696; J1956; U0003; U0005

== ENCOUNTER → 2022-01-31 15:02 | Outpatient (CLI) | payer MEDICARE, SELFPAY ==
[2022-01-31 15:38] LABS: Basophils # 0.1 K/mm3 (0-0.2); Basophils % 0.5 % (0.1-2.0); Eosinophils # 0.1 K/mm3 (0.0-0.4); Eosinophils % 0.9 % (0.1-12.0); Hematocrit 37.9 % (42.0-52.0); Hemoglobin 12.2 g/dL (14.1-18.0); Lymphocytes # 1.4 K/mm3 (0.7-4.5); Lymphocytes % 13.5 % (10-50); Mean Corpuscular HGB Conc 32.2 g/dL (31.8-35.4); Mean Corpuscular Hemoglobin 29.9 pg (27.0-31.2); Mean Corpuscular Volume 92.9 fl (80-94); Mean Platelet Volume 8.1 fl (7.4-10.4); Monocytes # 0.6 K/mm3 (0.1-1.0); Monocytes % 5.6 % (1.7-9.3); Neutrophils # 8.4 K/mm3 (1.8-7.8); Neutrophils % 79.4 % (37.0-80.0); Platelet Count 302 K/mm3 (142-424); Red Blood Count 4.08 M/mm3 (4.60-6.20); Red Cell Distribution Width 15.6 % (11.5-17.5); White Blood Count 10.6 K/mm3 (4.8-10.8)
[2022-01-31 16:24] LABS: Chloride 104 mmol/L (98-107); Potassium 4.8 mmoL/L (3.5-5.1); Sodium 135 mmol/L (136-145)
[2022-01-31 16:27] LABS: Anion Gap 10.8 mEq/L (5-15); Blood Urea Nitrogen 30 mg/dl (9-20); Calcium 7.9 mg/dl (8.4-10.2); Carbon Dioxide 25 mmol/L (22.0-30.0); Estimated Glomerular Filt Rate 39 ml/min (>60); GFR (African American) 47 ML/MIN (>60); Glucose 139 mg/dl (74-100); Magnesium 1.9 mg/dl (1.6-2.3)
== END ==
PROVIDERS: Visit Provider Nurse Practitioner Family
DX: I25.10 Atherosclerotic heart disease of native coronary artery without angina pectoris (principal)
CPT/HCPCS: 80048; 83735; 85025

== ENCOUNTER → 2022-02-01 11:49 | Outpatient (CLI) | payer MEDICARE, SELFPAY | PROVIDERS: Visit Provider Nurse Practitioner Family | DX: I25.10 Atherosclerotic heart disease of native coronary artery without angina pectoris (principal) | CPT/HCPCS: 93225; 93226 ==

== ENCOUNTER 2022-02-22 09:22 | Day surgery (SDC) | payer MEDICARE, SELFPAY ==
[2022-02-22] VITALS (7 sets, daily range): BP systolic 88–145; BP diastolic 52–87; PULSE 69–105; RESP 18; O2SAT 93–99; BMI 28.5
--- NOTE | 2022-02-22 07:07 | IR_ITS ---
APPROVED REPORT Patient Location: [facility] Professional: MAYA Munoz RT (R) PROCEDURES 1. Pocket formation for Cardiac Resynchronization Therapy- Pacemaker Placement. 2. Placement of an atrial sensing and pacing coil into the right atrial appendage. 3. Placement of left ventricular sensing pacing lead via the coronary sinus. 4. Placement of a ventricular sensing and pacing coil in the right ventricular apex. 5. Cardiac Resynchronization Therapy- Pacemaker Placement. INDICATION Sick Sinus Syndrome, Bundle Branch Block Informed consent was obtained prior to the procedure. COMPLICATIONS NONE Estimated Blood Loss: LESS THAN 10 ML TECHNIQUE 1% Lidocaine with epinephrine used to anesthetized the left anterior aspect of the chest. Scalpel was used to make the initial cutaneous incision while electrocautery was used to dissect down tinto the fascia. The fascia was lifted off the pectoralis muscle and digitally manipulated creating a pocket for the pacemaker. The patient was then placed in Trendelenburg position and the subclavian vein was accessed three times via the Selinger technique, there are three wires in the vein. A 9.5 Mauritanian sheath and dilator was then placed over one of the wires while keeping the other two wires in place within the subclavian vein. The dilator was removed from the sheath. Using fluoroscopic guidance, contrast was used to visualize the coronary sinus, the left ventricular lead was placed into the coronary sinus. Electronic interrogation proved acceptable thresholds and voltage within the lead. Using 3-0 silk, the left ventricular lead was then secured into place and sheath peeled away. A 6 Mauritanian sheath was placed under fluoroscopic guidance into the subclavian vein over one of the wires while keeping the other wire in place within the subclavian vein. The dilator was removed from the sheath. Using fluoroscopic guidance, the ventricular lead was placed into the right ventricular apex, screwed and secured into place. Electronic interrogation proved acceptable thresholds and voltage within the lead. Using 3-0 silk, the ventricular lead was then secured into place. Lead was secured to the facia using the 3-0 silk. Following this, the sheath was pealed away. An additional 6 Mauritanian fresh sheath and dilator was placed over the existing wire. Using fluoroscopic guidance, the atrial lead was the placed into the right atrial appendage and screwed and secured in place. Electrical interrogation demonstrated acceptable thresholds and voltage number. The atrial lead was then secured into place using 3-0 silk. 1 gram of Ancef was used to flush the pocket. Following the pacemaker generator being secured to the fascia and in place, Monocryl was used to close the subcutaneous layers while maria victoria were used to close the cutaneous layer. A pressure dressing was placed and the patient was transferred to the postop holding area in stable condition for postoperative care. INTERROGATION Generator Model number: Sleepy'sIST X4 PREHEMMER-P, U228 Generator Serial number: [id number] Atrial lead model number: INGEVITY+ 52CM, 7841 Atrial lead serial number: [id number] P-wave: 4.0 mV Impedence: 1.0V@0.4ms Threshold: 700 ohms Current: 1.5 mA Right Ventricular lead model number: INGEVITY+ 59CM, 7842 Right Ventricular lead serial number: [id number] R-wave: 12.0 mV Impedence: 1.0V@0.4ms Threshold: 900 ohms Current: 1.2 mA Left Ventricular lead model number: ACUITY X4 Straight 86CM, 4671 Left Ventricular lead serial number: [id number] R-wave: 11.0 mV Impedence: 2.2V@0.4ms Threshold: 1700 ohms Current: 1.3 mA Pacing Parameters: Mode: DDDR Base/Max Track:60 ppm / 130 ppm
[2022-02-22 09:56] LABS: Basophils # 0.1 K/mm3 (0-0.2); Basophils % 1.8 % (0.1-2.0); Eosinophils # 0.3 K/mm3 (0.0-0.4); Eosinophils % 4.1 % (0.1-12.0); Hematocrit 44.6 % (42.0-52.0); Hemoglobin 14.4 g/dL (14.1-18.0); Lymphocytes # 2.7 K/mm3 (0.7-4.5); Lymphocytes % 37.1 % (10-50); Mean Corpuscular HGB Conc 32.2 g/dL (31.8-35.4); Mean Corpuscular Hemoglobin 29.8 pg (27.0-31.2); Mean Corpuscular Volume 92.6 fl (80-94); Mean Platelet Volume 8.1 fl (7.4-10.4); Monocytes # 0.5 K/mm3 (0.1-1.0); Monocytes % 6.8 % (1.7-9.3); Neutrophils # 3.7 K/mm3 (1.8-7.8); Neutrophils % 50.1 % (37.0-80.0); Platelet Count 355 K/mm3 (142-424); Red Blood Count 4.82 M/mm3 (4.60-6.20); Red Cell Distribution Width 15.4 % (11.5-17.5); White Blood Count 7.3 K/mm3 (4.8-10.8)
[2022-02-22 10:19] LABS: Anion Gap 14.2 mEq/L (5-15); Blood Urea Nitrogen 30 mg/dl (9-20); Calcium 9.2 mg/dl (8.4-10.2); Carbon Dioxide 24 mmol/L (22.0-30.0); Chloride 106 mmol/L (98-107); Creatinine Clearance Estimated 58 mL/min (50-200); Estimated Glomerular Filt Rate 49 ml/min (>60); GFR (African American) 59 ML/MIN (>60); Glucose 213 mg/dl (74-100); Potassium 4.2 mmoL/L (3.5-5.1); Sodium 140 mmol/L (136-145)
--- NOTE | 2022-02-22 10:26 | P.PN_ITS ---
[facility] Anesthesia Checklist - Patient Identification Patient Identification: Arm Band - Structural Data Admitted From: Long-term Nursing Facility Planned Operative Procedure/s: Pacemaker Consent for Planned Operative Procedure(s) Verified: Yes - NPO Status Verified Time NPO: 00:00 - Airway Assessment C-Spine Mobility Assessed: Yes TMJ Mobility Assessed: Yes Dentition: Poor Dentition - Neurological Assessment Level of Consciousness: Awake Hx Seizures: No Numbness or tingling in extremities: No - Anesthesia Plan Anesthesia Risk discussed: Yes Anesthesia Plan: Verified ASA Class: III Anesthesia Type: MAC [facility] History I have reviewed the patient's past medical history: Yes Medical History: Reports:: Arrhythmia, Atrial Fibrillation, Coronary Artery Disease, Cerebrovascular Accident, Diabetes Mellitus Type 2, Gastroesophageal Reflux Disease(GERD), Hyperlipidemia, Hypertension, Palpitations, Transient Ischemic Attacks (TIA) Denies:: Cancer, Diabetes Mellitus Type 1, Internal Pacemaker, MRSA, Seizures *Have you ever received a pneumonia vaccine?: Yes *Have you received a flu vaccine this season?: Yes Other Medical History: Reports: Arthritis, Cataracts Anesthesia experience/problems:: None Laterality Cases: Bilateral: Arthroscopy Shoulder, Carpal Tunnel Release Other Surgeries: Yes: Cancer Surgery, Cardiac Catheterization, Cardiac Surgery, Colonoscopy. No: Pacemaker Amputation: No Fractures: Yes (fractured ribs 25 years ago ) - *Social History Last grade of school completed: 11th or 12th Smoking Status: Former smoker Tobacco Type: smokeless tobacco # Packs/Day (cigarettes): 0 Alcohol Intake: never Substance Use Type: denies use *Occupational Status:: retired Housing: assisted living facility Household Members: none *Travel in the last 8 weeks: None Family Hx:: Heart Attack
--- NOTE | 2022-02-22 13:19 | XR_ITS ---
FINAL REPORT CLINICAL HISTORY: post pacemaker COMPARISON: November 08, 2021 FINDINGS: A single portable view of the chest was obtained. There is a new left subclavian pacemaker. There are postoperative changes from prior sternotomy. The heart size and pulmonary vascularity are within normal limits. The mediastinum is within normal limits. No acute pulmonary abnormality is identified. There are postoperative changes from right shoulder arthroplasty. IMPRESSION: Left subclavian pacemaker without pneumothorax. Reviewed, Interpreted and Dictated by David Rosa III, MD Transcribed by Donald Casper Authenticated by David Rosa III, MD on 02/22/2022 02:51:51 PM [facility]
[2022-02-22 15:17] LABS: POC Glucose,Bedside 322 (70-110)
== END 2022-02-22 15:25 | disposition home or self-care (01) ==
LOC: CATHLAB 09:23
PROVIDERS: Physician Assistant; Visit Provider Internal Medicine
DX: I25.10 Atherosclerotic heart disease of native coronary artery without angina pectoris (principal); I35.0 Nonrheumatic aortic (valve) stenosis; I48.91 Unspecified atrial fibrillation; I49.5 Sick sinus syndrome; I95.1 Orthostatic hypotension; Z86.73 Personal history of transient ischemic attack (TIA), and cerebral infarction without residual deficits; Z86.79 Personal history of other diseases of the circulatory system; Z95.1 Presence of aortocoronary bypass graft; Z79.4 Long term (current) use of insulin; E11.9 Type 2 diabetes mellitus without complications; Z79.899 Other long term (current) drug therapy; Z87.891 Personal history of nicotine dependence
CPT/HCPCS: 33208; 71045; 80048; 82962; 85025; C1769; C1898; C1900; C2621; J2704; Q9967

== ENCOUNTER → 2022-03-13 12:05 | Outpatient (CLI) | payer MEDICARE, SELFPAY ==
--- NOTE | 2022-03-13 12:05 | CA_ITS ---
APPROVED REPORT EXAM: Comprehensive 2D, Doppler, and color-flow Echocardiogram Plan Examiner: Monalisa Rogers RVT Ht: 6 ft 0 in Wt: 202lbs BSA: 2.14 BP: 126/63 mmHg Indications: SOA,MILD ,CABG,PACER,EX SMOKER,CAD,GERD,HTN,HLD,SYNCOPE,PALPS TDS-PT SCANNED IN W/C 2D Dimensions LVOT 2.68 cm (M/F) 1.5-2.5 LA Volume 50.50 mL LA Volume Index 23.59 mL/m2 (M/F) 16-34 M-Mode Dimensions RVDd 2.04 cm (0.9-2.6) LA Diam 3.62 cm (1.9-4.0) LVDd 5.39 cm (3.5-5.7) Ao Diam 3.66 cm (2.0-3.7) LVDs 3.82 cm (3.5-5.7) IVSd 0.55 cm (0.6-1.1) PWd 1.19 cm (0.6-1.1) EF (Teich) 55.40% FS 29.10% EDV (Teich) 140.70 mL ESV (Teich) 62.70 mL LV Diastology E Decel Time 233.00 (160-240 msec) E/A Ratio 0.8 MED E' 5.00 (< 7 cm/sec) E'/MED E' Ratio 10.02 (>14) LAT E' 6.70 (<10 cm/sec) E/LAT E' Ratio 7.48 (>14) Aortic Valve LVOT Max 69.00 (70-110 cm/s) LVOT VTI 16.32 cm AoV Peak Vadim. 207.00 (50-130 cm/s) AI PHT 474.00 ms AO Peak GR. 17.20 mmHg AO Mean GR. 10.70 (<5 mmHg) AO VTI 44.76 (18-25 cm) ANALY (VTI) 2.06 (2.5-4.5 cm2) Mitral Valve MV E Max Vadim. 50.00 (40-130 cm/s) MV A Velocity 63.00 (40-130 cm/s) E/A Ratio 0.80 MV Decel. Time 233.00 (160-240 ms) MV PHT 68.00 ms Pulmonary Valve PV Peak Velocity 73.00 (50-150 cm/s) Tricuspid Valve TR P. Velocity 191.00 cm/s RAP Estimate 10.00 mmHg RVSP 24.50 mmHg Left Ventricle Technically difficult and poor study, left atrium is mildly enlarged, left ventricle is normal size, mild concentric left ventricular hypertrophy, estimated ejection fraction 55% with no regional wall motion abnormality, grade 1 diastolic dysfunction seen without tissue Doppler evidence of raise left atrial pressure. Right Ventricle Right atrium and right ventricle are mildly enlarged with normal contractility, pacemaker leads in right atrium and right ventricle. Aortic Valve Aortic valve is thickened and calcified Doppler is inadequate for calculation of the aortic stenosis, likely there is mild aortic stenosis, there is mild aortic insufficiency. Mitral Valve Mitral valve leaflets are minimally thickened, there is mild mitral regurgitation. Tricuspid Valve Tricuspid valve is grossly normal, there is mild tricuspid regurgitation, tricuspid regurgitation jet velocity is inadequate for calculation of the right ventricular systolic pressure. Pulmonic Valve Pulmonic valve is poorly visualized. Great Vessels Aortic root is normal size. Inferior vena cava is poorly visualized. Pericardium No significant pericardial effusion. Conclusion 1. Technically difficult and poor studies. 2. Mild biatrial enlargement, normal left ventricular size, mild concentric left ventricular hypertrophy, estimated ejection fraction 55% with no regional wall motion abnormality, grade 1 diastolic dysfunction seen without tissue Doppler evidence of raise left atrial pressure. 3. Mildly enlarged right ventricle with normal contractility 4. Thickened and calcified aortic valve as described above likely mild aortic stenosis and mild aortic insufficiency. 5. Mild mitral and tricuspid regurgitation. 6. No significant pericardial effusion noted. Electronically signed by : Aj Berman MD 03/13/2022 20:16:52
[2022-03-13 12:46] LABS: Blood Urea Nitrogen 33 mg/dl (9-20); Estimated Glomerular Filt Rate 42 ml/min (>60); GFR (African American) 51 ML/MIN (>60)
--- NOTE | 2022-03-13 12:57 | CT_ITS ---
FINAL REPORT TECHNIQUE: Axial images through the chest were performed by computed tomography before and after the administration of IV contrast. This study was performed with techniques to keep radiation doses as low as reasonably achievable, (ALARA). Individualized dose reduction techniques using automated exposure control or adjustment of mA and/or kV according to the patient's size were employed. CLINICAL HISTORY: dyspnea/syncope COMPARISON: CT abdomen and pelvis dated November 10, 2021 FINDINGS: There are several small hypodense right thyroid nodules, nonspecific. There is no axillary lymphadenopathy. There is a right paratracheal fluid collection favored to represent a benign mediastinal cyst. This does not enhance. There is no hilar lymphadenopathy. The heart size is normal. There is a trace right pleural effusion. There is no pericardial or left pleural effusion. There is an 11 mm right upper lobe nodule on series 4, image 16. It may be slightly spiculated. There is a 1.8 cm pleural based left lower lobe nodule which is similar to a CT abdomen pelvis from November 10 2021. Limited images of the upper abdomen demonstrate a right adrenal adenoma measuring 2.8 cm and a left adrenal adenoma measuring 2.3 cm. IMPRESSION: 1. Bilateral pulmonary nodules, neoplasm not excluded. Recommend PET-CT for further evaluation. 2. 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 3. Bilateral adrenal adenomas. Reviewed, Interpreted and Dictated by Jenae Herrera MD Transcribed by Mendy Oviedo Authenticated by Jenae Herrera MD on 03/13/2022 03:17:48 PM [facility]
== END ==
PROVIDERS: Physician Assistant; PCP Internal Medicine; Visit Provider Nurse Practitioner Family
DX: I25.10 Atherosclerotic heart disease of native coronary artery without angina pectoris (principal); I35.0 Nonrheumatic aortic (valve) stenosis; I48.91 Unspecified atrial fibrillation; I49.5 Sick sinus syndrome; I95.1 Orthostatic hypotension; R00.2 Palpitations; R06.00 Dyspnea, unspecified; R53.83 Other fatigue; R63.4 Abnormal weight loss; Z86.73 Personal history of transient ischemic attack (TIA), and cerebral infarction without residual deficits; Z86.79 Personal history of other diseases of the circulatory system; Z95.0 Presence of cardiac pacemaker; Z95.1 Presence of aortocoronary bypass graft
CPT/HCPCS: 36415; 71270; 82565; 84520; 93306; Q9967

== ENCOUNTER → 2022-09-07 11:55 | Outpatient (CLI) | payer MEDICARE, SELFPAY ==
[2022-09-07 12:09] LABS: Microscopic, Urine URINE MICROSCOPIC (MICROSCOPIC)
[2022-09-07 13:19] LABS: Appearance,Urine CLOUDY (Clear); Blood, Urine 3+ (Negative); Color,Urine BROWN (Yellow); Glucose,Urine (UA) 2+ (Negative); Ketones,Urine Negative (Negative); Leukocyte Esterase,Urine 1+ (Negative); Nitrate,Urine Negative (Negative); Protein,Urine 2+ (Negative)
[2022-09-07 15:55] LABS: Bilirubin,Urine Negative (Negative)
[2022-09-07 16:00] LABS: Bacteria,Urine 4+ /lpf; RBC,Urine Occasional #/hpf (0-3); Squamous Epithelial Cell,Urine 20-50 #/hpf (0-5); WBC,Urine TNTC #/hpf (0-3)
== END ==
PROVIDERS: PCP Internal Medicine Adolescent Medicine; Visit Provider Nurse Practitioner Family
DX: N39.0 Urinary tract infection, site not specified (principal); B95.7 Other staphylococcus as the cause of diseases classified elsewhere; B95.4 Other streptococcus as the cause of diseases classified elsewhere
CPT/HCPCS: 81001; 87086; 87088; 87186

== ENCOUNTER 2024-11-12 13:56 | Outpatient (CLI) | payer MEDICARE, MEDICAID, SELFPAY ==
[2024-11-12 14:28] LABS: Basophils # 0.1 K/mm3 (0-0.2); Basophils % 0.6 % (0.1-2.0); Eosinophils # 0.4 K/mm3 (0.0-0.4); Eosinophils % 4.6 % (0.1-12.0); Hematocrit 43.6 % (42.0-52.0); Hemoglobin 14.2 g/dL (14.1-18.0); Lymphocytes # 1.3 K/mm3 (0.7-4.5); Mean Corpuscular HGB Conc 32.6 g/dL (31.8-35.4); Mean Corpuscular Hemoglobin 29.8 pg (27.0-31.2); Mean Corpuscular Volume 91.6 fl (80-94); Mean Platelet Volume 10.2 fl (7.4-10.4); Monocytes # 0.7 K/mm3 (0.1-1.0); Monocytes % 8.4 % (1.7-9.3); Neutrophils # 5.6 K/mm3 (1.8-7.8); Neutrophils % 69.6 % (37.0-80.0); Platelet Count 202 K/mm3 (142-424); Red Blood Count 4.76 M/mm3 (4.60-6.20); Red Cell Distribution Width 13.4 % (11.5-17.5)
[2024-11-12 15:23] LABS: Anion Gap 15.6 mEq/L (5-15); Blood Urea Nitrogen 36 mg/dl (9-20); Calcium 9.3 mg/dl (8.4-10.2); Carbon Dioxide 24 mmol/L (22.0-30.0); Chloride 105 mmol/L (98-107); Estimated Glomerular Filt Rate 39 ml/min (>60); GFR (African American) 47 ML/MIN (>60); Glucose 157 mg/dl (74-100); Potassium 4.6 mmoL/L (3.5-5.1); Sodium 140 mmol/L (136-145)
== END 2024-11-12 23:59 | disposition home or self-care (01) ==
LOC: LAB 13:57
PROVIDERS: PCP Internal Medicine Adolescent Medicine; Visit Provider Internal Medicine Adolescent Medicine
DX: I95.1 Orthostatic hypotension (principal)
CPT/HCPCS: 80048; 85025

== ENCOUNTER 2025-02-01 11:53 | Outpatient (CLI) | payer MEDICARE, MEDICAID, SELFPAY ==
[2025-02-01 13:53] LABS: Microscopic, Urine URINE MICROSCOPIC (MICROSCOPIC)
[2025-02-01 14:03] LABS: Appearance,Urine CLEAR (Clear); Bilirubin,Urine Negative (Negative); Blood, Urine 2+ (Negative); Color,Urine YELLOW (Yellow); Glucose,Urine (UA) 3+ (Negative); Ketones,Urine Negative (Negative); Leukocyte Esterase,Urine Negative (Negative); Nitrate,Urine Negative (Negative); Protein,Urine Negative (Negative); Urobilinogen,Urine 0.2 EU/dl (0.2)
[2025-02-01 14:21] LABS: RBC,Urine 20-50 #/hpf (0-3); Squamous Epithelial Cell,Urine Occasional #/hpf (0-5); WBC,Urine Occasional #/hpf (0-3)
[2025-02-01 14:56] LABS: Chloride 105 mmol/L (98-107); Potassium 4.5 mmoL/L (3.5-5.1); Sodium 137 mmol/L (136-145)
[2025-02-01 14:59] LABS: Anion Gap 11.5 mEq/L (5-15); Blood Urea Nitrogen 26 mg/dl (9-20); Calcium 8.6 mg/dl (8.4-10.2); Carbon Dioxide 25 mmol/L (22.0-30.0); Estimated Glomerular Filt Rate 49 ml/min (>60); GFR (African American) 59 ML/MIN (>60); Glucose 160 mg/dl (74-100)
== END 2025-02-01 23:59 | disposition home or self-care (01) ==
LOC: LAB.DROPOF 11:58
PROVIDERS: PCP Internal Medicine Adolescent Medicine; Visit Provider Internal Medicine Adolescent Medicine
DX: N18.31 Chronic kidney disease, stage 3a (principal)
CPT/HCPCS: 80048; 81001

== ENCOUNTER 2025-02-01 13:40 | Outpatient (CLI) | payer MEDICARE, MEDICAID, SELFPAY | END 2025-02-01 23:59 | disposition home or self-care (01) | LOC: LAB.DROPOF 13:41 | PROVIDERS: PCP Internal Medicine Adolescent Medicine; Visit Provider Internal Medicine Adolescent Medicine | DX: N39.0 Urinary tract infection, site not specified (principal) ==